=== PATIENT | male | born 1955 | race Caucasian/White ===

== ENCOUNTER 2016-12-11 09:18 | Emergency (ER) | payer MEDICARE, OTHER ==
[2016-12-11 09:29] VITALS: PULSE 16; RESP 67; TEMP 98.5
--- NOTE | 2016-12-11 09:36 | ED ---
Male Urogenital HPI - General Chief complaint: Urogenital Stated complaint: cathetar Time Seen by Provider: 12/11/16 09:31 Source: patient, family, RN notes reviewed Mode of arrival: wheelchair Limitations: no limitations - History of Present Illness Initial comments: Patient is a 61-year-old male presents to the emergency room for evaluation of Connell catheter issues. Patient has been here multiple times for removal and insertion of Connell catheter due to discomfort. Patient states he recently had an appointment with Dr. Siddiqui last month. Patient states Dr. Siddiqui removed the catheter for him even though it needs to be placed for 6 months. Patient states he has a Connell catheter for "weak bladder". Patient states he had the Connell catheter replaced about 2 weeks ago and he is now having discomfort and wants it removed again. Patient states that the catheter is pulling and irritating the tip of his penis. Patient states he stays at the [facility]. Patient states they do not take care of of his catheter. Patient states he wants it removed today. Patient states he was has discomfort every time Connell catheter is inserted. Patient denies any other symptoms or complaints at this time. Denies fevers, chills, shortness breath, chest pain, abdominal pain, nausea, vomiting. - Related Data Home Medications Medication Instructions Recorded Confirmed Aspirin 325 mg PO BID 09/18/16 12/11/16 Carbidopa-Levodopa 25-100 mg 1 tab PO QID 09/18/16 12/11/16 [Sinemet 25-100] Cholecalciferol [Vitamin D3] 1,000 unit PO DAILY 09/18/16 12/11/16 Docusate [Colace] 100 mg PO BID 09/18/16 12/11/16 Escitalopram [Lexapro] 15 mg PO DAILY 09/18/16 12/11/16 Loratadine [Claritin] 10 mg PO DAILY 09/18/16 12/11/16 Melatonin 10 mg PO HS 09/18/16 12/11/16 Menthol/Zinc Oxide [Calmoseptine 1 applic TOPICAL DAILY PRN 09/18/16 12/11/16 Ointment] Polyethylene Glycol 3350 [Miralax] 17 gm PO DAILY 09/18/16 12/11/16 Primidone [Mysoline] 250 mg PO BID 09/18/16 12/11/16 Propranolol [Inderal] 20 mg PO BID 09/18/16 12/11/16 Tamsulosin HCl [Flomax] 0.8 mg PO HS 09/18/16 12/11/16 clonazePAM [Clonazepam] 1 mg PO TID 09/18/16 12/11/16 LORazepam [Ativan] 2 mg PO HS 10/03/16 12/11/16 Previous Rx's Medication Instructions Recorded traMADol HCl [Ultram] 100 mg PO Q6HR PRN #60 tab 01/20/16 Sulfamethox-Tmp 800-160Mg [Bactrim 1 tab PO Q12HR 7 Days 10/23/16 DS 800-160 mg] Ciprofloxacin HCl [Cipro] 500 mg PO Q12HR 7 Days 12/11/16 Allergies Allergy/AdvReac Type Severity Reaction Status Date / Time No Known Allergies Allergy Verified 12/11/16 09:29 Review of Systems ROS Statement: Those systems with pertinent positive or pertinent negative responses have been documented in the HPI. ROS Other: All systems not noted in ROS Statement are negative. Past Medical History Past Medical History: Prostate Disorder Additional Past Medical History / Comment(s): Cerebral Palsy History of Any Multi-Drug Resistant Organisms: MRSA Date of last positivie culture/infection: 10/01/16 MDRO Source:: URINE Past Surgical History: Joint Replacement, Orthopedic Surgery, Prostate Surgery Additional Past Surgical History / Comment(s): 01/18/16 Total R hip arthroplasty. Other surgeries: LT HIP REPLACEMENT, TURP, hand tendon surg. Past Anesthesia/Blood Transfusion Reactions: No Reported Reaction Past Psychological History: No Psychological Hx Reported, Unable to Obtain Additional Psychological History / Comment(s): SUICIDE ATTEMPT OCTOBER 2013. Pt resides at [facility]. He is assisted into a wheelchair. He needs assistance with ADL's. Smoking Status: Never smoker Past Alcohol Use History: None Reported, Occasional Additional Past Alcohol Use History / Comment(s): Pt will drink a beer on occasion. Past Drug Use History: None Reported - Past Family History Mother Family Medical History: No Reported History Additional Family Medical History / Comment(s): Mother is healthy and is 91 yrs old. Father Family Medical History: Myocardial Infarction ([place]) Additional Family Medical History / Comment(s): Father at age 59. He had several NC's. General Exam - General Exam Comments Initial Comments: Laying in exam room, no acute distress. Limitations: no limitations General appearance: alert, in no apparent distress Head exam: Present: atraumatic, normocephalic, normal inspection Eye exam: Present: normal appearance ENT exam: Present: normal exam Neck exam: Present: normal inspection Respiratory exam: Present: normal lung sounds bilaterally. Absent: respiratory distress Cardiovascular Exam: Present: regular rate, normal rhythm, normal heart sounds GI/Abdominal exam: Present: soft, normal bowel sounds. Absent: distended, tenderness, guarding, rebound, rigid exam: Present: other (Open sore at the tip of the penis from connell catheter pulling. Hair wrapped around connell catheter at the opening of the uretha.) Back exam: Present: normal inspection Neurological exam: Present: alert, oriented X3 Psychiatric exam: Present: normal affect, normal mood Skin exam: Present: warm, dry, intact, normal color. Absent: rash Course Vital Signs 12/11/16 12/11/16 09:26 09:42 Temperature 98.5 F Pulse Rate 16 L Respiratory 67 H Rate Blood Pressure 122/88 O2 Sat by Pulse 97 Oximetry Medical Decision Making - Medical Decision Making Patient is a 61-year-old male presents emergency room for Connell catheter removal. Patient has been here multiple times for insertion and insertion of Connell catheter. Patient states he felt with Dr. Siddiqui last month and refuses to follow-up with him again. Patient states he stays at the [facility]. Patient's tip of penis is irritated with an open sore from Connell catheter pulling. There is also hair wrapped around the Connell catheter at the opening of the urethra. It appears that staff at the [facility] are not taking proper care patient's Connell catheter, which could be the cause of his discomfort. I offered to replace patient's Connell catheter. Patient refused replacement of Connell Catheter. Patient states he wants Connell catheter removed. I did discuss with patient that if we remove the Connell catheter he has risk of urinary retention and increase of infection. Patient states he understands everything that was discussed with him and states he still wants the Connell catheter removed. Urine suspicious for urinary tract infection. Patient was placed on antibiotics. I will provide patient with another urologist to follow-up with since he does not want to follow-up with Dr. Siddiqui. Return parameters discussed. Case discussed with Dr. Ackerman. - Lab Data Lab Results 12/11/16 Range/Units 10:01 Urine Color Yellow Urine Appearance Turbid (Clear) Urine pH 5.5 (5.0-8.0) Ur Specific [place] 1.018 (1.001-1.035) Urine Protein Trace H (Negative) Urine Glucose (UA) Negative (Negative) Urine Ketones Negative (Negative) Urine Blood Negative (Negative) Urine Nitrate Positive (Negative) Urine Bilirubin Negative (Negative) Urine Urobilinogen <2.0 (<2.0) mg/dL Ur Leukocyte Esterase Large H (Negative) Urine RBC 32 H (0-5) /hpf Urine WBC >182 H (0-5) /hpf Urine WBC Clumps Many H (None) /hpf Urine Bacteria Occasional H (None) /hpf Urine Mucus Many H (None) /hpf Disposition Clinical Impression: Urinary tract infection, Connell catheter problem Disposition: HOME SELF-CARE Condition: Good Instructions: Urinary Tract Infection in Men (ED) Additional Instructions: Take antibiotics as directed. Please follow-up with urologist on Monday. If any new symptom arises, symptoms worsen or fever develops, return to ER as soon as possible. Prescriptions: Ciprofloxacin HCl [Cipro] 500 mg PO Q12HR 7 Days Referrals: Kulwinder Ackerman MD [Primary Care Provider] - 1-2 days Antoine Blunt MD [STAFF PHYSICIAN] - 1-2 days Time of Disposition: 10:29
[2016-12-11 09:42] VITALS: BP 122/88
[2016-12-11 10:16] LABS: Appearance,Urine Turbid (Clear); Bacteria,Urine Occasional /hpf; Bilirubin,Urine Negative (Negative); Glucose,Urine (UA) Negative (Negative); Ketones,Urine Negative (Negative); Leukocyte Esterase,Urine Large (Negative); Mucus,Urine Many /hpf; Nitrite,Urine Positive (Negative); PH, Urine 5.5 (5.0-8.0); Particle Count 124687; Protein,Urine Trace (Negative); RBC,Urine 32 /hpf (0-5); Specific Gravity,Urine 1.018 (1.001-1.035); UA Billing (MACRO vs. MICRO) MICRO; Urobilinogen,Urine <2.0 mg/dL (<2.0); WBC,Urine >182 /hpf (0-5)
[2016-12-11] MEDS ORDERED: cefTRIAXone 1,000 MG VIAL (IM USE) IM STA (10:28)
== END 2016-12-11 10:35 | disposition home or self-care (01) ==
LOC: EC 09:18
DX: T83.84XA Pain due to genitourinary prosthetic devices, implants and grafts, initial encounter (principal); N39.0 Urinary tract infection, site not specified; S31.20XA Unspecified open wound of penis, initial encounter; Y73.8 Miscellaneous gastroenterology and urology devices associated with adverse incidents, not elsewhere classified; G80.9 Cerebral palsy, unspecified; N42.9 Disorder of prostate, unspecified; Z79.82 Long term (current) use of aspirin; Z79.899 Other long term (current) drug therapy; Z86.14 Personal history of Methicillin resistant Staphylococcus aureus infection
CPT/HCPCS: 81001; 87086; 87077; 87186; 99283; 96372; J0696

== ENCOUNTER 2016-12-31 10:11 | Emergency (ER) | payer MEDICARE, OTHER ==
[2016-12-31 10:28] VITALS: BP 167/73
--- NOTE | 2016-12-31 10:39 | ED ---
General Adult HPI - General Chief complaint: Urogenital Stated complaint: URINE RETENTION Time Seen by Provider: 12/31/16 10:21 Source: patient, family, RN notes reviewed Mode of arrival: wheelchair Limitations: no limitations - History of Present Illness Initial comments: 61-year-old male with history of cerebral palsy presenting for urinary retention. Patient states that he has recurrent issues with urinary retention. He does have history of connell catheter placement previously for this. He did have a Connell in over the past several weeks, but requested it be removed in the middle of November. After removing the Connell he did urinate well for a few weeks. However over the past 30 hours he has not urinated. He states he is feeling fullness in his suprapubic area. He denies any testicular pain. He denies any fevers or chills. He denies any other abdominal pain. He denies any nausea or vomiting. He states he follows with Dr. Siddiqui, urology. - Related Data Home Medications Medication Instructions Recorded Confirmed Aspirin 325 mg PO BID 09/18/16 12/11/16 Carbidopa-Levodopa 25-100 mg 1 tab PO QID 09/18/16 12/11/16 [Sinemet 25-100] Cholecalciferol [Vitamin D3] 1,000 unit PO DAILY 09/18/16 12/11/16 Docusate [Colace] 100 mg PO BID 09/18/16 12/11/16 Escitalopram [Lexapro] 15 mg PO DAILY 09/18/16 12/11/16 Loratadine [Claritin] 10 mg PO DAILY 09/18/16 12/11/16 Melatonin 10 mg PO HS 09/18/16 12/11/16 Menthol/Zinc Oxide [Calmoseptine 1 applic TOPICAL DAILY PRN 09/18/16 12/11/16 Ointment] Polyethylene Glycol 3350 [Miralax] 17 gm PO DAILY 09/18/16 12/11/16 Primidone [Mysoline] 250 mg PO BID 09/18/16 12/11/16 Propranolol [Inderal] 20 mg PO BID 09/18/16 12/11/16 Tamsulosin HCl [Flomax] 0.8 mg PO HS 09/18/16 12/11/16 clonazePAM [Clonazepam] 1 mg PO TID 09/18/16 12/11/16 LORazepam [Ativan] 2 mg PO HS 10/03/16 12/11/16 Previous Rx's Medication Instructions Recorded traMADol HCl [Ultram] 100 mg PO Q6HR PRN #60 tab 01/20/16 Sulfamethox-Tmp 800-160Mg [Bactrim 1 tab PO Q12HR 7 Days 10/23/16 DS 800-160 mg] Ciprofloxacin HCl [Cipro] 500 mg PO Q12HR 7 Days 12/11/16 Allergies Allergy/AdvReac Type Severity Reaction Status Date / Time No Known Allergies Allergy Verified 12/31/16 10:20 Review of Systems ROS Statement: Those systems with pertinent positive or pertinent negative responses have been documented in the HPI. ROS Other: All systems not noted in ROS Statement are negative. Past Medical History Past Medical History: Prostate Disorder Additional Past Medical History / Comment(s): Cerebral Palsy History of Any Multi-Drug Resistant Organisms: MRSA Date of last positivie culture/infection: 10/01/16 MDRO Source:: URINE Past Surgical History: Joint Replacement, Orthopedic Surgery, Prostate Surgery Additional Past Surgical History / Comment(s): 01/18/16 Total R hip arthroplasty. Other surgeries: LT HIP REPLACEMENT, TURP, hand tendon surg. Past Anesthesia/Blood Transfusion Reactions: No Reported Reaction Past Psychological History: No Psychological Hx Reported, Unable to Obtain Additional Psychological History / Comment(s): SUICIDE ATTEMPT OCTOBER 2013. Pt resides at [facility]. He is assisted into a wheelchair. He needs assistance with ADL's. Smoking Status: Never smoker Past Alcohol Use History: None Reported, Occasional Additional Past Alcohol Use History / Comment(s): Pt will drink a beer on occasion. Past Drug Use History: None Reported - Past Family History Mother Family Medical History: No Reported History Additional Family Medical History / Comment(s): Mother is healthy and is 91 yrs old. Father Family Medical History: Myocardial Infarction ([place]) Additional Family Medical History / Comment(s): Father at age 59. He had several [place]'s. General Exam - General Exam Comments Initial Comments: General: Awake and Alert. No acute distress. Does not appear acutely ill. Eyes: JENSEN, EOM intact. No nystagmus. No scleral icterus. HENT: Atraumatic, normocephalic. Mucous membranes moist. Trachea midline. Neck: The neck is supple, there is no tenderness or JVD. Cardiovascular: Regular rate and rhythm. No murmur, rub, or gallop is appreciated. Distal pulses intact. Respiratory: Lungs are clear to auscultation bilaterally. No wheezes, rales, rhonchi. No respiratory distress. Gastrointestinal: Soft, mild suprapubic tenderness. No rebound or guarding. Suprapubic distention. No masses or organomegaly noted. No CVA tenderness. Musculoskeletal: No tenderness. Normal ROM. No gross deformity. No strength deficits. Neurological: A&Ox3. Moves all extremities. He does have mild wrist contractures which are chronic. He has a baseline tremor which is chronic as well. Skin: Skin is warm and dry and no rashes or lesions are noted. Psychiatric: Cooperative, appropriate mood & affect, normal judgment. Limitations: no limitations Course Vital Signs 12/31/16 12/31/16 10:15 11:26 Temperature 97.1 F L 98 F Pulse Rate 73 55 L Respiratory 18 24 Rate Blood Pressure 167/73 167/73 O2 Sat by Pulse 93 L 97 Oximetry Medical Decision Making - Medical Decision Making 61-year-old male with history of CP presenting for urinary retention. Patient with chronic issues related to this. A Connell catheter was placed with over 1 L of urine out. UA was sent which shows no evidence of infection. Patient does follow up with Dr. Siddiqui and is recommended to follow-up with him within the next week. Connell was left in place due to urinary retention with leg bag. Patient is familiar with Connell care. Patient's father is also present in updated on Connell care and follow-up information. Patient otherwise stable for discharge home. Discussed concerning signs symptoms for immediate return to the ED. Patient and father are agreeable with plan discharge home. - Lab Data Lab Results 12/31/16 Range/Units 10:47 Urine Color Yellow Urine Appearance Clear (Clear) Urine pH 6.5 (5.0-8.0) Ur Specific [place] 1.008 (1.001-1.035) Urine Protein Negative (Negative) Urine Glucose (UA) Negative (Negative) Urine Ketones Negative (Negative) Urine Blood Negative (Negative) Urine Nitrate Negative (Negative) Urine Bilirubin Negative (Negative) Urine Urobilinogen <2.0 (<2.0) mg/dL Ur Leukocyte Esterase Negative (Negative) Disposition Clinical Impression: Urinary retention Disposition: HOME SELF-CARE Condition: Stable Instructions: Urinary Tract Infection in Men (ED), Urinary Retention in Men (ED ) Referrals: Kulwinder Ackerman MD [Primary Care Provider] - 1-2 days [place] Siddiqui MD [STAFF PHYSICIAN] - 1-2 days
[2016-12-31 10:56] LABS: Appearance,Urine Clear (Clear); Bilirubin,Urine Negative (Negative); Glucose,Urine (UA) Negative (Negative); Ketones,Urine Negative (Negative); Leukocyte Esterase,Urine Negative (Negative); Nitrite,Urine Negative (Negative); PH, Urine 6.5 (5.0-8.0); Protein,Urine Negative (Negative); Specific Gravity,Urine 1.008 (1.001-1.035); UA Billing (MACRO vs. MICRO) CHEM; Urobilinogen,Urine <2.0 mg/dL (<2.0)
[2016-12-31 11:28] VITALS: PULSE 55; RESP 24; TEMP 98
== END 2016-12-31 11:29 | disposition home or self-care (01) ==
LOC: EC 10:11
DX: R33.9 Retention of urine, unspecified (principal); G80.9 Cerebral palsy, unspecified; N42.9 Disorder of prostate, unspecified; Z79.82 Long term (current) use of aspirin; Z79.899 Other long term (current) drug therapy; Z86.14 Personal history of Methicillin resistant Staphylococcus aureus infection
CPT/HCPCS: 51702; 81003; 99283

== ENCOUNTER 2017-01-05 09:41 | Emergency (ER) | payer MEDICARE, OTHER ==
[2017-01-05 09:53] VITALS: RESP 18
--- NOTE | 2017-01-05 10:04 | ED ---
Male Urogenital HPI - General Chief complaint: Urogenital Stated complaint: Male Time Seen by Provider: 01/05/17 09:56 Source: patient, RN notes reviewed Mode of arrival: wheelchair Limitations: physical limitation - History of Present Illness Initial comments: This is a 61-year-old male presents emergency Department with chief complaint catheter problems. Patient has a history of cerebral palsy and has chronic [place]. Patient had a new one placed 5 days ago and had his urine checked at that time which showed no evidence of an infection. Patient over the last 24 hours as complain of burning sensation. Patient normally has a sensation when there is an infection. Patient has noticed that the urine is cloudy along with family. Patient states he states that the [place]. Patient denies fever, chills, abdominal pain. - Related Data Home Medications Medication Instructions Recorded Confirmed Aspirin 325 mg PO BID 09/18/16 01/05/17 Carbidopa-Levodopa 25-100 mg 1 tab PO QID 09/18/16 01/05/17 [Sinemet 25-100] Cholecalciferol [Vitamin D3] 1,000 unit PO DAILY 09/18/16 01/05/17 Docusate [Colace] 100 mg PO BID 09/18/16 01/05/17 Escitalopram [Lexapro] 15 mg PO DAILY 09/18/16 01/05/17 Loratadine [Claritin] 10 mg PO DAILY 09/18/16 01/05/17 Melatonin 10 mg PO HS 09/18/16 01/05/17 Menthol/Zinc Oxide [Calmoseptine 1 applic TOPICAL DAILY PRN 09/18/16 01/05/17 Ointment] Polyethylene Glycol 3350 [Miralax] 17 gm PO DAILY 09/18/16 01/05/17 Primidone [Mysoline] 250 mg PO BID 09/18/16 01/05/17 Propranolol [Inderal] 20 mg PO BID 09/18/16 01/05/17 Tamsulosin HCl [Flomax] 0.8 mg PO HS 09/18/16 01/05/17 clonazePAM [Clonazepam] 1 mg PO TID 09/18/16 01/05/17 LORazepam [Ativan] 2 mg PO HS 10/03/16 01/05/17 Previous Rx's Medication Instructions Recorded traMADol HCl [Ultram] 100 mg PO Q6HR PRN #60 tab 01/20/16 Sulfamethox-Tmp 800-160Mg [Bactrim 1 tab PO Q12HR 7 Days 10/23/16 DS 800-160 mg] Ciprofloxacin HCl [Cipro] 500 mg PO Q12HR 7 Days 12/11/16 Ciprofloxacin HCl [Cipro] 500 mg PO Q12HR #20 tablet 01/05/17 Phenazopyridine [Pyridium] 200 mg PO TID #6 tablet 01/05/17 Allergies Allergy/AdvReac Type Severity Reaction Status Date / Time No Known Allergies Allergy Verified 01/05/17 10:20 Review of Systems ROS Statement: Those systems with pertinent positive or pertinent negative responses have been documented in the HPI. ROS Other: All systems not noted in ROS Statement are negative. Past Medical History Past Medical History: Prostate Disorder Additional Past Medical History / Comment(s): Cerebral Palsy History of Any Multi-Drug Resistant Organisms: MRSA Date of last positivie culture/infection: 10/01/16 MDRO Source:: URINE Past Surgical History: Joint Replacement, Orthopedic Surgery, Prostate Surgery Additional Past Surgical History / Comment(s): 01/18/16 Total R hip arthroplasty. Other surgeries: LT HIP REPLACEMENT, TURP, hand tendon surg. Past Anesthesia/Blood Transfusion Reactions: No Reported Reaction Past Psychological History: No Psychological Hx Reported, Unable to Obtain Additional Psychological History / Comment(s): SUICIDE ATTEMPT OCTOBER 2013. Pt resides at [facility]. He is assisted into a wheelchair. He needs assistance with ADL's. Smoking Status: Never smoker Past Alcohol Use History: None Reported, Occasional Additional Past Alcohol Use History / Comment(s): Pt will drink a beer on occasion. Past Drug Use History: None Reported - Past Family History Mother Family Medical History: No Reported History Additional Family Medical History / Comment(s): Mother is healthy and is 91 yrs old. Father Family Medical History: Myocardial Infarction ([place]) Additional Family Medical History / Comment(s): Father at age 59. He had several [place]'s. General Exam Limitations: physical limitation General appearance: alert, in no apparent distress Respiratory exam: Present: normal lung sounds bilaterally. Absent: respiratory distress, wheezes, rales, rhonchi, stridor Cardiovascular Exam: Present: regular rate, normal rhythm, normal heart sounds. Absent: systolic murmur, diastolic murmur, rubs, gallop, clicks GI/Abdominal exam: Present: soft, normal bowel sounds. Absent: distended, tenderness, guarding, rebound, rigid exam: Present: other ([place] catheter was noted to have some purulent drainage within the tube) Course Vital Signs 01/05/17 09:47 Temperature 98.6 F Pulse Rate 55 L Respiratory 18 Rate Blood Pressure 164/69 O2 Sat by Pulse 97 Oximetry Medical Decision Making - Medical Decision Making 61-year-old male presented for [place] problems. Patient does have urinary tract infection. Patient will be discharged with medication return parameters were discussed. - Lab Data Lab Results 01/05/17 Range/Units 10:28 Urine Color Yellow Urine Appearance Turbid (Clear) Urine pH 8.5 H (5.0-8.0) Ur Specific [place] 1.015 (1.001-1.035) Urine Protein 1+ H (Negative) Urine Glucose (UA) Negative (Negative) Urine Ketones Negative (Negative) Urine Blood Negative (Negative) Urine Nitrate Positive (Negative) Urine Bilirubin Negative (Negative) Urine Urobilinogen <2.0 (<2.0) mg/dL Ur Leukocyte Esterase Large H (Negative) Urine WBC 44 H (0-5) /hpf Triple Phos Crystals Occasional H (None) /hpf Amorphous Sediment Rare H (None) /hpf Urine Bacteria Occasional H (None) /hpf Disposition Clinical Impression: Urinary tract infection, [place] catheter problem Disposition: HOME SELF-CARE Condition: Stable Instructions: Urinary Tract Infection in Men (ED) Additional Instructions: Please return to the Emergency Department if symptoms worsen or any other concerns. Prescriptions: Ciprofloxacin HCl [Cipro] 500 mg PO Q12HR #20 tablet Phenazopyridine [Pyridium] 200 mg PO TID #6 tablet Referrals: Kulwinder Ackerman MD [Primary Care Provider] - 1-2 days Time of Disposition: 10:58
[2017-01-05 10:46] LABS: Amorphous Sediment,Urine Rare /hpf; Appearance,Urine Turbid (Clear); Bacteria,Urine Occasional /hpf; Bilirubin,Urine Negative (Negative); Glucose,Urine (UA) Negative (Negative); Ketones,Urine Negative (Negative); Leukocyte Esterase,Urine Large (Negative); Nitrite,Urine Positive (Negative); PH, Urine 8.5 (5.0-8.0); Particle Count 128929; Protein,Urine 1+ (Negative); Specific Gravity,Urine 1.015 (1.001-1.035); Triple Phosphate Crystal,Urine Occasional /hpf; UA Billing (MACRO vs. MICRO) MICRO; Urobilinogen,Urine <2.0 mg/dL (<2.0); WBC,Urine 44 /hpf (0-5)
[2017-01-05 11:16] VITALS: BP 172/100; PULSE 62; TEMP 97.2
== END 2017-01-05 11:16 | disposition home or self-care (01) ==
LOC: EC 09:41
DX: T83.518A Infection and inflammatory reaction due to other urinary catheter, initial encounter (principal); N39.0 Urinary tract infection, site not specified; N42.9 Disorder of prostate, unspecified; Z86.14 Personal history of Methicillin resistant Staphylococcus aureus infection; Z79.82 Long term (current) use of aspirin; Z79.899 Other long term (current) drug therapy; Z98.890 Other specified postprocedural states; Y83.8 Other surgical procedures as the cause of abnormal reaction of the patient, or of later complication, without mention of misadventure at the time of the procedure
CPT/HCPCS: 81001; 87077; 87086; 87186; 99283

== ENCOUNTER 2017-01-21 09:17 | Emergency (ER) | payer MEDICARE, OTHER ==
[2017-01-21] MEDS ORDERED: LIDOCAINE URO-JET JELLY 2% 5 ML KIT URETHRAL ONE (09:44)
--- NOTE | 2017-01-21 10:42 | ED ---
Male Urogenital HPI - General Chief complaint: Urogenital Stated complaint: Catheter Time Seen by Provider: 01/21/17 09:23 Source: patient, family, RN notes reviewed Mode of arrival: wheelchair Limitations: language barrier, physical limitation - History of Present Illness Initial comments: 61-year-old male present emergency department for Osuna catheter problem. Patient has chronic indwelling Osuna secondary to cerebral palsy. Patient has not had his Osuna catheter change in one month. Patient states it is burning at this time. There is cloudiness the urine. Patient denies any abdominal pain , fever, chills. There is been no change in mental status. Family states that he states that [place] home. Patient offers no other complaints. Patient does have chronic infection secondary to his Osuna catheter. - Related Data Home Medications Medication Instructions Recorded Confirmed Aspirin 325 mg PO BID 09/18/16 01/05/17 Carbidopa-Levodopa 25-100 mg 1 tab PO QID 09/18/16 01/05/17 [Sinemet 25-100] Cholecalciferol [Vitamin D3] 1,000 unit PO DAILY 09/18/16 01/05/17 Docusate [Colace] 100 mg PO BID 09/18/16 01/05/17 Escitalopram [Lexapro] 15 mg PO DAILY 09/18/16 01/05/17 Loratadine [Claritin] 10 mg PO DAILY 09/18/16 01/05/17 Melatonin 10 mg PO HS 09/18/16 01/05/17 Menthol/Zinc Oxide [Calmoseptine 1 applic TOPICAL DAILY PRN 09/18/16 01/05/17 Ointment] Polyethylene Glycol 3350 [Miralax] 17 gm PO DAILY 09/18/16 01/05/17 Primidone [Mysoline] 250 mg PO BID 09/18/16 01/05/17 Propranolol [Inderal] 20 mg PO BID 09/18/16 01/05/17 Tamsulosin HCl [Flomax] 0.8 mg PO HS 09/18/16 01/05/17 clonazePAM [Clonazepam] 1 mg PO TID 09/18/16 01/05/17 LORazepam [Ativan] 2 mg PO HS 10/03/16 01/05/17 Previous Rx's Medication Instructions Recorded traMADol HCl [Ultram] 100 mg PO Q6HR PRN #60 tab 01/20/16 Sulfamethox-Tmp 800-160Mg [Bactrim 1 tab PO Q12HR 7 Days 10/23/16 DS 800-160 mg] Ciprofloxacin HCl [Cipro] 500 mg PO Q12HR 7 Days 12/11/16 Ciprofloxacin HCl [Cipro] 500 mg PO Q12HR #20 tablet 01/05/17 Phenazopyridine [Pyridium] 200 mg PO TID #6 tablet 01/05/17 Sulfamethox-Tmp 800-160Mg [Bactrim 1 each PO Q12HR #20 tab 01/21/17 Ds] Allergies Allergy/AdvReac Type Severity Reaction Status Date / Time No Known Allergies Allergy Verified 01/21/17 09:22 Review of Systems ROS Statement: Those systems with pertinent positive or pertinent negative responses have been documented in the HPI. ROS Other: All systems not noted in ROS Statement are negative. Past Medical History Past Medical History: Prostate Disorder Additional Past Medical History / Comment(s): Cerebral Palsy History of Any Multi-Drug Resistant Organisms: MRSA Date of last positivie culture/infection: 10/01/16 MDRO Source:: URINE Past Surgical History: Joint Replacement, Orthopedic Surgery, Prostate Surgery Additional Past Surgical History / Comment(s): 01/18/16 Total R hip arthroplasty. Other surgeries: LT HIP REPLACEMENT, TURP, hand tendon surg. Past Anesthesia/Blood Transfusion Reactions: No Reported Reaction Past Psychological History: No Psychological Hx Reported, Unable to Obtain Additional Psychological History / Comment(s): SUICIDE ATTEMPT OCTOBER 2013. Pt resides at [facility] He is assisted into a wheelchair. He needs assistance with ADL's. Smoking Status: Never smoker Past Alcohol Use History: None Reported, Occasional Additional Past Alcohol Use History / Comment(s): Pt will drink a beer on occasion. Past Drug Use History: None Reported - Past Family History Mother Family Medical History: No Reported History Additional Family Medical History / Comment(s): Mother is healthy and is 91 yrs old. Father Family Medical History: Myocardial Infarction ([place]) Additional Family Medical History / Comment(s): Father at age 59. He had several SC's. General Exam Limitations: language barrier, physical limitation General appearance: alert, in no apparent distress Respiratory exam: Present: normal lung sounds bilaterally. Absent: respiratory distress, wheezes, rales, rhonchi, stridor Cardiovascular Exam: Present: regular rate, normal rhythm, normal heart sounds. Absent: systolic murmur, diastolic murmur, rubs, gallop, clicks GI/Abdominal exam: Present: soft, normal bowel sounds. Absent: distended, tenderness, guarding, rebound, rigid Back exam: Absent: CVA tenderness (R), CVA tenderness (L) Course Vital Signs 01/21/17 01/21/17 01/21/17 09:20 10:00 11:01 Temperature 97.8 F 97.3 F L 98.5 F Pulse Rate 70 78 57 L Respiratory 18 12 24 Rate Blood Pressure 134/86 151/91 141/88 O2 Sat by Pulse 99 90 L 94 L Oximetry Medical Decision Making - Medical Decision Making 61-year-old male presented for Osuna catheter problems. Patient's Osuna catheter was exchanged. Patient was started on antibiotics at this time. Return parameters were discussed. - Lab Data Lab Results 01/21/17 Range/Units 10:46 Urine Color Light Yellow Urine Appearance Clear (Clear) Urine pH 7.5 (5.0-8.0) Ur Specific [place] 1.004 (1.001-1.035) Urine Protein Negative (Negative) Urine Glucose (UA) Negative (Negative) Urine Ketones Negative (Negative) Urine Blood Small H (Negative) Urine Nitrate Positive (Negative) Urine Bilirubin Negative (Negative) Urine Urobilinogen <2.0 (<2.0) mg/dL Ur Leukocyte Esterase Large H (Negative) Urine RBC 3 (0-5) /hpf Urine WBC 62 H (0-5) /hpf Urine WBC Clumps Occasional H (None) /hpf Urine Bacteria Rare H (None) /hpf Urine Mucus Rare H (None) /hpf Disposition Clinical Impression: Urinary tract infection, Osuna catheter problem Disposition: HOME SELF-CARE Condition: Stable Instructions: Urinary Tract Infection in Men (ED) Additional Instructions: Please return to the Emergency Department if symptoms worsen or any other concerns. Prescriptions: Sulfamethox-Tmp 800-160Mg [Bactrim Ds] 1 each PO Q12HR #20 tab Time of Disposition: 11:14
[2017-01-21 11:04] LABS: Appearance,Urine Clear (Clear); Bacteria,Urine Rare /hpf; Bilirubin,Urine Negative (Negative); Glucose,Urine (UA) Negative (Negative); Ketones,Urine Negative (Negative); Leukocyte Esterase,Urine Large (Negative); Mucus,Urine Rare /hpf; Nitrite,Urine Positive (Negative); PH, Urine 7.5 (5.0-8.0); Particle Count 4344; Protein,Urine Negative (Negative); RBC,Urine 3 /hpf (0-5); Specific Gravity,Urine 1.004 (1.001-1.035); UA Billing (MACRO vs. MICRO) MICRO; Urobilinogen,Urine <2.0 mg/dL (<2.0); WBC,Urine 62 /hpf (0-5)
[2017-01-21 11:36] VITALS: BP 154/78; PULSE 46; RESP 15; TEMP 97.1
== END 2017-01-21 11:45 | disposition home or self-care (01) ==
LOC: EC 09:17
DX: T83.511A Infection and inflammatory reaction due to indwelling urethral catheter, initial encounter (principal); N39.0 Urinary tract infection, site not specified; G80.9 Cerebral palsy, unspecified; Z79.82 Long term (current) use of aspirin; Z86.14 Personal history of Methicillin resistant Staphylococcus aureus infection; Z79.899 Other long term (current) drug therapy
CPT/HCPCS: 51702; 81001; 87086; 99283

== ENCOUNTER 2017-02-01 09:08 | Emergency (ER) | payer MEDICARE, OTHER ==
[2017-02-01 09:17] VITALS: PULSE 59; RESP 24
--- NOTE | 2017-02-01 10:10 | ED ---
Male Urogenital HPI - General Chief complaint: Urogenital Stated complaint: CATHETER BURNING Time Seen by Provider: 02/01/17 09:37 Source: patient, RN notes reviewed Mode of arrival: ambulatory Limitations: no limitations - History of Present Illness Initial comments: This a 61-year-old male presents emergency Department chief complaint of catheter burning. Patient has chronic Osuna secondary retention, supposedly. Patient states that it started burning again. Patient had multiple infections and multiple ER visits secondary to his Osuna catheter. Patient states that he does not follow-up with his physicians on a regular basis as directed. Patient denies any nausea vomiting. Denies any fevers or chills. Patient currently is staying at the [facility]. - Related Data Home Medications Medication Instructions Recorded Confirmed Aspirin 325 mg PO BID 09/18/16 01/05/17 Carbidopa-Levodopa 25-100 mg 1 tab PO QID 09/18/16 01/05/17 [Sinemet 25-100] Cholecalciferol [Vitamin D3] 1,000 unit PO DAILY 09/18/16 01/05/17 Docusate [Colace] 100 mg PO BID 09/18/16 01/05/17 Escitalopram [Lexapro] 15 mg PO DAILY 09/18/16 01/05/17 Loratadine [Claritin] 10 mg PO DAILY 09/18/16 01/05/17 Melatonin 10 mg PO HS 09/18/16 01/05/17 Menthol/Zinc Oxide [Calmoseptine 1 applic TOPICAL DAILY PRN 09/18/16 01/05/17 Ointment] Polyethylene Glycol 3350 [Miralax] 17 gm PO DAILY 09/18/16 01/05/17 Primidone [Mysoline] 250 mg PO BID 09/18/16 01/05/17 Propranolol [Inderal] 20 mg PO BID 09/18/16 01/05/17 Tamsulosin HCl [Flomax] 0.8 mg PO HS 09/18/16 01/05/17 clonazePAM [Clonazepam] 1 mg PO TID 09/18/16 01/05/17 LORazepam [Ativan] 2 mg PO HS 10/03/16 01/05/17 Previous Rx's Medication Instructions Recorded traMADol HCl [Ultram] 100 mg PO Q6HR PRN #60 tab 01/20/16 Sulfamethox-Tmp 800-160Mg [Bactrim 1 tab PO Q12HR 7 Days 10/23/16 DS 800-160 mg] Ciprofloxacin HCl [Cipro] 500 mg PO Q12HR 7 Days 12/11/16 Ciprofloxacin HCl [Cipro] 500 mg PO Q12HR #20 tablet 01/05/17 Phenazopyridine [Pyridium] 200 mg PO TID #6 tablet 01/05/17 Sulfamethox-Tmp 800-160Mg [Bactrim 1 each PO Q12HR #20 tab 01/21/17 Ds] Sulfamethox-Tmp 800-160Mg [Bactrim 1 each PO Q12HR #20 tab 02/01/17 Ds] Allergies Allergy/AdvReac Type Severity Reaction Status Date / Time No Known Allergies Allergy Verified 01/21/17 09:22 Review of Systems ROS Statement: Those systems with pertinent positive or pertinent negative responses have been documented in the HPI. ROS Other: All systems not noted in ROS Statement are negative. Past Medical History Past Medical History: Prostate Disorder Additional Past Medical History / Comment(s): Cerebral Palsy History of Any Multi-Drug Resistant Organisms: MRSA Date of last positivie culture/infection: 10/01/16 MDRO Source:: URINE Past Surgical History: Joint Replacement, Orthopedic Surgery, Prostate Surgery Additional Past Surgical History / Comment(s): 01/18/16 Total R hip arthroplasty. Other surgeries: LT HIP REPLACEMENT, TURP, hand tendon surg. Past Anesthesia/Blood Transfusion Reactions: No Reported Reaction Past Psychological History: No Psychological Hx Reported, Unable to Obtain Additional Psychological History / Comment(s): SUICIDE ATTEMPT OCTOBER 2013. Pt resides at [facility]. He is assisted into a wheelchair. He needs assistance with ADL's. Smoking Status: Never smoker Past Alcohol Use History: None Reported, Occasional Additional Past Alcohol Use History / Comment(s): Pt will drink a beer on occasion. Past Drug Use History: None Reported - Past Family History Mother Family Medical History: No Reported History Additional Family Medical History / Comment(s): Mother is healthy and is 91 yrs old. Father Family Medical History: Myocardial Infarction ([place]) Additional Family Medical History / Comment(s): Father at age 59. He had several PA's. General Exam Limitations: no limitations General appearance: alert, in no apparent distress Respiratory exam: Present: normal lung sounds bilaterally. Absent: respiratory distress, wheezes, rales, rhonchi, stridor Cardiovascular Exam: Present: regular rate, normal rhythm, normal heart sounds. Absent: systolic murmur, diastolic murmur, rubs, gallop, clicks GI/Abdominal exam: Present: soft, normal bowel sounds. Absent: distended, tenderness, guarding, rebound, rigid Course Vital Signs 02/01/17 09:15 Temperature 97.6 F Pulse Rate 59 L Respiratory 24 Rate O2 Sat by Pulse 94 L Oximetry Medical Decision Making - Medical Decision Making 61-year-old male presented for catheter discomfort. Patient is requesting the Osuna removed stating that he has urinated without one. I did explain to home and family room that he may have urinary retention and that they do need to return to emergency Department immediately if he is unable to urinate. Patient agrees this plan. Patient was placed on antibiotics for possible urinary tract infection. - Lab Data Lab Results 02/01/17 Range/Units 09:46 Urine Color Dark Brown Urine Appearance Turbid (Clear) Urine pH 5.5 (5.0-8.0) Ur Specific [place] 1.024 (1.001-1.035) Urine Protein 3+ H (Negative) Urine Glucose (UA) Negative (Negative) Urine Ketones 1+ H (Negative) Urine Blood Large H (Negative) Urine Nitrate Negative (Negative) Urine Bilirubin 1+ H (Negative) Urine Urobilinogen 2.0 (<2.0) mg/dL Ur Leukocyte Esterase Large H (Negative) Urine RBC >182 H (0-5) /hpf Urine WBC >182 H (0-5) /hpf Urine Bacteria Occasional H (None) /hpf Urine Mucus Many H (None) /hpf Disposition Clinical Impression: UTI (urinary tract infection), Dysuria Disposition: HOME SELF-CARE Condition: Stable Instructions: Urinary Tract Infection in Men (ED) Additional Instructions: Please return to the Emergency Department if symptoms worsen or any other concerns. Prescriptions: Sulfamethox-Tmp 800-160Mg [Bactrim Ds] 1 each PO Q12HR #20 tab Referrals: Kulwinder Ackerman MD [Primary Care Provider] - 1-2 days Indio Siddiqui MD [STAFF PHYSICIAN] - 1-2 days Time of Disposition: 10:15
[2017-02-01 10:11] LABS: Appearance,Urine Turbid (Clear); Bacteria,Urine Occasional /hpf; Bilirubin,Urine 1+ (Negative); Glucose,Urine (UA) Negative (Negative); Ketones,Urine 1+ (Negative); Leukocyte Esterase,Urine Large (Negative); Mucus,Urine Many /hpf; Nitrite,Urine Negative (Negative); PH, Urine 5.5 (5.0-8.0); Particle Count 48131; Protein,Urine 3+ (Negative); RBC,Urine >182 /hpf (0-5); Specific Gravity,Urine 1.024 (1.001-1.035); UA Billing (MACRO vs. MICRO) MICRO; WBC,Urine >182 /hpf (0-5)
[2017-02-01 10:46] VITALS: TEMP 100.6
== END 2017-02-01 10:47 | disposition home or self-care (01) ==
LOC: EC 09:08
DX: T83.84XA Pain due to genitourinary prosthetic devices, implants and grafts, initial encounter (principal); N39.0 Urinary tract infection, site not specified; G80.9 Cerebral palsy, unspecified; N42.9 Disorder of prostate, unspecified; Z79.899 Other long term (current) drug therapy; Z79.82 Long term (current) use of aspirin; Z86.14 Personal history of Methicillin resistant Staphylococcus aureus infection
CPT/HCPCS: 81001; 87077; 87086; 87186; 99283

== ENCOUNTER 2017-07-02 03:11 | Inpatient (IN) | payer MEDICARE, OTHER ==
--- NOTE | 2017-07-02 03:33 | ED ---
Fever HPI - General Chief Complaint: Fever Stated Complaint: Fever Time Seen by Provider: 07/02/17 03:11 Source: patient, EMS, RN notes reviewed Mode of arrival: EMS Limitations: no limitations - History of Present Illness Initial Comments: This is a 61-year-old male with a history of cerebral palsy who is brought in for evaluation of a fever. He reportedly had a fever of 99 tonight he was given Tylenol the temperature did go up to 100.7. He states he may have a slight cough he himself denies any chills or sweats. Reported be clammy. He does have tremors. Also per EMS per reports she has not gotten his primidone 250 mg per day for the past 3 days. He has any other complaints no dysuria or hematuria no phlegm production addition the patient does state that he is not been able urinate very well over last day or so. MD Complaint: fever - Related Data Home Medications Medication Instructions Recorded Confirmed Aspirin 325 mg PO BID 09/18/16 01/05/17 Carbidopa-Levodopa 25-100 mg 1 tab PO QID 09/18/16 01/05/17 [Sinemet 25-100] Cholecalciferol [Vitamin D3] 1,000 unit PO DAILY 09/18/16 01/05/17 Docusate [Colace] 100 mg PO BID 09/18/16 01/05/17 Escitalopram [Lexapro] 15 mg PO DAILY 09/18/16 01/05/17 Loratadine [Claritin] 10 mg PO DAILY 09/18/16 01/05/17 Melatonin 10 mg PO HS 09/18/16 01/05/17 Menthol/Zinc Oxide [Calmoseptine 1 applic TOPICAL DAILY PRN 09/18/16 01/05/17 Ointment] Polyethylene Glycol 3350 [Miralax] 17 gm PO DAILY 09/18/16 01/05/17 Primidone [Mysoline] 250 mg PO BID 09/18/16 01/05/17 Propranolol [Inderal] 20 mg PO BID 09/18/16 01/05/17 Tamsulosin HCl [Flomax] 0.8 mg PO HS 09/18/16 01/05/17 clonazePAM [Clonazepam] 1 mg PO TID 09/18/16 01/05/17 LORazepam [Ativan] 2 mg PO HS 10/03/16 01/05/17 Previous Rx's Medication Instructions Recorded traMADol HCl [Ultram] 100 mg PO Q6HR PRN #60 tab 01/20/16 Sulfamethox-Tmp 800-160Mg [Bactrim 1 tab PO Q12HR 7 Days 10/23/16 DS 800-160 mg] Ciprofloxacin HCl [Cipro] 500 mg PO Q12HR 7 Days 12/11/16 Ciprofloxacin HCl [Cipro] 500 mg PO Q12HR #20 tablet 01/05/17 Phenazopyridine [Pyridium] 200 mg PO TID #6 tablet 01/05/17 Sulfamethox-Tmp 800-160Mg [Bactrim 1 each PO Q12HR #20 tab 01/21/17 Ds] Sulfamethox-Tmp 800-160Mg [Bactrim 1 each PO Q12HR #20 tab 02/01/17 Ds] Allergies Allergy/AdvReac Type Severity Reaction Status Date / Time No Known Allergies Allergy Verified 01/21/17 09:22 Review of Systems ROS Statement: Those systems with pertinent positive or pertinent negative responses have been documented in the HPI. ROS Other: All systems not noted in ROS Statement are negative. Past Medical History Past Medical History: Prostate Disorder Additional Past Medical History / Comment(s): Cerebral Palsy History of Any Multi-Drug Resistant Organisms: MRSA Date of last positivie culture/infection: 10/01/16 MDRO Source:: URINE Past Surgical History: Joint Replacement, Orthopedic Surgery, Prostate Surgery Additional Past Surgical History / Comment(s): 01/18/16 Total R hip arthroplasty. Other surgeries: LT HIP REPLACEMENT, TURP, hand tendon surg. Past Anesthesia/Blood Transfusion Reactions: No Reported Reaction Past Psychological History: No Psychological Hx Reported, Unable to Obtain Smoking Status: Never smoker Past Alcohol Use History: None Reported, Occasional Past Drug Use History: None Reported - Past Family History Mother Family Medical History: No Reported History Additional Family Medical History / Comment(s): Mother is healthy and is 91 yrs old. Father Family Medical History: Myocardial Infarction ([place]) Additional Family Medical History / Comment(s): Father at age 59. He had several AR's. General Exam - General Exam Comments Initial Comments: This is a well-developed asthenic appearing male he is awake and alert he does demonstrate tremors Limitations: no limitations General appearance: alert, in no apparent distress Head exam: Present: atraumatic, normocephalic, normal inspection Eye exam: Present: normal appearance, PERRL, EOMI. Absent: scleral icterus, conjunctival injection, periorbital swelling ENT exam: Present: normal exam, mucous membranes moist Neck exam: Present: normal inspection. Absent: tenderness, meningismus, lymphadenopathy Respiratory exam: Present: normal lung sounds bilaterally. Absent: respiratory distress, wheezes, rales, rhonchi, stridor Cardiovascular Exam: Present: regular rate, normal rhythm, normal heart sounds. Absent: systolic murmur, diastolic murmur, rubs, gallop, clicks GI/Abdominal exam: Present: soft, normal bowel sounds. Absent: distended, tenderness, guarding, rebound, rigid Extremities exam: Present: normal inspection, full ROM, normal capillary refill. Absent: tenderness, pedal edema, joint swelling, calf tenderness Back exam: Present: normal inspection Neurological exam: Present: alert, oriented X3, CN II-XII intact, other ( Tremors noted to the extremities) Psychiatric exam: Present: normal affect, normal mood Skin exam: Present: warm, dry, intact, normal color. Absent: rash Course Vital Signs 07/02/17 07/02/17 03:12 06:22 Temperature 99.1 F 99.2 F Pulse Rate 80 101 H Respiratory 17 18 Rate Blood Pressure 120/62 O2 Sat by Pulse 95 Oximetry Medical Decision Making - Medical Decision Making I did discuss findings with the patient will be admitted for IV antibiotics will be given. - Lab Data Result diagrams: 07/02/17 04:15 07/02/17 04:15 Lab Results 07/02/17 07/02/17 07/02/17 Range/Units 04:15 04:15 04:15 WBC 14.8 H (3.8-10.6) k/uL RBC 4.23 L (4.30-5.90) m/uL Hgb 12.6 L (13.0-17.5) gm/dL Hct 38.8 L (39.0-53.0) % MCV 91.6 (80.0-100.0) fL MCH 29.8 (25.0-35.0) pg MCHC 32.5 (31.0-37.0) g/dL RDW 13.2 (11.5-15.5) % Plt Count 431 (150-450) k/uL Neutrophils % 87 % Lymphocytes % 6 % Monocytes % 6 % Eosinophils % 0 % Basophils % 0 % Neutrophils # 12.9 H (1.3-7.7) k/uL Lymphocytes # 0.8 L (1.0-4.8) k/uL Monocytes # 0.8 (0-1.0) k/uL Eosinophils # 0.0 (0-0.7) k/uL Basophils # 0.1 (0-0.2) k/uL Sodium 140 (137-145) mmol/L Potassium 4.6 (3.5-5.1) mmol/L Chloride 101 (98-107) mmol/L Carbon Dioxide 27 (22-30) mmol/L Anion Gap 12 mmol/L BUN 21 H (9-20) mg/dL Creatinine 0.80 (0.66-1.25) mg/dL Est GFR (MDRD) Af Amer >60 (>60 ml/min/1.73 sqM) Est GFR (MDRD) Non-Af >60 (>60 ml/min/1.73 sqM) Glucose 143 H (74-99) mg/dL Calcium 9.5 (8.4-10.2) mg/dL Magnesium 1.7 (1.6-2.3) mg/dL Total Bilirubin 0.9 (0.2-1.3) mg/dL AST 45 (17-59) U/L ALT 54 (21-72) U/L Alkaline Phosphatase 192 H (38-126) U/L Total Creatine Kinase 76 (55-170) U/L CK-MB (CK-2) 0.4 (0.0-2.4) ng/mL CK-MB (CK-2) Rel Index 0.5 Total Protein 7.1 (6.3-8.2) g/dL Albumin 3.5 (3.5-5.0) g/dL - Radiology Data Radiology results: report reviewed (I did review the imaging and reports are is evidence a right upper lobe infiltrate/consolidation), image reviewed Disposition Clinical Impression: Right upper lobe pneumonia, Febrile illness, acute Disposition: ADMITTED IP TO THIS [facility] Condition: Stable Referrals: Kulwinder Ackerman MD [Primary Care Provider] - 1-2 days
--- NOTE | 2017-07-02 04:26 | XR ---
History: Reason: cough Exam: XR CXR 2 VIEWS Comparison: 11/28/15 FINDINGS: There is now focal area of airspace consolidation at the right upper lobe and patchy areas of perihilar basilar ill-defined air space opacities. The cardiac silhouette appears unchanged. Nonacute appearing rib fractures noted. No evidence of pleural effusion. IMPRESSION: There is now focal area of airspace consolidation at the right upper lobe and patchy areas of perihilar basilar ill-defined air space opacities. Consideration would include multifocal pneumonia, clinically correlate. Recommend follow-up to resolution.
[2017-07-02 04:27] LABS: Basophils # (A) 0.1 k/uL (0-0.2); Basophils % (A) 0 %; CH 30.8; CHCM 33.8; Eosinophils % (A) 0 %; HCT 38.8 % (39.0-53.0); HDW 2.77; HGB 12.6 gm/dL (13.0-17.5); Luc # (Auto) 0.16; Luc % (Auto) 1; Lymphocytes # (A) 0.8 k/uL (1.0-4.8); Lymphocytes % (A) 6 %; MCH 29.8 pg (25.0-35.0); MCHC 32.5 g/dL (31.0-37.0); MCV 91.6 fL (80.0-100.0); Mean Platelet Volume 6.8; Monocytes # (A) 0.8 k/uL (0-1.0); Monocytes % (A) 6 %; Neutrophils # (A) 12.9 k/uL (1.3-7.7); Neutrophils % (A) 87 %; RBC 4.23 m/uL (4.30-5.90); RDW 13.2 % (11.5-15.5); WBC 14.8 k/uL (3.8-10.6); WBC (Perox) 14.11
[2017-07-02 04:40] LABS: ALT 54 U/L (21-72); AST 45 U/L (17-59); Alkaline Phosphatase 192 U/L (38-126); Anion Gap 12 mmol/L; Blood Urea Nitrogen 21 mg/dL (9-20); Calcium 9.5 mg/dL (8.4-10.2); Carbon Dioxide 27 mmol/L (22-30); Chloride 101 mmol/L (98-107); Glucose 143 mg/dL (74-99); Magnesium 1.7 mg/dL (1.6-2.3); Non-African American GFR(MDRD) >60 (>60 ml/min/1.73 sqM); Potassium 4.6 mmol/L (3.5-5.1); Sodium 140 mmol/L (137-145); Total Bilirubin 0.9 mg/dL (0.2-1.3); Total Protein 7.1 g/dL (6.3-8.2)
[2017-07-02 05:05] LABS: Creatine Kinase MB 0.4 ng/mL (0.0-2.4)
[2017-07-02] MEDS ORDERED: SODIUM CHLORIDE 0.9% 500 ML IV STA (05:49)
[2017-07-02] MEDS ORDERED: SODIUM CHLORIDE 0.9% 1,000 ML IV STA (05:49)
[2017-07-02] MEDS ORDERED: KETOROLAC 30 MG/ML 1 ML VIAL IVP STA (06:33)
[2017-07-02] MEDS ORDERED: clonazePAM 1 MG TAB PO STA (06:46)
[2017-07-02] MEDS ORDERED: PNEUMONIA PROTOCOL UTILIZED 1 EACH MISC PO PRN (07:29)
[2017-07-02] MEDS ORDERED: AZITHROMYCIN 500 MG in SODIUM CHLORIDE 0.9% 250 ML IVPB STA (07:29)
[2017-07-02] MEDS ORDERED: clonazePAM 1 MG TAB PO SCH (09:00)
[2017-07-02] MEDS: ASPIRIN 325 MG TAB PO SCH ×2 (10:08→20:45)
[2017-07-02] MEDS: CARBIDOPA-LEVODOPA 25-100 MG 1 EACH TAB PO SCH ×3 (10:08→13:42)
[2017-07-02] MEDS: PROPRANOLOL 20 MG TAB PO SCH ×2 (10:09→20:46)
[2017-07-02] MEDS: LORATADINE 10 MG TAB PO SCH (10:09)
[2017-07-02] MEDS: CHOLECALCIFEROL 1,000 UNIT TAB PO SCH (10:09)
[2017-07-02] MEDS: ENOXAPARIN 40 MG/0.4 ML SYRINGE SQ SCH (10:09)
[2017-07-02] MEDS: PRIMIDONE 250 MG TAB PO SCH ×2 (10:09→20:46)
[2017-07-02] MEDS: DOCUSATE 100 MG CAP PO SCH ×2 (10:09→20:46)
[2017-07-02] MEDS: ESCITALOPRAM 10 MG TAB PO SCH (10:09)
[2017-07-02] MEDS: POLYETHYLENE GLYCOL 3350 17 GM POWD.PACK PO SCH (10:10)
[2017-07-02 15:56] LABS: Appearance,Urine Clear (Clear); Bilirubin,Urine Negative (Negative); Glucose,Urine (UA) Negative (Negative); Ketones,Urine Negative (Negative); Leukocyte Esterase,Urine Negative (Negative); Mucus,Urine Rare /hpf; Nitrite,Urine Negative (Negative); Particle Count 2465; Protein,Urine 1+ (Negative); RBC,Urine 24 /hpf (0-5); UA Billing (MACRO vs. MICRO) MICRO; Urobilinogen,Urine <2.0 mg/dL (<2.0); WBC,Urine 4 /hpf (0-5)
[2017-07-02] MEDS: TAMSULOSIN 0.4 MG CAP.ER.24H PO SCH (20:45)
[2017-07-02] MEDS: LORazepam 1 MG TAB PO SCH (20:46)
[2017-07-02] MEDS: MELATONIN 5 MG TABLET PO SCH (20:46)
[2017-07-02] MEDS ORDERED: MELATONIN 10 MG PO SCH (21:00)
[2017-07-02] MEDS: clonazePAM 1 MG TAB PO PRN (22:25)
[2017-07-02] MEDS: ACETAMINOPHEN TAB 325 MG TAB PO PRN (22:34)
[2017-07-03] MEDS: AZITHROMYCIN 500 MG TAB PO SCH (07:51)
[2017-07-03] MEDS: ESCITALOPRAM 10 MG TAB PO SCH (07:51)
[2017-07-03] MEDS: PROPRANOLOL 20 MG TAB PO SCH ×2 (07:51→21:47)
[2017-07-03] MEDS: LORATADINE 10 MG TAB PO SCH (07:51)
[2017-07-03] MEDS: ASPIRIN 325 MG TAB PO SCH ×2 (07:51→21:46)
[2017-07-03] MEDS: DOCUSATE 100 MG CAP PO SCH ×2 (07:52→21:46)
[2017-07-03] MEDS: POLYETHYLENE GLYCOL 3350 17 GM POWD.PACK PO SCH (07:52)
[2017-07-03] MEDS: CHOLECALCIFEROL 1,000 UNIT TAB PO SCH (07:52)
[2017-07-03] MEDS: ENOXAPARIN 40 MG/0.4 ML SYRINGE SQ SCH (08:07)
[2017-07-03] MEDS: PRIMIDONE 250 MG TAB PO SCH ×2 (08:07→22:32)
[2017-07-03 08:59] LABS: Basophils # (A) 0.1 k/uL (0-0.2); Basophils % (A) 0 %; CH 29.8; CHCM 32.3; Eosinophils # (A) 0.3 k/uL (0-0.7); Eosinophils % (A) 2 %; HCT 35.7 % (39.0-53.0); HDW 2.77; HGB 11.6 gm/dL (13.0-17.5); Luc # (Auto) 0.19; Luc % (Auto) 1; Lymphocytes # (A) 1.1 k/uL (1.0-4.8); Lymphocytes % (A) 8 %; MCH 30.1 pg (25.0-35.0); MCHC 32.4 g/dL (31.0-37.0); MCV 92.8 fL (80.0-100.0); Mean Platelet Volume 6.5; Monocytes # (A) 0.6 k/uL (0-1.0); Monocytes % (A) 4 %; Neutrophils # (A) 12.8 k/uL (1.3-7.7); Neutrophils % (A) 85 %; RBC 3.84 m/uL (4.30-5.90); RDW 12.3 % (11.5-15.5); WBC 15.1 k/uL (3.8-10.6)
--- NOTE | 2017-07-03 10:10 | XR ---
EXAMINATION TYPE: XR chest 2V DATE OF EXAM: 07/03/2017 COMPARISON: Prior chest x-ray 07/02/2017 HISTORY: Pneumonia, cough TECHNIQUE: Frontal and lateral views of the chest are obtained. FINDINGS: Perihilar airspace disease persists greater on the right. No evident pneumothorax or pleur al effusion. Interstitium is increased. The heart is enlarged although patient is rotated. Multiple b ilateral rib fractures again noted. IMPRESSION: Findings could represent pneumonia, correlate to exclude congestive heart failure with p ulmonary edema.
--- NOTE | 2017-07-03 16:37 | HP ---
DATE OF ADMISSION: 07/02/2017 PRESENTING COMPLAINT: Fever, cough. HISTORY OF PRESENTING COMPLAINT: This is a very pleasant 61-year-old patient of Dr. Ackerman who is a resident of [facility]. The patient's chronic medical conditions include cerebral palsy with tremors, GERD, hypertension, osteoarthritis, BPH. Per the EMS run sheet, the patient developed a fever up to 100.7, got a cough, some shortness of breath. Admitted for same. Appetite had gone down, feeling tired and rundown. Chest x-ray did confirm right upper and middle lobe, multilobe pneumonia. Started on antibiotics. The patient is not the best of historians because of her cerebral palsy. REVIEW OF SYSTEMS: CONSTITUTIONAL: Febrile, tired. HEENT: None. RESPIRATORY: Cough and shortness of breath. CARDIOVASCULAR: None. GASTROINTESTINAL: None. GENITOURINARY: None. MUSCULOSKELETAL: Arthritic pain in joints. DERMATOLOGIC: None. HEMATOLOGIC: None. LYMPHATIC: None. PSYCHIATRY: Unable to assist. NEUROLOGIC: Cerebral palsy and baseline tremors and jerky movements. Past history of GERD, hypertension, osteoarthritis, BPH, cerebral palsy with tremors. PAST SURGICAL HISTORY: Joint replacement, prostate surgery, right total hip arthroplasty, left hip replacement, hand tendon surgery. PSYCH HISTORY: History of depression, suicide attempt in 2013. SOCIAL HISTORY: Resident of [facility], uses a wheelchair with assistance, needs help with ADLs. No smoking. Drinks beer occasionally. FAMILY HISTORY: Mother is healthy at age 91. HOME MEDICATIONS: 1. Flomax 0.8 mg q.h.s. 2. Ultram 100 mg p.o. q6 p.r.n. 3. Klonopin 1 mg p.o. t.i.d. 4. Inderal 20 mg p.o. b.i.d. 5. Mysoline 250 mg p.o. daily. 6. MiraLAX 350/17 gm p.o. daily. 7. Calmoseptine one application topical q12. 8. Melatonin 10 mg p.o. q.h.s. 9. Claritin 10 mg p.o. daily. 10. Lexapro 10 mg p.o. daily. 11. Colace 100 mg p.o. b.i.d. 12. Vitamin D 3000 units p.o. daily. 13. Aspirin 325 mg p.o. b.i.d. ALLERGIES: None. On examination, temperature noted at the EMS run sheet 100.7, pulse 101, respirations 18, blood pressure 120/62, pulse 95% on 3 liters. GENERAL APPEARANCE: Laying in bed with generalize myoclonus. EYES: Pupils equal. Conjunctivae normal. ENT: Oral cavity, dry mucous membranes moist. NECK: Unable to assess. Mass not palpable. RESPIRATORY EFFORT: Increased. LUNGS: Decreased breath sounds. CARDIOVASCULAR: First and second sounds normal. No edema. ABDOMEN: Soft. Liver and spleen not palpable. LYMPHATIC: No lymph node felt in neck or axillae. PSYCHIATRY: The patient is answering questions but somewhat anxious appearing. NEUROLOGIC: Patient seems to have some myoclonic jerks. INVESTIGATIONS: White count 14.8, hemoglobin 12.6. Potassium 4.6. Chest x- ray reviewed by me shows right middle and upper lobe infiltrates. ASSESSMENT: 1. Right-sided multilobular pneumonia, present on admission. Suspect gram negative organism causing sepsis on admission. 2. Cerebral palsy with what may be myoclonic jerks. 3. Gastroesophageal reflux disease. 4. Essential hypertension. 5. Primary osteoarthritis of multiple joints. 6. Benign prostatic hypertrophy. PLAN: Home medications resumed. Patient put on IV ceftriaxone, Zithromax, Lovenox for DVT prophylaxis, IV fluids. Patient did tolerate some lunch per the nurse. Repeat CBC in the morning. MTDD
--- NOTE | 2017-07-03 20:03 | P.PN ---
<Liss Earl - Last Filed: 07/04/17 23:43> Progress Note - Text DATE OF SERVICE: 07/03/2017 PRESENTING COMPLAINT: fever, cough INTERVAL HISTORY: This is 61-year-old male who presented with fever cough shortness of breath, chest x-ray revealed right upper, middle multilobe pneumonia. 07/03/2017: Patient lying in bed appears comfortable. Some myoclonic jerking noted. Ate about 35% of his breakfast, requires assistance with daily activities. Last BM prior to admission. REVIEW OF SYSTEMS: Done for constitutional ,cardiovascular, GI, pulmonary with relevant findings as above. CURRENT MEDICATIONS Aspirin, a Zithromax, ceftriaxone, Klonopin, Lovenox, Lexapro, Claritin, Ativan , melatonin, MiraLAX PHYSICAL EXAM VITAL SIGNS: Temperature 98.9, pulse 78, respirations 19, blood pressure 107/52, oxygen saturation 100% on room air. GENERAL APPEARANCE: Lying in bed, has some generalized tremoring. EYES: Pupils equal. Conjunctiva normal. NECK: Unable to assess. Mass not palpable. RESPIRATORY: Respiratory effort normal. Decreased breath sounds CARDIOVASCULAR: First and second sounds normal. No edema. ABDOMEN: Soft. Liver and spleen not palpable. No tenderness. No mass palpable. PSYCHIATRY: Alert and oriented x3. Somewhat anxious appearing. NEUROLOGICAL: Some myoclonic jerks noted INVESTIGATIONS: White blood cell count 15.1, hemoglobin 11.6, Blood cultures no growth after 24 hours Urine culture no growth after 18 hours. ASSESSMENT: -Right-sided multilobar pneumonia, present on admission. Suspect gram-negative organism causing sepsis on admission. -Cerebral palsy with what may be myoclonic jerks. -Gastroesophageal reflux disease. -Essential hypertension. -Primary osteoarthritis of multiple joints. -Benign prostatic hypertrophy. PLAN: Continue IV antibiotics and will follow chest x-ray to monitor progress as well as lab values. We'll have PT and OT evaluate and work with patient. Plan of care discussed with the patient and he is in agreement. We'll continue monitor closely BOWLING PIN REFINISHER statement: Patient was seen and examined by nurse practitioner Liss Earl and all elements of the case discussed with attending Dr. Barnes <Nelson Barnes - Last Filed: 07/05/17 19:30> Progress Note - Text Attending note. Date of service-07/03/2017 This patient was seen and examined by me . I reviewed the note of my nurse practitioner, Ms. Earl. Discussed with her, additional findings as below. Admitted with pneumonia. Had some fever. Appetite is still not good. Spontaneous movements present. Patient states at baseline On examination: Lungs-decreased breath sounds, myoclonic jerks, fever last night was 100.6 Investigations: White count 15.1, hemoglobin 11.6, chest x-ray infiltrate Assessment and plan: Continue current medication treatment plan. Getting antibiotics. Pneumonia in a patient cerebral palsy. Slow to respond
[2017-07-03] MEDS: LORazepam 1 MG TAB PO SCH (21:46)
[2017-07-03] MEDS: MELATONIN 5 MG TABLET PO SCH (21:47)
[2017-07-03] MEDS: ACETAMINOPHEN TAB 325 MG TAB PO PRN (22:31)
[2017-07-03] MEDS: TAMSULOSIN 0.4 MG CAP.ER.24H PO SCH (22:32)
[2017-07-04 08:41] LABS: Basophils % (A) 0 %; CH 29.9; CHCM 32.6; Eosinophils # (A) 0.5 k/uL (0-0.7); Eosinophils % (A) 4 %; HDW 2.84; HGB 11.4 gm/dL (13.0-17.5); Luc # (Auto) 0.16; Luc % (Auto) 1; Lymphocytes # (A) 1.2 k/uL (1.0-4.8); Lymphocytes % (A) 11 %; MCH 29.9 pg (25.0-35.0); MCHC 32.5 g/dL (31.0-37.0); Mean Platelet Volume 6.4; Monocytes # (A) 0.5 k/uL (0-1.0); Monocytes % (A) 5 %; Neutrophils # (A) 9.2 k/uL (1.3-7.7); Neutrophils % (A) 79 %; RDW 12.3 % (11.5-15.5); WBC 11.6 k/uL (3.8-10.6); WBC (Perox) 12.84
[2017-07-04 08:56] LABS: Anion Gap 8 mmol/L; Blood Urea Nitrogen 11 mg/dL (9-20); Calcium 8.4 mg/dL (8.4-10.2); Carbon Dioxide 28 mmol/L (22-30); Chloride 105 mmol/L (98-107); Glucose 91 mg/dL (74-99); Non-African American GFR(MDRD) >60 (>60 ml/min/1.73 sqM); Potassium 4.4 mmol/L (3.5-5.1); Sodium 141 mmol/L (137-145)
[2017-07-04] MEDS: ESCITALOPRAM 10 MG TAB PO SCH (09:35)
[2017-07-04] MEDS: ENOXAPARIN 40 MG/0.4 ML SYRINGE SQ SCH (09:35)
[2017-07-04] MEDS: DOCUSATE 100 MG CAP PO SCH ×2 (09:36→21:24)
[2017-07-04] MEDS: PROPRANOLOL 20 MG TAB PO SCH ×2 (09:36→21:25)
[2017-07-04] MEDS: ASPIRIN 325 MG TAB PO SCH ×2 (09:36→21:24)
[2017-07-04] MEDS: AZITHROMYCIN 500 MG TAB PO SCH (09:36)
[2017-07-04] MEDS: PRIMIDONE 250 MG TAB PO SCH ×2 (09:36→21:24)
[2017-07-04] MEDS: CHOLECALCIFEROL 1,000 UNIT TAB PO SCH (09:37)
[2017-07-04] MEDS: LORATADINE 10 MG TAB PO SCH (09:37)
[2017-07-04] MEDS: POLYETHYLENE GLYCOL 3350 17 GM POWD.PACK PO SCH (09:39)
[2017-07-04] MEDS: MELATONIN 5 MG TABLET PO SCH (21:24)
[2017-07-04] MEDS: TAMSULOSIN 0.4 MG CAP.ER.24H PO SCH (21:25)
[2017-07-04] MEDS: LORazepam 1 MG TAB PO SCH (21:26)
--- NOTE | 2017-07-04 23:57 | P.PN ---
<Liss Earl - Last Filed: 07/04/17 23:48> Progress Note - Text DATE OF SERVICE: 07/04/2017 PRESENTING COMPLAINT: fever, cough INTERVAL HISTORY: This is 61-year-old male who presented with fever cough shortness of breath, chest x-ray revealed right upper, middle no multilobe pneumonia. 07/03/2017: Patient lying in bed appears comfortable. Some myoclonic jerking noted. Ate about 35% of his breakfast, requires assistance with daily activities. Last BM prior to admission. 07/04/2017: Lying in bed appears somewhat comfortable, has myoclonic jerking. Ate about 50 % of his breakfast, requires assistance with daily activities. Last B.M. was today. REVIEW OF SYSTEMS: Done for constitutional ,cardiovascular, GI, pulmonary with relevant findings as above. CURRENT MEDICATIONS Aspirin, a Zithromax, ceftriaxone, Klonopin, Lovenox, Lexapro, Claritin, Ativan , melatonin, MiraLAX PHYSICAL EXAM VITAL SIGNS: Temperature 98.3, pulse 90, respiratory rate 18, blood pressure 110/67, oxygen saturation 92% on 3 L. GENERAL APPEARANCE: Lying in bed, has some generalized tremoring. EYES: Pupils equal. Conjunctiva normal. NECK: Unable to assess. Mass not palpable. RESPIRATORY: Respiratory effort normal. Decreased breath sounds CARDIOVASCULAR: First and second sounds normal. No edema. ABDOMEN: Soft. Liver and spleen not palpable. No tenderness. No mass palpable. PSYCHIATRY: Alert and oriented x3. Somewhat anxious appearing. NEUROLOGICAL: Some myoclonic jerks noted INVESTIGATIONS: White blood cell count 11.6, hemoglobin 11.4, creatinine 0.65. Blood cultures no growth after 48 hours Urine culture no growth after 18 hours. ASSESSMENT: -Right-sided multilobar pneumonia, present on admission. Suspect gram-negative organism causing sepsis on admission, improving -Cerebral palsy with what may be myoclonic jerks. -Gastroesophageal reflux disease. -Essential hypertension. -Primary osteoarthritis of multiple joints. -Benign prostatic hypertrophy. PLAN: Continue IV antibiotics and will follow chest x-ray to monitor progress as well as lab values. We'll have PT and OT evaluate and work with patient. Discharge planning for [facility] on the [place]. We'll continue monitor closely USER EXPERIENCE DESIGNER statement: Patient was seen and examined by nurse practitioner Liss Earl and all elements of the case discussed with attending Dr. Barnes. <Nelson Barnes - Last Filed: 07/05/17 19:32> Progress Note - Text Attending note. Date of service-07/04/2017 This patient was seen and examined by me . I reviewed the note of my nurse practitioner, Ms. Earl. Discussed with her, additional findings as below. Patient is cerebral palsy admitted with pneumonia. Ismael fever last night On examination: Lungs-decreased breath sounds, myoclonic jerks, awake answering questions Investigations: White count 11.6 Assessment and plan: Pneumonia, slow to respond, possible aspiration. Continue antibiotics. If still spikes a fever may need to change antibiotics.
[2017-07-05] MEDS: ACETAMINOPHEN TAB 325 MG TAB PO PRN ×3 (07:53→21:28)
[2017-07-05] MEDS: POLYETHYLENE GLYCOL 3350 17 GM POWD.PACK PO SCH (07:53)
[2017-07-05] MEDS: ENOXAPARIN 40 MG/0.4 ML SYRINGE SQ SCH (07:54)
[2017-07-05] MEDS: AZITHROMYCIN 500 MG TAB PO SCH (07:54)
[2017-07-05] MEDS: CHOLECALCIFEROL 1,000 UNIT TAB PO SCH (07:54)
[2017-07-05] MEDS: ESCITALOPRAM 10 MG TAB PO SCH (07:54)
[2017-07-05] MEDS: ASPIRIN 325 MG TAB PO SCH ×2 (07:54→20:37)
[2017-07-05] MEDS: DOCUSATE 100 MG CAP PO SCH ×2 (07:54→20:37)
[2017-07-05] MEDS: PROPRANOLOL 20 MG TAB PO SCH ×2 (07:55→21:08)
[2017-07-05] MEDS: PRIMIDONE 250 MG TAB PO SCH ×2 (07:55→20:38)
[2017-07-05] MEDS: LORATADINE 10 MG TAB PO SCH (07:55)
[2017-07-05] MEDS: MELATONIN 5 MG TABLET PO SCH (20:37)
[2017-07-05] MEDS: LORazepam 1 MG TAB PO SCH (20:37)
[2017-07-05] MEDS: TAMSULOSIN 0.4 MG CAP.ER.24H PO SCH (20:48)
[2017-07-05 22:15] LABS: Basophils # (A) 0.1 k/uL (0-0.2); Basophils % (A) 1 %; CH 30.6; CHCM 32.9; Eosinophils # (A) 0.4 k/uL (0-0.7); Eosinophils % (A) 4 %; HCT 36.4 % (39.0-53.0); HDW 2.81; HGB 11.6 gm/dL (13.0-17.5); Luc # (Auto) 0.16; Luc % (Auto) 2; Lymphocytes # (A) 1.2 k/uL (1.0-4.8); Lymphocytes % (A) 14 %; MCH 29.7 pg (25.0-35.0); MCHC 31.8 g/dL (31.0-37.0); MCV 93.3 fL (80.0-100.0); Monocytes # (A) 0.5 k/uL (0-1.0); Monocytes % (A) 6 %; Neutrophils # (A) 6.5 k/uL (1.3-7.7); Neutrophils % (A) 73 %; WBC 8.8 k/uL (3.8-10.6); WBC (Perox) 9.24
[2017-07-05 22:25] LABS: ALT 38 U/L (21-72); AST 20 U/L (17-59); Alkaline Phosphatase 148 U/L (38-126); Anion Gap 11 mmol/L; Blood Urea Nitrogen 11 mg/dL (9-20); Calcium 8.6 mg/dL (8.4-10.2); Carbon Dioxide 25 mmol/L (22-30); Chloride 103 mmol/L (98-107); Glucose 85 mg/dL (74-99); Non-African American GFR(MDRD) >60 (>60 ml/min/1.73 sqM); Potassium 4.1 mmol/L (3.5-5.1); Sodium 139 mmol/L (137-145); Total Bilirubin 0.4 mg/dL (0.2-1.3); Total Protein 6.1 g/dL (6.3-8.2)
--- NOTE | 2017-07-05 23:12 | P.PN ---
<Liss Earl - Last Filed: 07/05/17 23:03> Progress Note - Text DATE OF SERVICE: 07/05/2017 PRESENTING COMPLAINT: fever, cough INTERVAL HISTORY: This is 61-year-old male who presented with fever cough shortness of breath, chest x-ray revealed right upper, middle no multilobe pneumonia. 07/03/2017: Patient lying in bed appears comfortable. Some myoclonic jerking noted. Ate about 35% of his breakfast, requires assistance with daily activities. Last BM prior to admission. 07/04/2017: Lying in bed appears somewhat comfortable, has myoclonic jerking. Ate about 50 % of his breakfast, requires assistance with daily activities. Last B.M. was today. 07/05/2017: Has myoclonic jerking. Also noted to have a cough, and concerns about possibility of aspiration, his morning patient had a coughing episode and then had some emesis while he was having breakfast. patient continues to have febrile episodes throughout the night and into today. Cultures are negative. Patient continues on antibiotics. Appetite fair, concerns about aspiration. Patient placed on aspiration precautions, pulmonology consulted for further evaluation. Last BM was yesterday REVIEW OF SYSTEMS: Done for constitutional ,cardiovascular, GI, pulmonary with relevant findings as above. CURRENT MEDICATIONS Aspirin, a Zithromax, ceftriaxone, Klonopin, Lovenox, Lexapro, Claritin, Ativan , melatonin, MiraLAX PHYSICAL EXAM VITAL SIGNS: Temperature 100.4, pulse 73, respirations 19, blood pressure 131/62, oxygen saturation 93% on 3 L GENERAL APPEARANCE: Lying in bed, has some generalized tremoring. EYES: Pupils equal. Conjunctiva normal. NECK: Unable to assess. Mass not palpable. RESPIRATORY: Respiratory effort normal. Decreased breath sounds CARDIOVASCULAR: First and second sounds normal. No edema. ABDOMEN: Soft. Liver and spleen not palpable. No tenderness. No mass palpable. PSYCHIATRY: Alert and oriented x3. Somewhat anxious appearing. NEUROLOGICAL: Some myoclonic jerks noted INVESTIGATIONS: White blood cell count 8.8, hemoglobin 11.6, sodium 139, potassium 4.1, BUN 11, creatinine 0.60, ASSESSMENT: -Right-sided multilobar pneumonia, present on admission. Suspect gram-negative organism causing sepsis on admission, improving -Cerebral palsy with what may be myoclonic jerks. -Gastroesophageal reflux disease. -Essential hypertension. -Primary osteoarthritis of multiple joints. -Benign prostatic hypertrophy. PLAN: Continue IV antibiotics and will follow chest x-ray to monitor progress as well as lab values. We'll have PT and OT evaluate and work with patient. Discharge planning for [facility] on the [place] in the next 24-48 hours. We'll continue monitor closely FLEET MANAGER/DISPATCH statement: Patient was seen and examined by nurse practitioner Liss Earl and all elements of the case discussed with attending Dr. Banres. <Nelson Barnes - Last Filed: 07/09/17 13:58> Progress Note - Text Attending note. Date of service-07/05/2017 This patient was seen and examined by me . I reviewed the note of my nurse practitioner, Ms. Earl. Discussed with her, additional findings as below. Admitted with multilobar pneumonia. Having fevers again. Decreased oral intake. Baseline myoclonic jerks On examination: Lungs-decreased breath sounds, myoclonic jerks continue, able to communicate and talk at baseline Investigations: White count 8.8 Assessment and plan: Right-sided multilobar pneumonia, with sepsis on presentation having fevers again, slow to respond we need to change antibiotics. We will consult pulmonary. Chest x-ray to be done.
[2017-07-06] MEDS: clonazePAM 1 MG TAB PO PRN (04:55)
[2017-07-06] MEDS: POLYETHYLENE GLYCOL 3350 17 GM POWD.PACK PO SCH (08:22)
[2017-07-06] MEDS: ENOXAPARIN 40 MG/0.4 ML SYRINGE SQ SCH (08:23)
[2017-07-06] MEDS: AZITHROMYCIN 500 MG TAB PO SCH (08:23)
[2017-07-06] MEDS: LORATADINE 10 MG TAB PO SCH (08:23)
[2017-07-06] MEDS: CHOLECALCIFEROL 1,000 UNIT TAB PO SCH (08:23)
[2017-07-06] MEDS: PRIMIDONE 250 MG TAB PO SCH ×2 (08:23→20:22)
[2017-07-06] MEDS: ESCITALOPRAM 10 MG TAB PO SCH (08:23)
[2017-07-06] MEDS: ASPIRIN 325 MG TAB PO SCH ×2 (08:23→20:21)
[2017-07-06] MEDS: PROPRANOLOL 20 MG TAB PO SCH ×2 (08:23→20:22)
[2017-07-06] MEDS: DOCUSATE 100 MG CAP PO SCH ×2 (08:24→20:21)
[2017-07-06 09:06] LABS: Basophils # (A) 0.1 k/uL (0-0.2); Basophils % (A) 1 %; CH 29.6; CHCM 32.6; Eosinophils # (A) 0.5 k/uL (0-0.7); Eosinophils % (A) 4 %; HCT 36.7 % (39.0-53.0); HDW 2.95; Hypochromasia Slight; Luc # (Auto) 0.14; Luc % (Auto) 1; Lymphocytes # (A) 1.1 k/uL (1.0-4.8); Lymphocytes % (A) 11 %; MCH 29.6 pg (25.0-35.0); MCHC 32.6 g/dL (31.0-37.0); MCV 91.1 fL (80.0-100.0); Monocytes # (A) 0.5 k/uL (0-1.0); Monocytes % (A) 5 %; Neutrophils # (A) 8.5 k/uL (1.3-7.7); Neutrophils % (A) 79 %; RBC 4.03 m/uL (4.30-5.90); RDW 12.2 % (11.5-15.5); WBC 10.8 k/uL (3.8-10.6); WBC (Perox) 11.59
[2017-07-06 09:13] LABS: Anion Gap 12 mmol/L; Blood Urea Nitrogen 13 mg/dL (9-20); Calcium 8.4 mg/dL (8.4-10.2); Carbon Dioxide 23 mmol/L (22-30); Chloride 102 mmol/L (98-107); Glucose 77 mg/dL (74-99); Non-African American GFR(MDRD) >60 (>60 ml/min/1.73 sqM); Potassium 4.2 mmol/L (3.5-5.1); Sodium 137 mmol/L (137-145)
--- NOTE | 2017-07-06 10:48 | XR ---
EXAMINATION TYPE: XR chest 1V DATE OF EXAM: 07/06/2017 COMPARISON: 07/03/2017 HISTORY: Cough TECHNIQUE: Single frontal view of the chest is obtained. FINDINGS: Bilateral areas of consolidation largest seen in the right upper lobe. Hilar regions stabl e. Chronic rib deformities and diffuse osteopenia noted. Cardiomegaly stable. Tiny right-sided pleural effusion suspected. IMPRESSION: 1. Stable x-ray demonstrating bilateral infiltrate differential includes pneumonia or pulmonary edema .
[2017-07-06] MEDS: MEROPENEM 1 GM in SODIUM CHLORIDE 0.9% 100 ML IVPB SCH (14:48)
[2017-07-06] MEDS ORDERED: IV VANCOMYCIN PER PHARMACY 1 EACH MISC MISCELLANE PRN (17:53)
--- NOTE | 2017-07-06 17:53 | P.CNPUL ---
History of Present Illness Consult date: 07/06/17 Reason for consult: pneumonia History of present illness: 59-year-old male patient with known history of cerebral palsy, with significant impairment in cognitive functions, quite debilitated and bedridden, comes into the hospital on 07/02/2017 because of fever. The patient was having temperatures on and off and and he was having increased cough and chest congestion and sweats. He was quite clammy. He was having tremors. He is known to have movement disorder with chronic tremors for which she was started on primidone. No reported aspiration although this is a significant concern nontender the patient has significant neurologic impairment related to his cerebral palsy. He was arousable. No lethargy. No abdominal distention. No nausea. No vomiting. White cell count at admission was at 14.8. His urinalysis also showed 4 WBCs with no obvious bacteria. Rest of the blood work including the renal function and electrodes are all within normal limits. The patient's chest x-ray showed an extensive right lung pneumonia for which she was started on a combination of Rocephin and Zithromax. Over the past few days the patient had a follow-up chest x-ray on 07/03/2017 and then another x-ray on 07/06/2017 and all of this chest x-ray showing a stable bilateral infiltrates more so on the right side with extensive consolidation in the right upper lobe. Based on this, the antibiotic that switched to IV Merrem. Rocephin and Zithromax was discontinued. He is currently on oxygen at 3 L/m nasal cannula and the pulse ox is around 95%. A swallow evaluation has not been done. His been taken soft mechanical mashed diet. His been also laying down comfortably. No seizure activity has been noted. On and off coughing. Cultures of been all negative thus far. Review of Systems 12 point review of systems cannot be done for the reasons mentioned above. Please refer to my H&P for further details. The patient was still having fever till yesterday and the less fevers episode was yesterday at 2100 with temperature was 101.4. ROS unobtainable: due to mental status Past Medical History Past Medical History: Prostate Disorder Additional Past Medical History / Comment(s): Cerebral palsy, parkinsonian features, BPH, hypertension, osteoarthritis, acid reflux History of Any Multi-Drug Resistant Organisms: MRSA Date of last positivie culture/infection: 10/01/16 MDRO Source:: URINE Past Surgical History: Joint Replacement, Orthopedic Surgery, Prostate Surgery Additional Past Surgical History / Comment(s): 01/18/16 Total R hip arthroplasty. Other surgeries: LT HIP REPLACEMENT, TURP, hand tendon surg. Past Anesthesia/Blood Transfusion Reactions: No Reported Reaction Past Psychological History: Depression Additional Psychological History / Comment(s): SUICIDE ATTEMPT OCTOBER 2013. Pt resides at [facility]. He is assisted into a wheelchair. He needs assistance with ADL's. Smoking Status: Never smoker Past Alcohol Use History: None Reported Past Drug Use History: None Reported - Past Family History Mother Family Medical History: No Reported History Additional Family Medical History / Comment(s): Mother is healthy and is 91 yrs old. Father Family Medical History: Myocardial Infarction (MA) Additional Family Medical History / Comment(s): Father at age 59. He had several MA's. Medications and Allergies Home Medications Medication Instructions Recorded Confirmed Type Aspirin 325 mg PO BID 09/18/16 07/02/17 History Cholecalciferol [Vitamin D3] 1,000 unit PO DAILY@0900 09/18/16 07/02/17 History Docusate [Colace] 100 mg PO BID 09/18/16 07/02/17 History Escitalopram [Lexapro] 10 mg PO DAILY@0900 09/18/16 07/02/17 History Loratadine [Claritin] 10 mg PO DAILY@0900 09/18/16 07/02/17 History Menthol/Zinc Oxide [Calmoseptine 1 applic TOPICAL Q12H 09/18/16 07/02/17 History Ointment] Polyethylene Glycol 3350 [Miralax] 17 gm PO DAILY PRN 09/18/16 07/02/17 History Primidone [Mysoline] 250 mg PO DAILY@0900 09/18/16 07/02/17 History Propranolol [Inderal] 20 mg PO BID@0900,1700 09/18/16 07/02/17 History Tamsulosin HCl [Flomax] 0.8 mg PO HS@2100 09/18/16 07/02/17 History clonazePAM [Clonazepam] 1 mg PO TID@0900,1300,2100 09/18/16 07/02/17 History Escitalopram [Lexapro] 5 mg PO DAILY@0900 07/02/17 07/02/17 History Melatonin 10 mg PO HS@2100 07/02/17 07/02/17 History Allergies Allergy/AdvReac Type Severity Reaction Status Date / Time No Known Allergies Allergy Verified 07/02/17 07:34 Physical Exam Vitals: Vital Signs Temp Pulse Pulse Resp BP BP Pulse Ox 07/06/17 16:00 80 77 16 07/06/17 15:31 95 07/06/17 15:00 98.4 F 77 16 125/57 95 07/06/17 08:00 80 70 16 07/06/17 07:00 98.7 F 70 16 122/74 95 07/05/17 23:00 98.9 F 66 16 141/70 95 07/05/17 22:45 98.8 F 07/05/17 21:20 101.4 F H 85 26 H 128/84 95 Intake and Output 07/06/17 07/06/17 07/06/17 06:59 14:59 22:59 Intake Total 250 Balance 250 Intake: Oral 250 Other: Voiding Method Diaper Diaper Incontinent Incontinent # Voids 1 2 # Bowel Movements 1 Weight 56.245 kg 56.245 kg Patient Weight 07/07/17 06:59 Weight 56.245 kg Gen. appearance the patient is calm and comfortable likely distress. He has tremors and occasional jerky movements. These are movement disorder of any seizure activity. There tremors are rather generalized.Head exam was generally normal. There was no scleral icterus or corneal arcus. Mucous membranes were moist. Neck is supple and there is no JVDs no goiter or neck masses. Lungs sounds are diminished bilaterally along with crackles in the mid and lower lung ruiz bilaterally more so on the right.Cardiac exam revealed the PMI to be normally situated and sized. The rhythm was regular and no extrasystoles were noted during several minutes of auscultation. The first and second heart sounds were normal and physiologic splitting of the second heart sound was noted. There were no murmurs, rubs, clicks, or gallops.Abdominal exam revealed normal bowel sounds. The abdomen was soft, non-tender, and without masses, organomegaly , or appreciable enlargement of the abdominal aorta.Examination of the extremities revealed easily palpable radial, femoral and pedal pulses. There was no cyanosis, clubbing or edema. Results - Laboratory Findings CBC and BMP: 07/06/17 08:19 07/06/17 08:19 Abnormal lab findings: Abnormal Labs 07/02/17 07/02/17 07/02/17 04:15 04:15 15:40 WBC 14.8 H RBC 4.23 L Hgb 12.6 L Hct 38.8 L Neutrophils # 12.9 H Lymphocytes # 0.8 L BUN 21 H Creatinine Glucose 143 H Alkaline Phosphatase 192 H Total Protein Albumin Urine Protein 1+ H Urine Blood Trace H Urine RBC 24 H Urine Mucus Rare H 07/03/17 07/04/17 07/04/17 08:33 08:27 08:27 WBC 15.1 H 11.6 H RBC 3.84 L 3.80 L Hgb 11.6 L 11.4 L Hct 35.7 L 35.0 L Neutrophils # 12.8 H 9.2 H Lymphocytes # BUN Creatinine 0.65 L Glucose Alkaline Phosphatase Total Protein Albumin Urine Protein Urine Blood Urine RBC Urine Mucus 07/05/17 07/05/17 07/06/17 21:47 21:47 08:19 WBC 10.8 H RBC 3.90 L 4.03 L Hgb 11.6 L 12.0 L Hct 36.4 L 36.7 L Neutrophils # 8.5 H Lymphocytes # BUN Creatinine 0.60 L Glucose Alkaline Phosphatase 148 H Total Protein 6.1 L Albumin 2.9 L Urine Protein Urine Blood Urine RBC Urine Mucus 07/06/17 08:19 WBC RBC Hgb Hct Neutrophils # Lymphocytes # BUN Creatinine 0.63 L Glucose Alkaline Phosphatase Total Protein Albumin Urine Protein Urine Blood Urine RBC Urine Mucus - Diagnostic Findings Chest x-ray: image reviewed Assessment and Plan Plan: Assessment 1 bilateral pneumonia, quite extensive on the right with extensive consolidation of the right upper lobe. Rule out aspiration pneumonia. Rule out senior care acquired pneumonia with potential gram-negative and even the possibility of Sheyla severe days. The patient has not responded to a combination of Rocephin and Zithromax. Chest x-ray remains unchanged. He was switched to Merrem. 2 hypoxic respiratory failure, acute secondary to above 3 suspected aspiration 4 cerebral palsy with significant impairment of cognitive function and the patient has chronic parkinsonian movement disorder with occasional jerks and tremors 5 BPH 6 osteoarthritis involving multiple joints 7 hypertension 8 acid reflux Plan Agree on switching this patient IV Merrem which is an excellent choice. May discontinue the Zithromax. Add vancomycin to give this patient adequate gram- negative and staphylococcal coverage. Repeat chest x-ray with the next 24-48 hours. Aspiration precautions. Swallow evaluation. Outpatient medication is to be continued. We'll continue to follow.
[2017-07-06] MEDS: ACETAMINOPHEN TAB 325 MG TAB PO PRN (17:59)
[2017-07-06] MEDS: VANCOMYCIN 1,000 MG in SODIUM CHLORIDE 0.9% 250 ML IVPB SCH (19:00)
--- NOTE | 2017-07-06 19:27 | PN ---
DATE OF SERVICE: 07/06/2017 PRESENTING COMPLAINT: Pneumonia. INTERVAL HISTORY: This is a patient with pneumonia, slow to respond, having spikes of fever. Pulmonary was consulted. Patient did tolerate his breakfast well. He also has myoclonic jerks, better controlled today; per patient, this is his baseline. Review of systems done for constitutional, cardiovascular, GI, pulmonary; relevant findings as above. Current medications are reviewed and include Zithromax. On examination, T-max 101.4 last night, currently 98.7. Pulse 80, respiration 16 , blood pressure 120/74, pulse ox 95% on 3 L. GENERAL APPEARANCE: Lying in bed. Awake. EYES: Pupils equal. Conjunctivae normal. NECK: JVD not raised. Mass not palpable. RESPIRATORY: Effort normal. LUNGS: Decreased breath sounds. CARDIOVASCULAR: First and second sounds normal. No edema. ABDOMEN: Soft, non-tender. Liver and spleen not palpable. PSYCHIATRY: Alert and oriented x3. Answers questions. Anxious-appearing. NEUROLOGICAL: Myoclonic jerks. INVESTIGATIONS: White count 10.8, potassium 4.2. Chest x-ray reviewed by me. It shows diffuse infiltrate. ASSESSMENT: 1. Multi-lobar pneumonia with radiological worsening. 2. Cerebral palsy with possible associated myoclonic jerks. 3. Gastroesophageal reflux disease. 4. Essential hypertension. 5. Primary osteoarthritis in multiple joints. 6. Benign prostatic hypertrophy. PLAN: Will go ahead and add meropenem for now and follow. MTDD
[2017-07-06] MEDS: TAMSULOSIN 0.4 MG CAP.ER.24H PO SCH (20:21)
[2017-07-06] MEDS: MELATONIN 5 MG TABLET PO SCH (20:22)
[2017-07-06] MEDS: LORazepam 1 MG TAB PO SCH (20:26)
[2017-07-07] MEDS: MEROPENEM 1 GM in SODIUM CHLORIDE 0.9% 100 ML IVPB SCH ×3 (01:02→15:02)
[2017-07-07] MEDS: VANCOMYCIN 1,000 MG in SODIUM CHLORIDE 0.9% 250 ML IVPB SCH ×2 (06:31→17:05)
[2017-07-07 08:53] LABS: Basophils # (A) 0.1 k/uL (0-0.2); Basophils % (A) 1 %; CH 30.3; CHCM 32.8; Eosinophils # (A) 0.5 k/uL (0-0.7); Eosinophils % (A) 4 %; HCT 36.5 % (39.0-53.0); HDW 2.83; HGB 11.9 gm/dL (13.0-17.5); Luc # (Auto) 0.09; Luc % (Auto) 1; Lymphocytes # (A) 1.1 k/uL (1.0-4.8); Lymphocytes % (A) 10 %; MCH 30.1 pg (25.0-35.0); MCHC 32.5 g/dL (31.0-37.0); MCV 92.6 fL (80.0-100.0); Monocytes # (A) 0.5 k/uL (0-1.0); Monocytes % (A) 4 %; Neutrophils # (A) 8.5 k/uL (1.3-7.7); Neutrophils % (A) 80 %; RBC 3.94 m/uL (4.30-5.90); WBC 10.7 k/uL (3.8-10.6); WBC (Perox) 11.14
[2017-07-07] MEDS: PRIMIDONE 250 MG TAB PO SCH ×2 (09:16→22:14)
[2017-07-07] MEDS: PROPRANOLOL 20 MG TAB PO SCH ×2 (09:16→22:13)
[2017-07-07] MEDS: ENOXAPARIN 40 MG/0.4 ML SYRINGE SQ SCH (09:16)
[2017-07-07] MEDS: ESCITALOPRAM 10 MG TAB PO SCH (09:16)
[2017-07-07] MEDS: ASPIRIN 325 MG TAB PO SCH ×2 (09:17→22:13)
[2017-07-07] MEDS: CHOLECALCIFEROL 1,000 UNIT TAB PO SCH (09:17)
[2017-07-07] MEDS: DOCUSATE 100 MG CAP PO SCH ×2 (09:17→22:13)
[2017-07-07] MEDS: POLYETHYLENE GLYCOL 3350 17 GM POWD.PACK PO SCH (09:26)
[2017-07-07] MEDS: LORATADINE 10 MG TAB PO SCH (09:26)
--- NOTE | 2017-07-07 14:35 | P.PN ---
Subjective 59-year-old male patient with known history of cerebral palsy, with significant impairment in cognitive functions, quite debilitated and bedridden, comes into the hospital on 07/02/2017 because of fever. The patient was having temperatures on and off and and he was having increased cough and chest congestion and sweats. He was quite clammy. He was having tremors. He is known to have movement disorder with chronic tremors for which she was started on primidone. No reported aspiration although this is a significant concern nontender the patient has significant neurologic impairment related to his cerebral palsy. He was arousable. No lethargy. No abdominal distention. No nausea. No vomiting. White cell count at admission was at 14.8. His urinalysis also showed 4 WBCs with no obvious bacteria. Rest of the blood work including the renal function and electrodes are all within normal limits. The patient's chest x-ray showed an extensive right lung pneumonia for which she was started on a combination of Rocephin and Zithromax. Over the past few days the patient had a follow-up chest x-ray on 07/03/2017 and then another x-ray on 07/06/2017 and all of this chest x-ray showing a stable bilateral infiltrates more so on the right side with extensive consolidation in the right upper lobe. Based on this, the antibiotic that switched to IV Merrem. Rocephin and Zithromax was discontinued. He is currently on oxygen at 3 L/m nasal cannula and the pulse ox is around 95%. A swallow evaluation has not been done. His been taken soft mechanical mashed diet. His been also laying down comfortably. No seizure activity has been noted. On and off coughing. Cultures of been all negative thus far. The patient is seen again today 07/07/2017 in follow-up on the regular medical floor. He is more awake and alert today as compared to yesterday. He is answering yes no questions appropriately. He is tolerating a soft diet. He has not been choking or coughing as he is fed with assistance. He is maintaining good O2 saturations in the 90s on 3 L/m per nasal cannula. He is afebrile. Hemodynamically stable. He has been treated for his suspected aspiration pneumonia with both vancomycin and meropenem. Objective - Vital Signs Vital signs: Vital Signs Temp 98.7 F 07/07/17 07:00 Pulse 80 07/07/17 08:00 Resp 18 07/07/17 08:00 BP 125/68 07/07/17 07:00 Pulse Ox 92 L 07/07/17 07:00 Intake & Output 07/06/17 07/07/17 07/07/17 18:59 06:59 18:59 Intake Total 250 Output Total 400 Balance 250 -400 Weight 56.245 kg 56.245 kg Intake: Oral 250 Output: Urine 400 Other: Voiding Method Diaper Diaper Diaper Incontinent Incontinent Incontinent # Voids 2 0 0 # Bowel Movements 0 - Exam Gen. appearance the patient is calm and comfortable likely distress. He has tremors and occasional jerky movements. These are movement disorder of any seizure activity. There tremors are rather generalized.Head exam was generally normal. There was no scleral icterus or corneal arcus. Mucous membranes were moist. Neck is supple and there is no JVDs no goiter or neck masses. Lungs sounds are diminished bilaterally along with crackles in the mid and lower lung ruiz bilaterally more so on the right.Cardiac exam revealed the PMI to be normally situated and sized. The rhythm was regular and no extrasystoles were noted during several minutes of auscultation. The first and second heart sounds were normal and physiologic splitting of the second heart sound was noted. There were no murmurs, rubs, clicks, or gallops.Abdominal exam revealed normal bowel sounds. The abdomen was soft, non-tender, and without masses, organomegaly , or appreciable enlargement of the abdominal aorta.Examination of the extremities revealed easily palpable radial, femoral and pedal pulses. There was no cyanosis, clubbing or edema. - Labs CBC & Chem 7: 07/07/17 08:13 07/06/17 08:19 Labs: Abnormal Lab Results - Last 24 Hours (Table) 07/07/17 Range/Units 08:13 WBC 10.7 H (3.8-10.6) k/uL RBC 3.94 L (4.30-5.90) m/uL Hgb 11.9 L (13.0-17.5) gm/dL Hct 36.5 L (39.0-53.0) % Neutrophils # 8.5 H (1.3-7.7) k/uL Microbiology - Last 24 Hours (Table) 07/02/17 04:15 Blood Culture - Preliminary Blood No Growth after 120 hours Assessment and Plan Plan: Assessment 1 bilateral pneumonia, quite extensive on the right with extensive consolidation of the right upper lobe. Suspect aspiration pneumonia. Suspect [facility] acquired pneumonia with potential gram-negative. The patient has not responded to a combination of Rocephin and Zithromax. Chest x-ray remains unchanged. He was switched to Merrem. 2 hypoxic respiratory failure, acute secondary to above 3 suspected aspiration 4 cerebral palsy with significant impairment of cognitive function and the patient has chronic parkinsonian movement disorder with occasional jerks and tremors 5 BPH 6 osteoarthritis involving multiple joints 7 hypertension 8 acid reflux Plan: The patient was seen and evaluated by Dr. Hare. The patient does seem improved clinically on vancomycin and Merrem. We will repeat a chest x-ray in the a.m. We'll continue with his current medications. We'll continue to follow.
[2017-07-07] MEDS: ACETAMINOPHEN TAB 325 MG TAB PO PRN (22:11)
[2017-07-07] MEDS: MELATONIN 5 MG TABLET PO SCH (22:13)
[2017-07-07] MEDS: TAMSULOSIN 0.4 MG CAP.ER.24H PO SCH (22:13)
[2017-07-07] MEDS: LORazepam 1 MG TAB PO SCH (22:17)
[2017-07-08] MEDS: MEROPENEM 1 GM in SODIUM CHLORIDE 0.9% 100 ML IVPB SCH ×3 (00:40→15:08)
[2017-07-08] MEDS ORDERED: VANCOMYCIN TROUGH DUE 1 EACH MISC MISCELLANE ONE (05:00)
[2017-07-08] MEDS: VANCOMYCIN 1,000 MG in SODIUM CHLORIDE 0.9% 250 ML IVPB SCH (06:16)
[2017-07-08] MEDS: ENOXAPARIN 40 MG/0.4 ML SYRINGE SQ SCH (09:21)
[2017-07-08] MEDS: CHOLECALCIFEROL 1,000 UNIT TAB PO SCH (09:21)
[2017-07-08] MEDS: ASPIRIN 325 MG TAB PO SCH ×2 (09:21→21:33)
[2017-07-08] MEDS: DOCUSATE 100 MG CAP PO SCH ×2 (09:21→21:33)
[2017-07-08] MEDS: ESCITALOPRAM 10 MG TAB PO SCH (09:22)
[2017-07-08] MEDS: LORATADINE 10 MG TAB PO SCH (09:22)
[2017-07-08] MEDS: ACETAMINOPHEN TAB 325 MG TAB PO PRN ×2 (09:22→15:51)
[2017-07-08] MEDS: POLYETHYLENE GLYCOL 3350 17 GM POWD.PACK PO SCH (09:23)
[2017-07-08] MEDS: PRIMIDONE 250 MG TAB PO SCH ×2 (09:24→21:33)
[2017-07-08] MEDS: PROPRANOLOL 20 MG TAB PO SCH ×2 (09:24→21:33)
--- NOTE | 2017-07-08 10:44 | XR ---
EXAMINATION TYPE: XR chest 1V portable DATE OF EXAM: 07/08/2017 Comparison: 07/06/2017 Clinical History: 61-year-old male follow up pneumonia Findings: Heart remains borderline enlarged. Diffuse interstitial and patchy and confluent airspace opacities p articularly on the right. However, there is improving aeration with less confluent airspace disease o n the right. Multiple old healed bilateral rib fracture deformities. No significant pleural effusion. Impression: Multifocal pneumonia. Particularly on the right, airspace disease is less confluent suggesting some i mprovement.
--- NOTE | 2017-07-08 14:31 | P.PN ---
Subjective 59-year-old male patient with known history of cerebral palsy, with significant impairment in cognitive functions, quite debilitated and bedridden, comes into the hospital on 07/02/2017 because of fever. The patient was having temperatures on and off and and he was having increased cough and chest congestion and sweats. He was quite clammy. He was having tremors. He is known to have movement disorder with chronic tremors for which she was started on primidone. No reported aspiration although this is a significant concern nontender the patient has significant neurologic impairment related to his cerebral palsy. He was arousable. No lethargy. No abdominal distention. No nausea. No vomiting. White cell count at admission was at 14.8. His urinalysis also showed 4 WBCs with no obvious bacteria. Rest of the blood work including the renal function and electrodes are all within normal limits. The patient's chest x-ray showed an extensive right lung pneumonia for which she was started on a combination of Rocephin and Zithromax. Over the past few days the patient had a follow-up chest x-ray on 07/03/2017 and then another x-ray on 07/06/2017 and all of this chest x-ray showing a stable bilateral infiltrates more so on the right side with extensive consolidation in the right upper lobe. Based on this, the antibiotic that switched to IV Merrem. Rocephin and Zithromax was discontinued. He is currently on oxygen at 3 L/m nasal cannula and the pulse ox is around 95%. A swallow evaluation has not been done. His been taken soft mechanical mashed diet. His been also laying down comfortably. No seizure activity has been noted. On and off coughing. Cultures of been all negative thus far. The patient is seen again today 07/07/2017 in follow-up on the regular medical floor. He is more awake and alert today as compared to yesterday. He is answering yes no questions appropriately. He is tolerating a soft diet. He has not been choking or coughing as he is fed with assistance. He is maintaining good O2 saturations in the 90s on 3 L/m per nasal cannula. He is afebrile. Hemodynamically stable. He has been treated for his suspected aspiration pneumonia with both vancomycin and meropenem. The patient is seen again today 07/08/2017 in follow-up on the regular medical floor. He is currently resting fairly comfortably in bed. He is awake and alert in no acute distress. His chest x-ray continues to show multifocal pneumonia with some improvement more so on the right. He continues to maintain good O2 saturations in the 90s on 3 L/m per nasal cannula. His been afebrile. Hemodynamically stable. White count 10.7. He remains on vancomycin and meropenem. Objective - Vital Signs Vital signs: Vital Signs Temp 97.6 F 07/08/17 07:00 Pulse 61 07/08/17 07:00 Resp 18 07/08/17 07:00 BP 140/70 07/08/17 07:00 Pulse Ox 93 L 07/08/17 07:46 Intake & Output 07/07/17 07/08/17 07/08/17 18:59 06:59 18:59 Intake Total 300 Output Total 800 3 900 Balance -800 297 -900 Weight 56.245 kg 57 kg Intake: Oral 300 Output: Urine 800 3 900 Straight 900 Other: Voiding Method Diaper Diaper Incontinent Incontinent # Voids 3 1 # Bowel Movements 1 - Exam Gen. appearance the patient is calm and comfortable likely distress. He has tremors and occasional jerky movements. These are movement disorder of any seizure activity. There tremors are rather generalized.Head exam was generally normal. There was no scleral icterus or corneal arcus. Mucous membranes were moist. Neck is supple and there is no JVDs no goiter or neck masses. Lungs sounds are diminished bilaterally along with crackles in the mid and lower lung ruiz bilaterally more so on the right.Cardiac exam revealed the PMI to be normally situated and sized. The rhythm was regular and no extrasystoles were noted during several minutes of auscultation. The first and second heart sounds were normal and physiologic splitting of the second heart sound was noted. There were no murmurs, rubs, clicks, or gallops.Abdominal exam revealed normal bowel sounds. The abdomen was soft, non-tender, and without masses, organomegaly , or appreciable enlargement of the abdominal aorta.Examination of the extremities revealed easily palpable radial, femoral and pedal pulses. There was no cyanosis, clubbing or edema. - Labs CBC & Chem 7: 07/07/17 08:13 07/06/17 08:19 Labs: Microbiology - Last 24 Hours (Table) 07/02/17 04:15 Blood Culture - Final Blood No Growth after 144 hours Assessment and Plan Plan: Assessment 1 bilateral pneumonia, quite extensive on the right with extensive consolidation of the right upper lobe. Suspect aspiration pneumonia. Suspect retirement acquired pneumonia with potential gram-negative. The patient has not responded to a combination of Rocephin and Zithromax. He was switched to vancomycin and Merrem. Chest x-ray showing improvement more so on the right. 2 acute hypoxic respiratory failure, secondary to above 3 suspected aspiration 4 cerebral palsy with significant impairment of cognitive function and the patient has chronic parkinsonian movement disorder with occasional jerks and tremors 5 BPH 6 osteoarthritis involving multiple joints 7 hypertension 8 acid reflux Plan: The patient was seen and evaluated by Dr. Hare. The patient does seem improved clinically on vancomycin and Merrem. We'll continue with his current medications. We'll continue to follow.
[2017-07-08] MEDS: VANCOMYCIN 1,250 MG in SODIUM CHLORIDE 0.9% 250 ML IVPB SCH (17:13)
[2017-07-08] MEDS: TAMSULOSIN 0.4 MG CAP.ER.24H PO SCH (21:32)
[2017-07-08] MEDS: MELATONIN 5 MG TABLET PO SCH (21:33)
[2017-07-08] MEDS: traMADol 50 MG TAB PO PRN (21:58)
[2017-07-08] MEDS: LORazepam 1 MG TAB PO SCH (21:58)
[2017-07-09] MEDS: MEROPENEM 1 GM in SODIUM CHLORIDE 0.9% 100 ML IVPB SCH ×4 (00:40→23:43)
[2017-07-09] MEDS: VANCOMYCIN 1,250 MG in SODIUM CHLORIDE 0.9% 250 ML IVPB SCH ×2 (06:26→17:44)
--- NOTE | 2017-07-09 07:21 | PN ---
DATE OF SERVICE: 07/07/17 PRESENTING COMPLAINT: Pneumonia. INTERVAL HISTORY: This patient was seen by me on 07/07/17. The patient doing a bit better after switched to Meropenem, eating better. Lying in bed. Wants to know when he can go home. Review of systems was done for constitutional, cardiovascular, GI, pulmonary, neurological. Relevant findings as above. Current medications are reviewed that include: IV Meropenem. On examination, temperature 98.7, pulse 86. Respirations 18. Blood pressure 125/68. Pulse ox 92% on 3 L. General appearance laying in bed, awake, more comfortable. Eyes: Pupils equal. Conjunctivae normal. Neck: JVD not raised. Mass not palpable. Respiratory effort normal. Lungs diminished breath sounds. Cardiovascular: First and second sounds normal. No edema. Abdomen soft, nontender. Liver and spleen not palpable. Psychiatric: Alert and oriented times three. Mood and affect normal. Less anxious appearing. Neurological: Myoclonic jerks currently improved. Investigations: White count 10.7. ASSESSMENT: 1. Multilobar pneumonia with radiological worsening, has now actually improved with the patient being on Meropenem given that fevers have come down, the patient looks more restful. 2. Cerebral palsy with possibly associated myoclonic jerks. 3. Gastroesophageal reflux disease. 4. Essential hypertension. 5. Primary osteoarthritis in multiple joints. 6. Benign prostatic hypertrophy. PLAN: Discussed with Dr. Hare. The patient seems to be responding well to Meropenem. Continue the same. When the patient is afebrile for 24 hours, the patient probably can then be discharged. Repeat chest x-ray will be done tomorrow. [facility]
[2017-07-09] MEDS: POLYETHYLENE GLYCOL 3350 17 GM POWD.PACK PO SCH (10:15)
[2017-07-09] MEDS: ASPIRIN 325 MG TAB PO SCH ×2 (10:16→20:44)
[2017-07-09] MEDS: ESCITALOPRAM 10 MG TAB PO SCH (10:16)
[2017-07-09] MEDS: ENOXAPARIN 40 MG/0.4 ML SYRINGE SQ SCH (10:16)
[2017-07-09] MEDS: PROPRANOLOL 20 MG TAB PO SCH ×2 (10:16→20:44)
[2017-07-09] MEDS: PRIMIDONE 250 MG TAB PO SCH ×2 (10:16→20:44)
[2017-07-09] MEDS: LORATADINE 10 MG TAB PO SCH (10:17)
[2017-07-09] MEDS: DOCUSATE 100 MG CAP PO SCH ×2 (10:17→20:44)
[2017-07-09] MEDS: CHOLECALCIFEROL 1,000 UNIT TAB PO SCH (10:17)
--- NOTE | 2017-07-09 11:17 | PN ---
DATE OF SERVICE: 07/08/2017 PRESENTING COMPLAINT: Pneumonia. INTERVAL HISTORY: This patient was admitted with pneumonia, slow to respond and she was switched over to meropenem to which she is doing better. No further fever. Eating much better. The patient has myoclonic jerks which are chronic, better controlled. Laying in bed. REVIEW OF SYSTEMS: CONSTITUTIONAL: None. CARDIOVASCULAR: None. : None. PULMONARY: Findings as above. GI: None. CURRENT MEDICATIONS: Reviewed and include IV meropenem. On examination, afebrile, pulse 51, respirations 18, blood pressure 140/70, pulse ox 98% on 3 liters. GENERAL APPEARANCE: Laying in bed, awake, comfortable. EYES: Pupils equal. Conjunctivae normal. NECK: JVP not raised. Mass not palpable. RESPIRATORY EFFORT: Normal. LUNGS: Decreased breath sounds. CARDIOVASCULAR: First and second sounds normal. No edema. ABDOMEN: Soft, nontender. Liver and spleen not palpable. PSYCHIATRY: Awake, answers questions. NEUROLOGIC: Myoclonic jerks, improved. Patient is at her baseline dysarthria. INVESTIGATIONS: No blood work from today. Vancomycin 9.6. ASSESSMENT: 1. Multilobar pneumonia with clinical improvement, afebrile after patient started on meropenem, possible aspiration pneumonia. 2. Cerebral palsy with associated what may be possible myoclonic jerks. Patient has been at her baseline. 3. Gastroesophageal reflux disease. 4. Essential hypertension. 5. Primary osteoarthritis in multiple joints. 6. Benign prostatic hypertrophy. PLAN: Continue with current antibiotics. Follow with pulmonary. Reviewed patient's chest x-ray which actually looks much better. Patient also clinically improving. Hopefully the patient will be switched to oral antibiotics now. MTDD
--- NOTE | 2017-07-09 13:48 | P.PN ---
Subjective 59-year-old male patient with known history of cerebral palsy, with significant impairment in cognitive functions, quite debilitated and bedridden, comes into the hospital on 07/02/2017 because of fever. The patient was having temperatures on and off and and he was having increased cough and chest congestion and sweats. He was quite clammy. He was having tremors. He is known to have movement disorder with chronic tremors for which she was started on primidone. No reported aspiration although this is a significant concern nontender the patient has significant neurologic impairment related to his cerebral palsy. He was arousable. No lethargy. No abdominal distention. No nausea. No vomiting. White cell count at admission was at 14.8. His urinalysis also showed 4 WBCs with no obvious bacteria. Rest of the blood work including the renal function and electrodes are all within normal limits. The patient's chest x-ray showed an extensive right lung pneumonia for which she was started on a combination of Rocephin and Zithromax. Over the past few days the patient had a follow-up chest x-ray on 07/03/2017 and then another x-ray on 07/06/2017 and all of this chest x-ray showing a stable bilateral infiltrates more so on the right side with extensive consolidation in the right upper lobe. Based on this, the antibiotic that switched to IV Merrem. Rocephin and Zithromax was discontinued. He is currently on oxygen at 3 L/m nasal cannula and the pulse ox is around 95%. A swallow evaluation has not been done. His been taken soft mechanical mashed diet. His been also laying down comfortably. No seizure activity has been noted. On and off coughing. Cultures of been all negative thus far. The patient is seen again today 07/07/2017 in follow-up on the regular medical floor. He is more awake and alert today as compared to yesterday. He is answering yes no questions appropriately. He is tolerating a soft diet. He has not been choking or coughing as he is fed with assistance. He is maintaining good O2 saturations in the 90s on 3 L/m per nasal cannula. He is afebrile. Hemodynamically stable. He has been treated for his suspected aspiration pneumonia with both vancomycin and meropenem. The patient is seen again today 07/08/2017 in follow-up on the regular medical floor. He is currently resting fairly comfortably in bed. He is awake and alert in no acute distress. His chest x-ray continues to show multifocal pneumonia with some improvement more so on the right. He continues to maintain good O2 saturations in the 90s on 3 L/m per nasal cannula. His been afebrile. Hemodynamically stable. White count 10.7. He remains on vancomycin and meropenem. On 07/09/2017 the patient is being seen in follow-up. Patient is doing well. Active awake and interactive. As mentioned earlier he suffers from cerebral palsy. The chest x-ray from yesterday showed multifocal pneumonia particularly on the right however the airspace disease on the right was less confluent suggestive of some improvement. My suggestion is to repeat a follow-up chest x- ray in a.m. Otherwise, the patient is doing well. Hemodynamically stable. No fever. Eating with assistance. No leukocytosis. Renal function is stable. Electrolytes are all stable. Objective - Vital Signs Vital signs: Vital Signs Temp 96.6 F L 07/09/17 07:00 Pulse 66 07/09/17 07:00 Resp 18 07/09/17 07:00 BP 115/59 07/09/17 07:00 Pulse Ox 99 07/09/17 07:00 Intake & Output 07/08/17 07/09/17 07/09/17 18:59 06:59 18:59 Intake Total 590 450 118 Output Total 903 Balance -313 450 118 Weight 57 kg 55 kg Intake: Oral 590 450 118 Output: Urine 903 Straight 900 Other: Voiding Method Diaper Diaper Incontinent Incontinent # Voids 0 2 # Bowel Movements 0 0 - Exam Gen. appearance the patient is calm and comfortable likely distress. He has tremors and occasional jerky movements. These are movement disorder of any seizure activity. There tremors are rather generalized.Head exam was generally normal. There was no scleral icterus or corneal arcus. Mucous membranes were moist. Neck is supple and there is no JVDs no goiter or neck masses. Lungs sounds are diminished bilaterally along with crackles in the mid and lower lung ruiz bilaterally more so on the right.Cardiac exam revealed the PMI to be normally situated and sized. The rhythm was regular and no extrasystoles were noted during several minutes of auscultation. The first and second heart sounds were normal and physiologic splitting of the second heart sound was noted. There were no murmurs, rubs, clicks, or gallops.Abdominal exam revealed normal bowel sounds. The abdomen was soft, non-tender, and without masses, organomegaly , or appreciable enlargement of the abdominal aorta.Examination of the extremities revealed easily palpable radial, femoral and pedal pulses. There was no cyanosis, clubbing or edema. - Labs CBC & Chem 7: 07/07/17 08:13 07/06/17 08:19 Assessment and Plan Plan: Assessment 1 bilateral pneumonia, quite extensive on the right with extensive consolidation of the right upper lobe. Suspect aspiration pneumonia. Suspect [facility] acquired pneumonia with potential gram-negative. The patient has not responded to a combination of Rocephin and Zithromax. He was switched to vancomycin and Merrem. Chest x-ray showing improvement more so on the right. On 07/09/2017, the patient continues to improve. No signs of any respiratory distress. His antibiotics have been broadened. The chest x-ray from yesterday was showing some improvement. A follow-up chest x-ray be done for tomorrow. No reported aspiration. 2 acute hypoxic respiratory failure, secondary to above 3 suspected aspiration 4 cerebral palsy with significant impairment of cognitive function and the patient has chronic parkinsonian movement disorder with occasional jerks and tremors 5 BPH 6 osteoarthritis involving multiple joints 7 hypertension 8 acid reflux Plan Continue meropenem and vancomycin. Aspiration precautions. Repeat chest x-ray in the morning. Clinically improving. No signs of septicemia. We'll follow.
[2017-07-09] MEDS: MELATONIN 5 MG TABLET PO SCH (20:44)
[2017-07-09] MEDS: TAMSULOSIN 0.4 MG CAP.ER.24H PO SCH (20:44)
[2017-07-09] MEDS: LORazepam 1 MG TAB PO SCH (20:44)
[2017-07-10] MEDS: VANCOMYCIN 1,250 MG in SODIUM CHLORIDE 0.9% 250 ML IVPB SCH ×2 (05:08→17:00)
--- NOTE | 2017-07-10 07:52 | XR ---
EXAMINATION TYPE: XR chest 1V DATE OF EXAM: 07/10/2017 COMPARISON: Prior chest x-ray 07/08/2017 HISTORY: Pneumonia, cough TECHNIQUE: Single frontal view of the chest is obtained. FINDINGS: Bilateral airspace disease is again noted. Heart size may be accentuated by rotation. No e vident pneumothorax or pleural effusion. IMPRESSION: Findings could represent pneumonia, correlate to exclude congestive heart failure.
[2017-07-10] MEDS: PROPRANOLOL 20 MG TAB PO SCH ×2 (08:03→21:53)
[2017-07-10] MEDS: ASPIRIN 325 MG TAB PO SCH ×2 (08:03→21:54)
[2017-07-10] MEDS: ENOXAPARIN 40 MG/0.4 ML SYRINGE SQ SCH (08:03)
[2017-07-10] MEDS: PRIMIDONE 250 MG TAB PO SCH ×2 (08:03→21:53)
[2017-07-10] MEDS: POLYETHYLENE GLYCOL 3350 17 GM POWD.PACK PO SCH (08:03)
[2017-07-10] MEDS: DOCUSATE 100 MG CAP PO SCH ×2 (08:04→21:54)
[2017-07-10] MEDS: LORATADINE 10 MG TAB PO SCH (08:04)
[2017-07-10] MEDS: CHOLECALCIFEROL 1,000 UNIT TAB PO SCH (08:04)
[2017-07-10] MEDS: ESCITALOPRAM 10 MG TAB PO SCH (08:04)
[2017-07-10] MEDS: MEROPENEM 1 GM in SODIUM CHLORIDE 0.9% 100 ML IVPB SCH ×3 (09:40→23:35)
--- NOTE | 2017-07-10 12:48 | P.PN ---
Subjective 59-year-old male patient with known history of cerebral palsy, with significant impairment in cognitive functions, quite debilitated and bedridden, comes into the hospital on 07/02/2017 because of fever. The patient was having temperatures on and off and and he was having increased cough and chest congestion and sweats. He was quite clammy. He was having tremors. He is known to have movement disorder with chronic tremors for which she was started on primidone. No reported aspiration although this is a significant concern nontender the patient has significant neurologic impairment related to his cerebral palsy. He was arousable. No lethargy. No abdominal distention. No nausea. No vomiting. White cell count at admission was at 14.8. His urinalysis also showed 4 WBCs with no obvious bacteria. Rest of the blood work including the renal function and electrodes are all within normal limits. The patient's chest x-ray showed an extensive right lung pneumonia for which she was started on a combination of Rocephin and Zithromax. Over the past few days the patient had a follow-up chest x-ray on 07/03/2017 and then another x-ray on 07/06/2017 and all of this chest x-ray showing a stable bilateral infiltrates more so on the right side with extensive consolidation in the right upper lobe. Based on this, the antibiotic that switched to IV Merrem. Rocephin and Zithromax was discontinued. He is currently on oxygen at 3 L/m nasal cannula and the pulse ox is around 95%. A swallow evaluation has not been done. His been taken soft mechanical mashed diet. His been also laying down comfortably. No seizure activity has been noted. On and off coughing. Cultures of been all negative thus far. The patient is seen again today 07/07/2017 in follow-up on the regular medical floor. He is more awake and alert today as compared to yesterday. He is answering yes no questions appropriately. He is tolerating a soft diet. He has not been choking or coughing as he is fed with assistance. He is maintaining good O2 saturations in the 90s on 3 L/m per nasal cannula. He is afebrile. Hemodynamically stable. He has been treated for his suspected aspiration pneumonia with both vancomycin and meropenem. The patient is seen again today 07/08/2017 in follow-up on the regular medical floor. He is currently resting fairly comfortably in bed. He is awake and alert in no acute distress. His chest x-ray continues to show multifocal pneumonia with some improvement more so on the right. He continues to maintain good O2 saturations in the 90s on 3 L/m per nasal cannula. His been afebrile. Hemodynamically stable. White count 10.7. He remains on vancomycin and meropenem. On 07/09/2017 the patient is being seen in follow-up. Patient is doing well. Active awake and interactive. As mentioned earlier he suffers from cerebral palsy. The chest x-ray from yesterday showed multifocal pneumonia particularly on the right however the airspace disease on the right was less confluent suggestive of some improvement. My suggestion is to repeat a follow-up chest x- ray in a.m. Otherwise, the patient is doing well. Hemodynamically stable. No fever. Eating with assistance. No leukocytosis. Renal function is stable. Electrolytes are all stable. Patient is seen again today 07/10/2017 and follow-up on the regular medical floor. Continues to be stable from the pulmonary standpoint. He is maintaining O2 saturations in the upper 90s on room air. He's been afebrile. Hemodynamically stable. His chest x-ray however continues to show multifocal pneumonia more so on the right lung. Objective - Vital Signs Vital signs: Vital Signs Temp 98.2 F 07/10/17 07:00 Pulse 80 07/10/17 08:00 Resp 18 07/10/17 08:00 BP 123/66 07/10/17 07:00 Pulse Ox 98 07/10/17 07:00 Intake & Output 07/09/17 07/10/17 07/10/17 18:59 06:59 18:59 Intake Total 686 600 Output Total 3 1250 Balance 683 -650 Weight 55 kg 54.5 kg Intake: IV 500 Vancomycin 1,250 mg In 500 Sodium Chloride 0.9% 250 ml @ 125 mls/hr IVPB 0600 ,1800 [facility] Rx#:[id number] Intake, IV Titration 450 100 Amount Meropenem 1 gm In Sodium 200 100 Chloride 0.9% 100 ml @ 200 mls/hr IVPB Q8HR [facility] Rx#:[id number] Vancomycin 1,250 mg In 250 Sodium Chloride 0.9% 250 ml @ 125 mls/hr IVPB 0600 ,1800 [facility] Rx#:[id number] Oral 236 Output: Urine 3 1250 Straight 1250 Other: Voiding Method Diaper Diaper Diaper Incontinent Incontinent Incontinent # Voids 1 0 # Bowel Movements 0 0 - Exam Gen. appearance the patient is calm and comfortable likely distress. He has tremors and occasional jerky movements. These are movement disorder of any seizure activity. There tremors are rather generalized.Head exam was generally normal. There was no scleral icterus or corneal arcus. Mucous membranes were moist. Neck is supple and there is no JVDs no goiter or neck masses. Lungs sounds are diminished bilaterally along with crackles in the mid and lower lung ruiz bilaterally more so on the right.Cardiac exam revealed the PMI to be normally situated and sized. The rhythm was regular and no extrasystoles were noted during several minutes of auscultation. The first and second heart sounds were normal and physiologic splitting of the second heart sound was noted. There were no murmurs, rubs, clicks, or gallops.Abdominal exam revealed normal bowel sounds. The abdomen was soft, non-tender, and without masses, organomegaly , or appreciable enlargement of the abdominal aorta.Examination of the extremities revealed easily palpable radial, femoral and pedal pulses. There was no cyanosis, clubbing or edema. - Labs CBC & Chem 7: 07/07/17 08:13 07/06/17 08:19 Assessment and Plan Plan: Assessment 1 bilateral pneumonia, quite extensive on the right with extensive consolidation of the right upper lobe. Suspect aspiration pneumonia. Suspect [facility] acquired pneumonia with potential gram-negative. The patient has not responded to a combination of Rocephin and Zithromax. He was switched to vancomycin and Merrem. Chest x-ray continues to show multifocal infiltrates more so on the right. 2 acute hypoxic respiratory failure, secondary to above 3 suspected aspiration 4 cerebral palsy with significant impairment of cognitive function and the patient has chronic parkinsonian movement disorder with occasional jerks and tremors 5 BPH 6 osteoarthritis involving multiple joints 7 hypertension 8 acid reflux Plan: The patient was seen and evaluated by Dr. Donovan. The patient does seem improved clinically on vancomycin and Merrem, however his chest x-ray continues to show multifocal infiltrates more so on the right lung. We'll continue with his current medications. We'll continue to follow.
--- NOTE | 2017-07-10 17:05 | PN ---
DATE OF SERVICE: 07/09/2017 I am covering for Dr. Barnes. This is a 62-year-old gentleman who was admitted with multilobar pneumonia, also had cerebral palsy. The patient had myoclonic jerks also. The patient will be closely monitored. Dr. Hare is following the patient closely. The most recent chest x-ray personally reviewed by me showed significant pneumonia, mostly on the right, some improvement. Past medical history and review of systems could not be taken as the patient is nonverbal at this time. CURRENT MEDICATIONS: Reviewed and include: 1. Tylenol 650 q6h p.r.n. 2. Aspirin 325 mg b.i.d. 3. Vitamin D3 1000 a day. 4. Klonopin 1 mg t.i.d. 5. Colace 100 mg b.i.d. 6. Lovenox 40 mg subcu daily. 7. Lexapro 15 mg p.o. daily. 8. Claritin 10 mg. 9. Ativan 2 mg p.o. q.h.s. 10. Melatonin. 11. Meropenem 1 gm IV q8. 12. MiraLAX. 13. Mysoline. 14. Inderal. 15. Flomax 16. Ultram. 17. Vancomycin. PHYSICAL EXAMINATION: The patient is alert and oriented x2. Pulse is 81, blood pressure 130/61, respirations 24, temperature 97.7, pulse ox 96% on 3 liters. HEENT: Conjunctivae normal. Oral mucosa moist. NECK: No JVD. No lymph node enlargement. CARDIOVASCULAR; S1/S2. RESPIRATORY: Diminished breath sounds, especially at the bases. A few scattered rhonchi and crackles. Expiratory wheezing also present. ABDOMEN: Soft, nontender. No mass palpable. LEGS: No edema. NERVOUS SYSTEM: Diffusely weak. Tremors and involuntary movements also present. Patient unable to cooperate with the full exam. LYMPHATICS: No lymph node palpable in neck or axillae. LABS: WBC 7.7, hemoglobin 11.9. ASSESSMENT: 1. Multifocal bilateral pneumonia with sepsis, possibly aspiration pneumonia present on admission. 2. Cerebral palsy with myoclonic jerks. 3. Gastroesophageal reflux disease. 4. Hypertension. 5. Degenerative joint disease. 6. Benign prostatic hypertrophy. RECOMMENDATIONS AND DISCUSSION: Recommend to continue current medication, continue to monitor, continue symptomatic treatment. Otherwise, at this time will monitor the patient closely, continue the broad spectrum IV antibiotics, closely follow with pulmonary. Further recommendations to follow. MTDD
[2017-07-10] MEDS: LORazepam 1 MG TAB PO SCH (21:53)
[2017-07-10] MEDS: TAMSULOSIN 0.4 MG CAP.ER.24H PO SCH (21:53)
[2017-07-10] MEDS: MELATONIN 5 MG TABLET PO SCH (21:53)
[2017-07-10] MEDS: traMADol 50 MG TAB PO PRN (21:58)
[2017-07-11 05:21] LABS: Anion Gap 9 mmol/L; Blood Urea Nitrogen 9 mg/dL (9-20); Calcium 8.6 mg/dL (8.4-10.2); Carbon Dioxide 30 mmol/L (22-30); Chloride 98 mmol/L (98-107); Glucose 81 mg/dL (74-99); Non-African American GFR(MDRD) >60 (>60 ml/min/1.73 sqM); Potassium 4.3 mmol/L (3.5-5.1); Sodium 137 mmol/L (137-145)
[2017-07-11] MEDS: VANCOMYCIN 1,250 MG in SODIUM CHLORIDE 0.9% 250 ML IVPB SCH (06:23)
--- NOTE | 2017-07-11 07:24 | PN ---
DATE OF SERVICE: 07/10/17 I am covering for Dr. Barnes This 62 -year-old gentleman who was admitted with multilobar pneumonia also had cerebral palsy. The patient also had myoclonic checks also. The patient being closely monitored at this time. Dr. Hare is following the patient closely. The sensorium appears to be slightly improving at this time. Chest x-ray is noted. The patient is on broad spectrum IV antibiotics. Past medical history reviewed. REVIEW OF SYSTEMS: CARDIOVASCULAR: As mentioned earlier. Respiratory: As mentioned earlier. GI: No nausea or vomiting. : No dysuria. Nervous system : As mentioned earlier. Current medications are reviewed and include: 1. Tylenol 650 q6h prn. 2. Aspirin 320 mg. 3. Vitamin D3. 4. Klonopin. 5. Colace. 6. Lovenox. 7. Lexapro. 8. Claritin. 9. Ativan. 10. Melatonin. 11. Meropenem. 12. Miralax. 13. Mysoline. 14. Inderal. 15. Flomax. 16. Ultram. PHYSICAL EXAMINATION: On exam, alert and oriented times one. Pulse 72. Blood pressure 126/56. Respiratory rate 18. Temperature 98.2. Pulse ox 98% on room air. HEENT: Conjunctivae normal. Neck: No JVD. CARDIOVASCULAR: S1, S2. Respiratory: Breath sounds diminished at the bases. A few scattered rhonchi and crackles. Abdomen soft, nontender. LEGS: No edema. ADMISSIONS CONSULTANT: No focal deficits. LABS: WBC 10.7, hemoglobin 11.9. ASSESSMENT: 1. Multifocal bilateral pneumonia with sepsis, possible aspiration pneumonia present on admission. 2. Cerebral palsy with myoclonic jerks. 3. Gastroesophageal reflux disease. 4. Hypertension. 5. Degenerative joint disease. 6. Benign prostatic hypertrophy. RECOMMENDATIONS AND DISCUSSION: Recommend to continue the current medications, continue symptomatic treatment, continue current medications. Infectious disease evaluation regarding continuation of antibiotics and outpatient choices. Otherwise, monitor closely. The family decided to not extensively investigate the aspiration per staff. We will continue to monitor. Further recommendations to follow. Prognosis guarded. MTDD
[2017-07-11] MEDS: LORATADINE 10 MG TAB PO SCH (08:39)
[2017-07-11] MEDS: ENOXAPARIN 40 MG/0.4 ML SYRINGE SQ SCH (08:39)
[2017-07-11] MEDS: PROPRANOLOL 20 MG TAB PO SCH ×2 (08:39→22:24)
[2017-07-11] MEDS: ASPIRIN 325 MG TAB PO SCH ×2 (08:39→22:24)
[2017-07-11] MEDS: POLYETHYLENE GLYCOL 3350 17 GM POWD.PACK PO SCH (08:39)
[2017-07-11] MEDS: ESCITALOPRAM 10 MG TAB PO SCH (08:39)
[2017-07-11] MEDS: CHOLECALCIFEROL 1,000 UNIT TAB PO SCH (08:39)
[2017-07-11] MEDS: DOCUSATE 100 MG CAP PO SCH ×2 (08:39→22:24)
[2017-07-11] MEDS: MEROPENEM 1 GM in SODIUM CHLORIDE 0.9% 100 ML IVPB SCH (08:39)
[2017-07-11] MEDS: PRIMIDONE 250 MG TAB PO SCH ×2 (08:40→22:24)
--- NOTE | 2017-07-11 14:29 | P.PN ---
Subjective 59-year-old male patient with known history of cerebral palsy, with significant impairment in cognitive functions, quite debilitated and bedridden, comes into the hospital on 07/02/2017 because of fever. The patient was having temperatures on and off and and he was having increased cough and chest congestion and sweats. He was quite clammy. He was having tremors. He is known to have movement disorder with chronic tremors for which she was started on primidone. No reported aspiration although this is a significant concern nontender the patient has significant neurologic impairment related to his cerebral palsy. He was arousable. No lethargy. No abdominal distention. No nausea. No vomiting. White cell count at admission was at 14.8. His urinalysis also showed 4 WBCs with no obvious bacteria. Rest of the blood work including the renal function and electrodes are all within normal limits. The patient's chest x-ray showed an extensive right lung pneumonia for which she was started on a combination of Rocephin and Zithromax. Over the past few days the patient had a follow-up chest x-ray on 07/03/2017 and then another x-ray on 07/06/2017 and all of this chest x-ray showing a stable bilateral infiltrates more so on the right side with extensive consolidation in the right upper lobe. Based on this, the antibiotic that switched to IV Merrem. Rocephin and Zithromax was discontinued. He is currently on oxygen at 3 L/m nasal cannula and the pulse ox is around 95%. A swallow evaluation has not been done. His been taken soft mechanical mashed diet. His been also laying down comfortably. No seizure activity has been noted. On and off coughing. Cultures of been all negative thus far. The patient is seen again today 07/07/2017 in follow-up on the regular medical floor. He is more awake and alert today as compared to yesterday. He is answering yes no questions appropriately. He is tolerating a soft diet. He has not been choking or coughing as he is fed with assistance. He is maintaining good O2 saturations in the 90s on 3 L/m per nasal cannula. He is afebrile. Hemodynamically stable. He has been treated for his suspected aspiration pneumonia with both vancomycin and meropenem. The patient is seen again today 07/08/2017 in follow-up on the regular medical floor. He is currently resting fairly comfortably in bed. He is awake and alert in no acute distress. His chest x-ray continues to show multifocal pneumonia with some improvement more so on the right. He continues to maintain good O2 saturations in the 90s on 3 L/m per nasal cannula. His been afebrile. Hemodynamically stable. White count 10.7. He remains on vancomycin and meropenem. On 07/09/2017 the patient is being seen in follow-up. Patient is doing well. Active awake and interactive. As mentioned earlier he suffers from cerebral palsy. The chest x-ray from yesterday showed multifocal pneumonia particularly on the right however the airspace disease on the right was less confluent suggestive of some improvement. My suggestion is to repeat a follow-up chest x- ray in a.m. Otherwise, the patient is doing well. Hemodynamically stable. No fever. Eating with assistance. No leukocytosis. Renal function is stable. Electrolytes are all stable. Patient is seen again today 07/10/2017 in follow-up on the regular medical floor. Continues to be stable from the pulmonary standpoint. He is maintaining O2 saturations in the upper 90s on room air. He's been afebrile. Hemodynamically stable. His chest x-ray however continues to show multifocal pneumonia more so on the right lung. The patient is seen again today 07/11/2017 in follow-up on the regular medical floor. He is awake and alert in no acute distress. He is maintaining good O2 saturations in the 90s on 2 L/m per nasal cannula. He remains afebrile. Hemodynamically stable. He is continued on meropenem and vancomycin.. Objective - Vital Signs Vital signs: Vital Signs Temp 97.3 F L 07/11/17 07:00 Pulse 80 07/11/17 08:00 Resp 18 07/11/17 08:00 BP 119/60 07/11/17 07:00 Pulse Ox 96 07/11/17 07:00 Intake & Output 07/10/17 07/11/17 07/11/17 18:59 06:59 18:59 Intake Total 250 Output Total 3 Balance 247 Weight 54.5 kg 50 kg Intake: Oral 250 Output: Urine 3 Other: Voiding Method Diaper Diaper Diaper Incontinent Incontinent Incontinent # Voids 1 1 # Bowel Movements 1 - Exam Gen. appearance the patient is calm and comfortable likely distress. He has tremors and occasional jerky movements. These are movement disorder of any seizure activity. There tremors are rather generalized.Head exam was generally normal. There was no scleral icterus or corneal arcus. Mucous membranes were moist. Neck is supple and there is no JVDs no goiter or neck masses. Lungs sounds are diminished bilaterally along with crackles in the mid and lower lung ruiz bilaterally more so on the right.Cardiac exam revealed the PMI to be normally situated and sized. The rhythm was regular and no extrasystoles were noted during several minutes of auscultation. The first and second heart sounds were normal and physiologic splitting of the second heart sound was noted. There were no murmurs, rubs, clicks, or gallops.Abdominal exam revealed normal bowel sounds. The abdomen was soft, non-tender, and without masses, organomegaly , or appreciable enlargement of the abdominal aorta.Examination of the extremities revealed easily palpable radial, femoral and pedal pulses. There was no cyanosis, clubbing or edema. - Labs CBC & Chem 7: 07/07/17 08:13 07/11/17 04:55 Labs: Abnormal Lab Results - Last 24 Hours (Table) 07/11/17 Range/Units 04:55 Creatinine 0.60 L (0.66-1.25) mg/dL Assessment and Plan Plan: Assessment 1 bilateral pneumonia, quite extensive on the right with extensive consolidation of the right upper lobe. Suspect aspiration pneumonia. Suspect [facility] acquired pneumonia with potential gram-negative. The patient has not responded to a combination of Rocephin and Zithromax. He was switched to vancomycin and Merrem. Chest x-ray continues to show multifocal infiltrates more so on the right. 2 acute hypoxic respiratory failure, secondary to above 3 suspected aspiration 4 cerebral palsy with significant impairment of cognitive function and the patient has chronic parkinsonian movement disorder with occasional jerks and tremors 5 BPH 6 osteoarthritis involving multiple joints 7 hypertension 8 acid reflux Plan: The patient was seen and evaluated by Dr. Donovan. The patient does seem improved clinically on vancomycin and Merrem. We'll continue with his current medications. Aspiration precautions. We'll repeat a chest x-ray in the a.m. We' ll continue to follow. Upon discharge the plan is to return to [facility] on the [place].
[2017-07-11 15:47] VITALS: BMI 18.9
[2017-07-11] MEDS: PIPERACILLIN-TAZOBACTAM 3.375 GM in DEXTROSE/WATER 1 50ML.BAG IVPB SCH (15:53)
--- NOTE | 2017-07-11 20:03 | CONS ---
DATE OF SERVICE: 07/11/2017 REASON FOR CONSULTATION: Persistent pneumonia and antibiotic recommendations. HISTORY OF PRESENT ILLNESS: The patient is a 62-year-old male who presented to the ER at [facility] about 10 days on 07/02/2017 with the chief complaint of a fever. Apparently the patient had a fever of 99 to 100.7 degrees Fahrenheit. The patient was also noted to have some cough, but no sweats or any sputum production. The patient did have a chest x-ray which showed a new right upper lobe pneumonia. The patient was initially treated with Rocephin and Zithromax. He had persistent fever of 101 degrees Fahrenheit. Antibiotic was broadened to meropenem and vancomycin 07/06. Patient did have a follow-up x-ray done yesterday which showed persistent pneumonia. So ID was consulted for further recommendations regarding antibiotic therapy. The patient' s fever has resolved, as no fever has been seen or recorded since 07/05. The patient seems to be breathing comfortably on nasal cannula oxygen. Patient denies any worsening cough. No clear history of any choking on the food. The patient does have underlying cerebral palsy and is unable to give a good history ; most of the information has been obtained from review of the chart and talking with nursing staff. Review of systems could not be reliably obtained, but the positive ones are mentioned in the HPI. Past medical history is significant for: 1. Cerebral palsy. 2. Parkinsonism. 3. Benign prostatic hypertrophy. 4. Hypertension. 5. Osteoarthritis. 6. Gastroesophageal reflux disease. 7. Previous history of MRSA urinary tract infection. PAST SURGICAL HISTORY: 1. Total right hip arthroplasty. 2. Left hip replacement. 3. TURP. 4. Hand tendon surgery. SOCIAL HISTORY: No history of smoking, drinking or any drug use. FAMILY HISTORY: Father with history of [place]. ALLERGIES: NO KNOWN DRUG ALLERGIES. Medications currently include: 1. Tylenol. 2. Aspirin. 3. Vitamin D3. 4. Klonopin. 5. Colace. 6. Lovenox. 7. Lexapro. 8. Claritin. 9. Ativan. 10. Melatonin. 11. Meropenem. 12. Vancomycin. 13. Inderal. 14. Flomax. 15. Ultram. On examination, blood pressure is 114/49 with a pulse of 76, temperature 98.9. He is 95% on 3 L nasal cannula. General description is a middle-aged male lying in bed in no distress. No tachypnea or accessory muscle of respiration use. HEENT examination shows slight pallor. No scleral icterus. Oral mucous membrane is dry. NECK: Trachea is central. No thyromegaly. LUNGS: Unlabored breathing with decreased breath sounds at the base. No wheeze. HEART: S1, S2. Regular rate and rhythm. ABDOMEN: Soft. No tenderness. No guarding or rigidity. EXTREMITIES: No edema of the feet. SKIN EXAMINATION: No rash or mass palpable. Neurologically patient is awake, alert, oriented x1. Mood and affect normal. LABS: Hemoglobin is 11.9, white count 10.7. No CBC has been done since 07/07, with a BUN of 9, creatinine 0.60. Vancomycin trough was 20.4. Blood culture has been negative. No sputum has been collected. DIAGNOSTIC IMPRESSION AND PLAN: Patient with right upper lobe pneumonia, admitted to hospital with sepsis with a fever and elevated white count with concern about likely aspiration pneumonia. The patient seems to have shown clinical improvement, as his fever has resolved and white count normalized as of 07/07. Patient's blood culture has been negative. Unfortunately no sputum was collected to get a microbiological diagnosis. PLAN: 1. Will try to obtain sputum for Gram stain and culture and sensitivity. 2. Will discontinue the vancomycin and meropenem. 3. Patient will be given Zosyn while here in the hospital; however, he will be able to finish therapy with oral antibiotic, depending upon his repeat x-ray to be done tomorrow. Thank you for this consultation. Will follow this patient along with you. IFRAH
[2017-07-11] MEDS ORDERED: VANCOMYCIN 1,250 MG in SODIUM CHLORIDE 0.9% 250 ML IVPB SCH (22:00)
[2017-07-11] MEDS: TAMSULOSIN 0.4 MG CAP.ER.24H PO SCH (22:24)
[2017-07-11] MEDS: LORazepam 1 MG TAB PO SCH (22:24)
[2017-07-12] MEDS: PIPERACILLIN-TAZOBACTAM 3.375 GM in DEXTROSE/WATER 1 50ML.BAG IVPB SCH ×3 (00:30→17:26)
[2017-07-12] MEDS: MELATONIN 5 MG TABLET PO SCH ×2 (00:30→22:11)
[2017-07-12 09:19] LABS: Basophils # (A) 0.1 k/uL (0-0.2); Basophils % (A) 1 %; CH 29.4; Eosinophils # (A) 0.3 k/uL (0-0.7); Eosinophils % (A) 4 %; HCT 39.8 % (39.0-53.0); HDW 2.96; HGB 13.2 gm/dL (13.0-17.5); Luc # (Auto) 0.18; Luc % (Auto) 2; Lymphocytes # (A) 1.2 k/uL (1.0-4.8); Lymphocytes % (A) 15 %; MCH 29.6 pg (25.0-35.0); MCHC 33.1 g/dL (31.0-37.0); MCV 89.4 fL (80.0-100.0); Monocytes # (A) 0.4 k/uL (0-1.0); Monocytes % (A) 5 %; Neutrophils # (A) 5.9 k/uL (1.3-7.7); Neutrophils % (A) 73 %; RBC 4.45 m/uL (4.30-5.90); RDW 12.6 % (11.5-15.5); WBC 8.1 k/uL (3.8-10.6); WBC (Perox) 8.14
[2017-07-12] MEDS: CHOLECALCIFEROL 1,000 UNIT TAB PO SCH (09:24)
[2017-07-12] MEDS: ASPIRIN 325 MG TAB PO SCH ×2 (09:24→22:11)
[2017-07-12] MEDS: ESCITALOPRAM 10 MG TAB PO SCH (09:25)
[2017-07-12] MEDS: ENOXAPARIN 40 MG/0.4 ML SYRINGE SQ SCH (09:25)
[2017-07-12] MEDS: DOCUSATE 100 MG CAP PO SCH ×2 (09:25→22:12)
[2017-07-12] MEDS: LORATADINE 10 MG TAB PO SCH (09:26)
[2017-07-12] MEDS: POLYETHYLENE GLYCOL 3350 17 GM POWD.PACK PO SCH (09:26)
[2017-07-12] MEDS: PROPRANOLOL 20 MG TAB PO SCH ×2 (09:26→22:12)
[2017-07-12] MEDS: PRIMIDONE 250 MG TAB PO SCH ×2 (09:26→22:12)
--- NOTE | 2017-07-12 11:18 | P.PN ---
Subjective 59-year-old male patient with known history of cerebral palsy, with significant impairment in cognitive functions, quite debilitated and bedridden, comes into the hospital on 07/02/2017 because of fever. The patient was having temperatures on and off and and he was having increased cough and chest congestion and sweats. He was quite clammy. He was having tremors. He is known to have movement disorder with chronic tremors for which she was started on primidone. No reported aspiration although this is a significant concern nontender the patient has significant neurologic impairment related to his cerebral palsy. He was arousable. No lethargy. No abdominal distention. No nausea. No vomiting. White cell count at admission was at 14.8. His urinalysis also showed 4 WBCs with no obvious bacteria. Rest of the blood work including the renal function and electrodes are all within normal limits. The patient's chest x-ray showed an extensive right lung pneumonia for which she was started on a combination of Rocephin and Zithromax. Over the past few days the patient had a follow-up chest x-ray on 07/03/2017 and then another x-ray on 07/06/2017 and all of this chest x-ray showing a stable bilateral infiltrates more so on the right side with extensive consolidation in the right upper lobe. Based on this, the antibiotic that switched to IV Merrem. Rocephin and Zithromax was discontinued. He is currently on oxygen at 3 L/m nasal cannula and the pulse ox is around 95%. A swallow evaluation has not been done. His been taken soft mechanical mashed diet. His been also laying down comfortably. No seizure activity has been noted. On and off coughing. Cultures of been all negative thus far. The patient is seen again today 07/07/2017 in follow-up on the regular medical floor. He is more awake and alert today as compared to yesterday. He is answering yes no questions appropriately. He is tolerating a soft diet. He has not been choking or coughing as he is fed with assistance. He is maintaining good O2 saturations in the 90s on 3 L/m per nasal cannula. He is afebrile. Hemodynamically stable. He has been treated for his suspected aspiration pneumonia with both vancomycin and meropenem. The patient is seen again today 07/08/2017 in follow-up on the regular medical floor. He is currently resting fairly comfortably in bed. He is awake and alert in no acute distress. His chest x-ray continues to show multifocal pneumonia with some improvement more so on the right. He continues to maintain good O2 saturations in the 90s on 3 L/m per nasal cannula. His been afebrile. Hemodynamically stable. White count 10.7. He remains on vancomycin and meropenem. On 07/09/2017 the patient is being seen in follow-up. Patient is doing well. Active awake and interactive. As mentioned earlier he suffers from cerebral palsy. The chest x-ray from yesterday showed multifocal pneumonia particularly on the right however the airspace disease on the right was less confluent suggestive of some improvement. My suggestion is to repeat a follow-up chest x- ray in a.m. Otherwise, the patient is doing well. Hemodynamically stable. No fever. Eating with assistance. No leukocytosis. Renal function is stable. Electrolytes are all stable. Patient is seen again today 07/10/2017 in follow-up on the regular medical floor. Continues to be stable from the pulmonary standpoint. He is maintaining O2 saturations in the upper 90s on room air. He's been afebrile. Hemodynamically stable. His chest x-ray however continues to show multifocal pneumonia more so on the right lung. The patient is seen again today 07/11/2017 in follow-up on the regular medical floor. He is awake and alert in no acute distress. He is maintaining good O2 saturations in the 90s on 2 L/m per nasal cannula. He remains afebrile. Hemodynamically stable. He is continued on meropenem and vancomycin. The patient was seen again today 07/12/2017 in follow-up in the regular medical floor. He remains awake and alert in no acute distress. He denies any worsening shortness of breath cough or congestion. He is asking to go home. Infectious disease is on the case as well and has discontinued the vancomycin and meropenem. He is currently on Zosyn. He continues to maintain good O2 saturations in the upper 90s on 3 L/m per nasal cannula. He is afebrile. Hemodynamically stable. White count 8.1. Objective - Vital Signs Vital signs: Vital Signs Temp 98.3 F 07/12/17 07:00 Pulse 57 L 07/12/17 07:00 Resp 16 07/12/17 07:00 BP 128/70 07/12/17 07:00 Pulse Ox 97 07/12/17 07:00 Intake & Output 07/11/17 07/12/17 07/12/17 18:59 06:59 18:59 Intake Total 604 Balance 604 Weight 50 kg 52 kg Intake: Oral 604 Other: Voiding Method Diaper Diaper Incontinent Incontinent # Voids 1 1 - Exam Gen. appearance the patient is calm and comfortable likely distress. He has tremors and occasional jerky movements. These are movement disorder of any seizure activity. There tremors are rather generalized.Head exam was generally normal. There was no scleral icterus or corneal arcus. Mucous membranes were moist. Neck is supple and there is no JVDs no goiter or neck masses. Lungs sounds are diminished bilaterally along with crackles in the mid and lower lung ruiz bilaterally more so on the right.Cardiac exam revealed the PMI to be normally situated and sized. The rhythm was regular and no extrasystoles were noted during several minutes of auscultation. The first and second heart sounds were normal and physiologic splitting of the second heart sound was noted. There were no murmurs, rubs, clicks, or gallops.Abdominal exam revealed normal bowel sounds. The abdomen was soft, non-tender, and without masses, organomegaly , or appreciable enlargement of the abdominal aorta.Examination of the extremities revealed easily palpable radial, femoral and pedal pulses. There was no cyanosis, clubbing or edema. - Labs CBC & Chem 7: 07/12/17 08:56 07/11/17 04:55 Labs: Abnormal Lab Results - Last 24 Hours (Table) 07/12/17 Range/Units 08:56 Plt Count 485 H (150-450) k/uL Assessment and Plan Plan: Assessment 1 bilateral pneumonia, quite extensive on the right with extensive consolidation of the right upper lobe. Suspect aspiration pneumonia. Suspect skilled nursing acquired pneumonia with potential gram-negative. The patient has not responded to a combination of Rocephin and Zithromax. He was switched to vancomycin and Merrem. Chest x-ray continues to show multifocal infiltrates more so on the right. 07/12/2017 Infectious disease is on the case and has now discontinued vancomycin and Merrem and he has been initiated on Zosyn. 2 acute hypoxic respiratory failure, secondary to above 3 suspected aspiration 4 cerebral palsy with significant impairment of cognitive function and the patient has chronic parkinsonian movement disorder with occasional jerks and tremors 5 BPH 6 osteoarthritis involving multiple joints 7 hypertension 8 acid reflux Plan: The patient was seen and evaluated by Dr. Donovan. We'll continue with his current medications. Aspiration precautions. We'll repeat a chest x-ray in the a.m. We'll continue to follow. Upon discharge the plan is to return to [facility] on the [place].
--- NOTE | 2017-07-12 13:10 | PN ---
DATE OF SERVICE: 07/11/2017 This 62-year-old gentleman who was admitted with multifocal bilateral pneumonia also had sepsis. The patient is improving at this time, but however the significant lesions in the chest x-ray has been noted. Currently, patient is on Zosyn. Oral antibiotics been considered. On exam, pulse is 70, blood pressure is 114/49, respirations 22, temperature 98.9, pulse ox 94% on 3 L. HEENT: Conjunctivae normal. NECK: No jugular venous distention. CARDIOVASCULAR: S1 and S2 muffled. RESPIRATORY: Breath sounds diminished at the bases. Bilateral scattered rhonchi and crackles. Expiratory wheezing. ABDOMEN: Soft, nontender . LEGS: No edema. NERVOUS SYSTEM: Diffusely weak. Labs are WBC 10.7. ASSESSMENT: 1. Multifocal bilateral pneumonia with sepsis, possible aspiration pneumonia present on admission. 2. Cerebral palsy with myoclonic jerks. 3. Gastroesophageal reflux disease. 4. Hypertension. 5. Degenerative joint disease. 6. Benign prostatic hypertrophy. RECOMMENDATIONS AND DISCUSSION: Recommend to continue current medications. Continue symptomatic treatment. Otherwise monitor closely. Continue with the antibiotics. Infectious Disease evaluation appreciated. Further recommendations to follow. MTDD
--- NOTE | 2017-07-12 17:38 | PN ---
DATE OF SERVICE: 07/12/2017 REASON FOR FOLLOWUP: Possible aspiration pneumonia. INTERVAL HISTORY: The patient is afebrile. He has been breathing comfortably. He has very minimal cough; not bringing up any sputum. No chest pain. No abdominal pain or any diarrhea. On examination, blood pressure is 128/70 with a pulse of 57, temperature 98.3. He is 97% on 3 L nasal cannula. General description is a middle-aged male lying in bed in no distress. RESPIRATORY SYSTEM: Unlabored breathing. Clear to auscultation anteriorly. HEART: S1, S2. Regular rate and rhythm. ABDOMEN: Soft. No tenderness. LABS: Hemoglobin 13.2, white count 8.1. Blood culture has been negative. Sputum was not collected. DIAGNOSTIC IMPRESSION AND PLAN: Patient with right upper lobe aspiration pneumonia. Patient seems to show overall improvement, currently on Zosyn. That will be continued with a plan to finish therapy with oral Avelox 400 daily for another 7 to 10 days. MTDD
--- NOTE | 2017-07-12 19:21 | PN ---
DATE OF SERVICE: 07/12/17 This 62-year-old Gentleman who was admitted with multifactorial pneumonia nausea is being closely monitored. The patient on IV antibiotics. No chest pain. No palpitations. No fever. Aspiration precautions has been continued. On exam, pulse 57. Blood pressure 128/70. Respiratory rate 16. Temperature 98.3 degrees. Pulse ox 97% on 3 L. HEENT: Conjunctivae normal. Neck: No JVD. CARDIOVASCULAR: S1, S2 muffled. Respiratory: Breath sounds diminished at the bases. A few scattered rhonchi. Abdomen soft, nontender. LEGS: No edema. No swelling. SUPERVISOR FILES: The patients tone in increased. Bilateral tremors also present. LABS: WBC 8.1, hemoglobin 13.2. not detected. ASSESSMENT: 1. Acute multifocal bilateral pneumonia with sepsis possibly aspiration, present on admission. 2. Cerebral palsy with myoclonic jerks. 3. Gastroesophageal reflux disease. 4. Hypertension. 5. Degenerative joint disease. 6. Benign prostatic hypertrophy. RECOMMENDATIONS AND DISCUSSION: Recommend to continue the current medications, continue with monitoring and symptomatic treatment. Otherwise, at this time, I would recommend continue with Antibiotics. Further recommendations to follow. Possible ECF rehab. [facility]
[2017-07-12] MEDS: TAMSULOSIN 0.4 MG CAP.ER.24H PO SCH (22:11)
[2017-07-12] MEDS: LORazepam 1 MG TAB PO SCH (22:11)
[2017-07-13] MEDS: PIPERACILLIN-TAZOBACTAM 3.375 GM in DEXTROSE/WATER 1 50ML.BAG IVPB SCH ×3 (00:53→15:32)
[2017-07-13 07:29] VITALS: BP 101/57; PULSE 59; RESP 20; TEMP 96.9
[2017-07-13] MEDS: ESCITALOPRAM 10 MG TAB PO SCH (09:23)
[2017-07-13] MEDS: ASPIRIN 325 MG TAB PO SCH (09:23)
[2017-07-13] MEDS: ENOXAPARIN 40 MG/0.4 ML SYRINGE SQ SCH (09:23)
[2017-07-13] MEDS: DOCUSATE 100 MG CAP PO SCH (09:23)
[2017-07-13] MEDS: CHOLECALCIFEROL 1,000 UNIT TAB PO SCH (09:23)
[2017-07-13] MEDS: LORATADINE 10 MG TAB PO SCH (09:24)
[2017-07-13] MEDS: PROPRANOLOL 20 MG TAB PO SCH (09:24)
[2017-07-13] MEDS: PRIMIDONE 250 MG TAB PO SCH (09:24)
[2017-07-13] MEDS: POLYETHYLENE GLYCOL 3350 17 GM POWD.PACK PO SCH (09:24)
--- NOTE | 2017-07-13 10:57 | XR ---
EXAMINATION TYPE: XR chest 1V portable DATE OF EXAM: 07/13/2017 COMPARISON: Prior chest x-ray 07/10/2017 HISTORY: Follow-up pneumonia TECHNIQUE: Single frontal view of the chest is obtained. FINDINGS: Abnormal airspace disease in the right upper lobe is again noted. Some improvement in the interstitium in the remainder of the lungs. No pneumothorax or pleural effusion. Heart size is stable . IMPRESSION: Persistent abnormal density in the right upper lobe. Improvement in volume status suspec ramin. Additional follow-up recommended.
--- NOTE | 2017-07-13 11:37 | P.PN ---
Subjective 59-year-old male patient with known history of cerebral palsy, with significant impairment in cognitive functions, quite debilitated and bedridden, comes into the hospital on 07/02/2017 because of fever. The patient was having temperatures on and off and and he was having increased cough and chest congestion and sweats. He was quite clammy. He was having tremors. He is known to have movement disorder with chronic tremors for which she was started on primidone. No reported aspiration although this is a significant concern nontender the patient has significant neurologic impairment related to his cerebral palsy. He was arousable. No lethargy. No abdominal distention. No nausea. No vomiting. White cell count at admission was at 14.8. His urinalysis also showed 4 WBCs with no obvious bacteria. Rest of the blood work including the renal function and electrodes are all within normal limits. The patient's chest x-ray showed an extensive right lung pneumonia for which she was started on a combination of Rocephin and Zithromax. Over the past few days the patient had a follow-up chest x-ray on 07/03/2017 and then another x-ray on 07/06/2017 and all of this chest x-ray showing a stable bilateral infiltrates more so on the right side with extensive consolidation in the right upper lobe. Based on this, the antibiotic that switched to IV Merrem. Rocephin and Zithromax was discontinued. He is currently on oxygen at 3 L/m nasal cannula and the pulse ox is around 95%. A swallow evaluation has not been done. His been taken soft mechanical mashed diet. His been also laying down comfortably. No seizure activity has been noted. On and off coughing. Cultures of been all negative thus far. The patient is seen again today 07/07/2017 in follow-up on the regular medical floor. He is more awake and alert today as compared to yesterday. He is answering yes no questions appropriately. He is tolerating a soft diet. He has not been choking or coughing as he is fed with assistance. He is maintaining good O2 saturations in the 90s on 3 L/m per nasal cannula. He is afebrile. Hemodynamically stable. He has been treated for his suspected aspiration pneumonia with both vancomycin and meropenem. The patient is seen again today 07/08/2017 in follow-up on the regular medical floor. He is currently resting fairly comfortably in bed. He is awake and alert in no acute distress. His chest x-ray continues to show multifocal pneumonia with some improvement more so on the right. He continues to maintain good O2 saturations in the 90s on 3 L/m per nasal cannula. His been afebrile. Hemodynamically stable. White count 10.7. He remains on vancomycin and meropenem. On 07/09/2017 the patient is being seen in follow-up. Patient is doing well. Active awake and interactive. As mentioned earlier he suffers from cerebral palsy. The chest x-ray from yesterday showed multifocal pneumonia particularly on the right however the airspace disease on the right was less confluent suggestive of some improvement. My suggestion is to repeat a follow-up chest x- ray in a.m. Otherwise, the patient is doing well. Hemodynamically stable. No fever. Eating with assistance. No leukocytosis. Renal function is stable. Electrolytes are all stable. Patient is seen again today 07/10/2017 in follow-up on the regular medical floor. Continues to be stable from the pulmonary standpoint. He is maintaining O2 saturations in the upper 90s on room air. He's been afebrile. Hemodynamically stable. His chest x-ray however continues to show multifocal pneumonia more so on the right lung. The patient is seen again today 07/11/2017 in follow-up on the regular medical floor. He is awake and alert in no acute distress. He is maintaining good O2 saturations in the 90s on 2 L/m per nasal cannula. He remains afebrile. Hemodynamically stable. He is continued on meropenem and vancomycin. The patient was seen again today 07/12/2017 in follow-up in the regular medical floor. He remains awake and alert in no acute distress. He denies any worsening shortness of breath cough or congestion. He is asking to go home. Infectious disease is on the case as well and has discontinued the vancomycin and meropenem. He is currently on Zosyn. He continues to maintain good O2 saturations in the upper 90s on 3 L/m per nasal cannula. He is afebrile. Hemodynamically stable. White count 8.1. The patient is seen again today 07/13/2017 in follow-up in the regular medical floor. He is currently resting comfortably in bed. He denies any worsening shortness of breath, cough or congestion. His chest x-ray continues to shows a density in the right upper lobe. Overall volume status is improved however. He remains afebrile. Maintaining O2 saturations in the high 90s on 3 L/m per nasal cannula. Hemodynamically stable. Objective - Vital Signs Vital signs: Vital Signs Temp 96.9 F L 07/13/17 07:00 Pulse 59 L 07/13/17 07:00 Resp 20 07/13/17 07:00 BP 101/57 07/13/17 07:00 Pulse Ox 98 07/13/17 07:00 Intake & Output 07/12/17 07/13/17 07/13/17 18:59 06:59 18:59 Weight 50.5 kg Other: Voiding Method Diaper Diaper Diaper Incontinent Incontinent Incontinent # Voids 3 1 # Bowel Movements 1 1 - Exam Gen. appearance the patient is calm and comfortable likely distress. He has tremors and occasional jerky movements. These are movement disorder of any seizure activity. There tremors are rather generalized.Head exam was generally normal. There was no scleral icterus or corneal arcus. Mucous membranes were moist. Neck is supple and there is no JVDs no goiter or neck masses. Lungs sounds are diminished bilaterally along with crackles in the mid and lower lung ruiz bilaterally more so on the right.Cardiac exam revealed the PMI to be normally situated and sized. The rhythm was regular and no extrasystoles were noted during several minutes of auscultation. The first and second heart sounds were normal and physiologic splitting of the second heart sound was noted. There were no murmurs, rubs, clicks, or gallops.Abdominal exam revealed normal bowel sounds. The abdomen was soft, non-tender, and without masses, organomegaly , or appreciable enlargement of the abdominal aorta.Examination of the extremities revealed easily palpable radial, femoral and pedal pulses. There was no cyanosis, clubbing or edema. - Labs CBC & Chem 7: 07/12/17 08:56 07/11/17 04:55 Assessment and Plan Plan: Assessment 1 bilateral pneumonia, quite extensive on the right with extensive consolidation of the right upper lobe. Suspect aspiration pneumonia. Suspect assisted acquired pneumonia with potential gram-negative. The patient has not responded to a combination of Rocephin and Zithromax. He was switched to vancomycin and Merrem. Chest x-ray continues to show multifocal infiltrates more so on the right. 07/12/2017 Infectious disease is on the case and has now discontinued vancomycin and Merrem and he has been initiated on Zosyn. 07/13/2017 today's chest x-ray does show improvement in volume status however there remains a density in the right upper lobe. This will be followed up in the outpatient setting. 2 acute hypoxic respiratory failure, secondary to above 3 suspected aspiration 4 cerebral palsy with significant impairment of cognitive function and the patient has chronic parkinsonian movement disorder with occasional jerks and tremors 5 BPH 6 osteoarthritis involving multiple joints 7 hypertension 8 acid reflux Plan: The patient was seen and evaluated by Dr. Donovan. His chest x-ray was reviewed. He is cleared for discharge from the pulmonary standpoint. He'll follow-up in our office with Dr. Hare in 1-2 weeks' time. We'll repeat a chest x-ray then. He'll complete his course of antibiotics per ID.
--- NOTE | 2017-07-13 12:48 | P.DS ---
Providers Date of admission: 07/02/17 07:33 Attending physician: Nelson Barnes Consults: 07/05/17 11:14 Consult Physician Routine Consulting Provider: Norah Hare Consult Reason/Comments: PNEUMONIA Do you want consulting provider notified?: Yes 07/10/17 18:32 Consult Physician Routine Consulting Provider: Yaritza Wu Consult Reason/Comments: pneumonia Do you want consulting provider notified?: Yes Primary care physician: [facility] Hospital Course: This 62-year-old gentleman was admitted for with multifocal pneumonia which is bilateral sepsis and aspiration. Patient also had significant neurological symptoms including cerebral palsy and myotonic jerks. Patient was treated with IV antibiotics. Infectious disease saw the patient. Patient improved significantly. Aspiration precautions and had of the bed elevated to 45 elevated. On exam vitals stable. S1-S2 normal. Chest few rhonchi. Nervous system unchanged. Total time taken 35 minutes. Patient be discharged to [facility]. Final diagnosis 1. Acute multifocal bilateral pneumonia with sepsis possible aspiration present on admission. 2. Cerebral palsy with myoclonic jerks 3. GERD 4. Hypertension 5. DJD 6. BPH Patient Condition at Discharge: Stable Plan - Discharge Summary New Discharge Prescriptions: New LORazepam [Ativan] 2 mg PO HS #30 tab Acetaminophen Tab [Tylenol] 650 mg PO Q6HR PRN tab PRN Reason: Fever And/ Or Pain clonazePAM [KlonoPIN] 1 mg PO TID PRN #10 tab PRN Reason: Anxiety Primidone [Mysoline] 250 mg PO BID tab traMADol HCl [Ultram] 100 mg PO Q6HR PRN #20 tab PRN Reason: MODERATE PAIN Moxifloxacin HCl [Avelox] 400 mg PO DAILY #10 tablet Continue Loratadine [Claritin] 10 mg PO DAILY@0900 Escitalopram [Lexapro] 10 mg PO DAILY@0900 Docusate [Colace] 100 mg PO BID Cholecalciferol [Vitamin D3] 1,000 unit PO DAILY@0900 Polyethylene Glycol 3350 [Miralax] 17 gm PO DAILY PRN PRN Reason: Constipation Menthol/Zinc Oxide [Calmoseptine Ointment] 1 applic TOPICAL Q12H Tamsulosin HCl [Flomax] 0.8 mg PO HS@2100 Aspirin 325 mg PO BID Propranolol [Inderal] 20 mg PO BID@0900,1700 Escitalopram [Lexapro] 5 mg PO DAILY@0900 Melatonin 10 mg PO HS@2100 Discontinued traMADol HCl [Ultram] 100 mg PO Q6HR PRN #60 tab PRN Reason: Pain Primidone [Mysoline] 250 mg PO DAILY@0900 clonazePAM [Clonazepam] 1 mg PO TID@0900,1300,2100 Discharge Medication List Aspirin 325 mg PO BID 09/18/16 [History] Cholecalciferol [Vitamin D3] 1,000 unit PO DAILY@0900 09/18/16 [History] Docusate [Colace] 100 mg PO BID 09/18/16 [History] Escitalopram [Lexapro] 10 mg PO DAILY@0900 09/18/16 [History] Loratadine [Claritin] 10 mg PO DAILY@0900 09/18/16 [History] Menthol/Zinc Oxide [Calmoseptine Ointment] 1 applic TOPICAL Q12H 09/18/16 [ History] Polyethylene Glycol 3350 [Miralax] 17 gm PO DAILY PRN 09/18/16 [History] Propranolol [Inderal] 20 mg PO BID@0900,1700 09/18/16 [History] Tamsulosin HCl [Flomax] 0.8 mg PO HS@2100 09/18/16 [History] Escitalopram [Lexapro] 5 mg PO DAILY@0900 07/02/17 [History] Melatonin 10 mg PO HS@2100 07/02/17 [History] LORazepam [Ativan] 2 mg PO HS #30 tab 07/04/17 [Rx] Acetaminophen Tab [Tylenol] 650 mg PO Q6HR PRN tab 07/13/17 [Rx] Moxifloxacin HCl [Avelox] 400 mg PO DAILY #10 tablet 07/13/17 [Rx] Primidone [Mysoline] 250 mg PO BID tab 07/13/17 [Rx] clonazePAM [KlonoPIN] 1 mg PO TID PRN #10 tab 07/13/17 [Rx] traMADol HCl [Ultram] 100 mg PO Q6HR PRN #20 tab 07/13/17 [Rx] Follow up Appointment(s)/Referral(s): Alexis Morrissey MD [STAFF PHYSICIAN] - 3 Days (while at [facility]) Kulwinder Ackerman MD [Primary Care Provider] - 1 Week (after dc from ECF) Activity/Diet/Wound Care/Special Instructions: [facility] Diet: cardiac ACtivity: limited TIll F/U
--- NOTE | 2017-07-13 17:53 | PN ---
DATE OF SERVICE; 07/13/2017 REASON FOR FOLLOW UP: Possible aspiration pneumonia. INTERVAL HISTORY: The patient is afebrile, has been breathing comfortably. No choking per the RN. No nausea, vomiting or any diarrhea. On examination, blood pressure 101/57 with a pulse of 59, temperature 96.9, he is 98% on 3 liters nasal cannula. GENERAL DESCRIPTION: Middle-aged male lying in bed in no distress. RESPIRATORY: Unlabored breathing with decreased breath sounds at the bases. No wheeze. HEART: S1/ S2 regular. ABDOMEN: Soft, no tenderness. LABS: Hemoglobin is 15.1, WBC 8.1 with a BUN of 9 and creatinine 0.20. DIAGNOSTIC IMPRESSION: Patient with right upper lobe pneumonia, likely aspiration in etiology. Patient did have overall clinical improvement. Plan at this time is to finish therapy with the oral Avelox 400 daily for 10 days. The patient should have repeat chest x-ray done at the end of therapy to make sure resolution of the abnormal mid and right upper lobe. If not, the patient needs a CAT scan and further workup. [facility]
== END 2017-07-13 16:32 | DRG 871 ==
LOC: EC 03:11 → 4MS4W 07:33
PROVIDERS: ADMIT Hospitalist; ATTEND Hospitalist
DX: A41.9 Sepsis, unspecified organism (principal); J69.0 Pneumonitis due to inhalation of food and vomit; J96.01 Acute respiratory failure with hypoxia; J15.6 Pneumonia due to other Gram-negative bacteria; G25.3 Myoclonus; I10 Essential (primary) hypertension; G80.9 Cerebral palsy, unspecified; K21.9 Gastro-esophageal reflux disease without esophagitis; M15.9 Polyosteoarthritis, unspecified; N40.0 Benign prostatic hyperplasia without lower urinary tract symptoms; F32.9 Major depressive disorder, single episode, unspecified; R32 Unspecified urinary incontinence; Z79.82 Long term (current) use of aspirin; Z79.899 Other long term (current) drug therapy; Z86.14 Personal history of Methicillin resistant Staphylococcus aureus infection; Z96.643 Presence of artificial hip joint, bilateral; Z82.49 Family history of ischemic heart disease and other diseases of the circulatory system; Y95 Nosocomial condition
CPT/HCPCS: 36415; 71010; 71020; 80048; 80053; 80202; 81001; 82550; 82553; 83605; 83735; 85025; 87040; 87086; 87449; 94760; 96361; 96365; 96375; 99284

== ENCOUNTER 2017-08-15 18:59 | Inpatient (IN) | payer MEDICARE, OTHER ==
[2017-08-15] MEDS ORDERED: SODIUM CHLORIDE 0.9% 1,000 ML IV STA ×2 (19:24)
[2017-08-15] MEDS ORDERED: IPRATROPIUM-ALBUTEROL 3 ML NEB INHALATION STA (19:24)
[2017-08-15] MEDS ORDERED: KETOROLAC 30 MG/ML 1 ML VIAL IVP STA (19:26)
[2017-08-15] MEDS ORDERED: LEVOFLOXACIN 750MG-D5W PMX 750 MG in DEXTROSE/WATER 1 150ML.BAG IVPB STA (19:28)
[2017-08-15 19:45] LABS: Basophils # (A) 0.1 k/uL (0-0.2); Basophils % (A) 0 %; CH 30.8; Eosinophils # (A) 0.2 k/uL (0-0.7); Eosinophils % (A) 1 %; HCT 40.2 % (39.0-53.0); HDW 2.41; HGB 13.4 gm/dL (13.0-17.5); Luc # (Auto) 0.16; Luc % (Auto) 1; Lymphocytes # (A) 1.1 k/uL (1.0-4.8); Lymphocytes % (A) 5 %; MCH 29.4 pg (25.0-35.0); MCHC 33.3 g/dL (31.0-37.0); MCV 88.3 fL (80.0-100.0); Mean Platelet Volume 7.1; Monocytes # (A) 1.3 k/uL (0-1.0); Monocytes % (A) 6 %; Neutrophils # (A) 18.2 k/uL (1.3-7.7); Neutrophils % (A) 86 %; RBC 4.55 m/uL (4.30-5.90); RDW 15.9 % (11.5-15.5)
[2017-08-15 19:46] LABS: ALT 56 U/L (21-72); AST 62 U/L (17-59); Alkaline Phosphatase 119 U/L (38-126); Anion Gap 8 mmol/L; Blood Urea Nitrogen 14 mg/dL (9-20); Calcium 8.8 mg/dL (8.4-10.2); Carbon Dioxide 25 mmol/L (22-30); Chloride 101 mmol/L (98-107); Glucose 126 mg/dL (74-99); Non-African American GFR(MDRD) >60 (>60 ml/min/1.73 sqM); Potassium 4.9 mmol/L (3.5-5.1); Sodium 134 mmol/L (137-145); Total Bilirubin 0.8 mg/dL (0.2-1.3); Total Protein 7.4 g/dL (6.3-8.2)
[2017-08-15 19:59] LABS: Creatine Kinase 61 U/L (55-170)
[2017-08-15 20:00] LABS: Amorphous Sediment,Urine Occasional /hpf; Appearance,Urine Cloudy (Clear); Bilirubin,Urine Negative (Negative); Glucose,Urine (UA) Negative (Negative); Ketones,Urine Negative (Negative); Leukocyte Esterase,Urine Large (Negative); Mucus,Urine Rare /hpf; Nitrite,Urine Negative (Negative); Particle Count 4765; Protein,Urine 2+ (Negative); RBC,Urine 87 /hpf (0-5); Specific Gravity,Urine 1.016 (1.001-1.035); Squamous Epithelial Cell,Urine 1 /hpf (0-4); UA Billing (MACRO vs. MICRO) MICRO; Urobilinogen,Urine <2.0 mg/dL (<2.0); WBC,Urine >182 /hpf (0-5)
[2017-08-15 20:12] LABS: Creatine Kinase MB 0.2 ng/mL (0.0-2.4); Troponin I <0.012 ng/mL (0.000-0.034)
--- NOTE | 2017-08-15 20:36 | XR ---
EXAMINATION TYPE: XR chest 2V DATE OF EXAM: 08/15/2017 COMPARISON: NONE HISTORY: Shortness of breath TECHNIQUE: Frontal and lateral views of the chest are obtained. FINDINGS: Scattered senescent parenchymal changes noted. Hyperinflation compatible with COPD. Resolution of previously noted right upper lobe infiltrate with small residual area remaining. Heart size is enlarged. Mediastinal structures are stable and grossly unremarkable. No evidence for hilar prominence. Degenerative changes dorsal spine. Chronic deformities left sided ribs. IMPRESSION: 1. Resolution of previously noted right upper lobe infiltrate with small residual area remaining.
[2017-08-15 20:42] LABS: INR 1.1 (<1.2); Prothrombin Time 11.2 sec (9.0-12.0)
[2017-08-15] MEDS ORDERED: NALOXONE 0.4 MG/ML 1 ML VIAL IV PRN (21:04)
[2017-08-15] MEDS ORDERED: IBUPROFEN 400 MG TAB PO PRN (21:04)
[2017-08-15] MEDS ORDERED: ACETAMINOPHEN TAB 325 MG TAB PO PRN (21:04)
[2017-08-15] MEDS ORDERED: ONDANSETRON 4 MG/2 ML VIAL IVP PRN (21:04)
--- NOTE | 2017-08-15 21:04 | ED ---
Fever HPI - General Chief Complaint: Fever Stated Complaint: Fever Time Seen by Provider: 08/15/17 19:21 Source: patient, EMS Mode of arrival: EMS Limitations: no limitations - History of Present Illness Initial Comments: This 62-year-old white male presents with a complaint of a fever. His temperature apparently is 103. He does have a history of frequent urinary tract infections. He also was in the hospital recently for pneumonia. He does have a history of cerebral palsy as well. He currently is denying any complaints but overall is seeming to be a fairly poor historian. History is limited. No other complaints or modifying factors identified. - Related Data Home Medications Medication Instructions Recorded Confirmed Aspirin 325 mg PO BID 09/18/16 08/15/17 Cholecalciferol [Vitamin D3] 1,000 unit PO DAILY@0900 09/18/16 08/15/17 Docusate [Colace] 100 mg PO BID 09/18/16 08/15/17 Escitalopram [Lexapro] 10 mg PO DAILY@0900 09/18/16 08/15/17 Loratadine [Claritin] 10 mg PO DAILY@0900 09/18/16 08/15/17 Menthol/Zinc Oxide [Calmoseptine 1 applic TOPICAL Q12H 09/18/16 08/15/17 Ointment] Polyethylene Glycol 3350 [Miralax] 17 gm PO DAILY PRN 09/18/16 08/15/17 Propranolol [Inderal] 20 mg PO BID@0900,1700 09/18/16 08/15/17 Tamsulosin HCl [Flomax] 0.8 mg PO HS@2100 09/18/16 08/15/17 Escitalopram [Lexapro] 5 mg PO DAILY@0900 07/02/17 08/15/17 Melatonin 10 mg PO HS@2100 07/02/17 08/15/17 Ensure Clear 1 can PO DAILY 08/15/17 08/15/17 Lactulose 10 gm PO BID PRN 08/15/17 08/15/17 Previous Rx's Medication Instructions Recorded Acetaminophen Tab [Tylenol] 650 mg PO Q6HR PRN tab 07/13/17 Primidone [Mysoline] 250 mg PO BID tab 07/13/17 clonazePAM [KlonoPIN] 1 mg PO TID PRN #10 tab 07/13/17 traMADol HCl [Ultram] 100 mg PO Q6HR PRN #20 tab 07/13/17 Allergies Allergy/AdvReac Type Severity Reaction Status Date / Time No Known Allergies Allergy Verified 08/15/17 20:06 Review of Systems ROS Statement: Those systems with pertinent positive or pertinent negative responses have been documented in the HPI. ROS Other: All systems not noted in ROS Statement are negative. Past Medical History Past Medical History: Prostate Disorder Additional Past Medical History / Comment(s): Cerebral palsy, parkinsonian features, BPH, hypertension, osteoarthritis, acid reflux History of Any Multi-Drug Resistant Organisms: MRSA Date of last positivie culture/infection: 10/01/16 MDRO Source:: URINE Past Surgical History: Joint Replacement, Orthopedic Surgery, Prostate Surgery Additional Past Surgical History / Comment(s): 01/18/16 Total R hip arthroplasty. Other surgeries: LT HIP REPLACEMENT, TURP, hand tendon surg. Past Anesthesia/Blood Transfusion Reactions: No Reported Reaction Past Psychological History: Depression Smoking Status: Never smoker Past Alcohol Use History: None Reported Past Drug Use History: None Reported - Past Family History Mother Family Medical History: No Reported History Additional Family Medical History / Comment(s): Mother is healthy and is 91 yrs old. Father Family Medical History: Myocardial Infarction (ME) Additional Family Medical History / Comment(s): Father at age 59. He had several ME's. General Exam - General Exam Comments Initial Comments: GENERAL: The patient is well nourished and well hydrated. VITAL SIGNS: Heart rate, blood pressure, respiratory rate reviewed as recorded in nurse's notes. EYES: Pupils are round and reactive. Extraocular movements are intact. No conjunctival / lid redness or swelling. ENT: No external evidence of injury, swelling, or ecchymosis. Airway is patent. Throat is clear. NECK: Nontender. No swelling or evidence of injury. No subcutaneous emphysema. Trachea is midline. No thyroid mass. HEART: Regular rate and rhythm. Good peripheral pulses. LUNGS/CHEST: Breath sounds clear and equal bilaterally. No rales, rhonchi, or wheezes. No ecchymosis, subcutaneous emphysema, or tenderness. ABDOMEN: Abdomen soft without tenderness. No palpable masses or organomegaly. No peritoneal signs. No abdominal wall swelling or ecchymosis. EXTREMITIES: No extremity tenderness. Normal muscle tone and function. No thoracolumbar tenderness. NEUROLOGIC: Sensation is grossly intact. Cranial nerve exam reveals face is symmetrical, tongue is midline, speech is abnormal due to chronic condition. He shouldn't has a chronic myoclonic jerking of his extremities. SKIN: No abrasions or ecchymosis is noted. No induration or masses noted. PSYCHIATRIC: Alert and pleasant, conversive. Limitations: no limitations Course Vital Signs 08/15/17 08/15/17 08/15/17 19:07 19:55 20:05 Temperature 103.3 F H Pulse Rate 97 76 80 Respiratory 26 H Rate Blood Pressure 156/69 O2 Sat by Pulse 96 Oximetry Medical Decision Making - Medical Decision Making The patient was seen and examined. All diagnostics were reviewed. An IV is started and he is hydrated and also received Levaquin intravenously. A Osuna catheter is placed and a urinalysis does show significant evidence of urinary tract infection. His laboratory shows a significant leukocytosis as well. The chest x-ray shows significant resolution of previously identified infiltrate. He also received some Tylenol and some Toradol for his fever. He is feeling improved on recheck. It is felt as though he would benefit from admission to the hospital for continued treatment for his urinary tract infection and sepsis. He is agreeable to this plan. Case is discussed with Dr. Barnes and he is agreeable as well. - Lab Data Result diagrams: 08/15/17 19:23 08/15/17 19:23 Lab Results 08/15/17 08/15/17 08/15/17 Range/Units 19:23 19:23 19:23 WBC 21.0 H (3.8-10.6) k/uL RBC 4.55 (4.30-5.90) m/uL Hgb 13.4 (13.0-17.5) gm/dL Hct 40.2 (39.0-53.0) % MCV 88.3 (80.0-100.0) fL MCH 29.4 (25.0-35.0) pg MCHC 33.3 (31.0-37.0) g/dL RDW 15.9 H (11.5-15.5) % Plt Count 209 (150-450) k/uL Neutrophils % 86 % Lymphocytes % 5 % Monocytes % 6 % Eosinophils % 1 % Basophils % 0 % Neutrophils # 18.2 H (1.3-7.7) k/uL Lymphocytes # 1.1 (1.0-4.8) k/uL Monocytes # 1.3 H (0-1.0) k/uL Eosinophils # 0.2 (0-0.7) k/uL Basophils # 0.1 (0-0.2) k/uL PT (9.0-12.0) sec INR (<1.2) APTT (22.0-30.0) sec Sodium 134 L (137-145) mmol/L Potassium 4.9 (3.5-5.1) mmol/L Chloride 101 (98-107) mmol/L Carbon Dioxide 25 (22-30) mmol/L Anion Gap 8 mmol/L BUN 14 (9-20) mg/dL Creatinine 0.75 (0.66-1.25) mg/dL Est GFR (MDRD) Af Amer >60 (>60 ml/min/1.73 sqM) Est GFR (MDRD) Non-Af >60 (>60 ml/min/1.73 sqM) Glucose 126 H (74-99) mg/dL Plasma Lactic Acid Sam (0.7-2.0) mmol/L Calcium 8.8 (8.4-10.2) mg/dL Total Bilirubin 0.8 (0.2-1.3) mg/dL AST 62 H (17-59) U/L ALT 56 (21-72) U/L Alkaline Phosphatase 119 (38-126) U/L Total Creatine Kinase 61 (55-170) U/L CK-MB (CK-2) 0.2 (0.0-2.4) ng/mL CK-MB (CK-2) Rel Index 0.3 Troponin I <0.012 (0.000-0.034) ng/mL Total Protein 7.4 (6.3-8.2) g/dL Albumin 3.7 (3.5-5.0) g/dL Urine Color Urine Appearance (Clear) Urine pH (5.0-8.0) Ur Specific [place] (1.001-1.035) Urine Protein (Negative) Urine Glucose (UA) (Negative) Urine Ketones (Negative) Urine Blood (Negative) Urine Nitrite (Negative) Urine Bilirubin (Negative) Urine Urobilinogen (<2.0) mg/dL Ur Leukocyte Esterase (Negative) Urine RBC (0-5) /hpf Urine WBC (0-5) /hpf Urine WBC Clumps (None) /hpf Ur Squamous Epith Cells (0-4) /hpf Amorphous Sediment (None) /hpf Hyaline Casts (0-2) /lpf Urine Mucus (None) /hpf 08/15/17 08/15/17 08/15/17 Range/Units 19:23 19:23 19:40 WBC (3.8-10.6) k/uL RBC (4.30-5.90) m/uL Hgb (13.0-17.5) gm/dL Hct (39.0-53.0) % MCV (80.0-100.0) fL MCH (25.0-35.0) pg MCHC (31.0-37.0) g/dL RDW (11.5-15.5) % Plt Count (150-450) k/uL Neutrophils % % Lymphocytes % % Monocytes % % Eosinophils % % Basophils % % Neutrophils # (1.3-7.7) k/uL Lymphocytes # (1.0-4.8) k/uL Monocytes # (0-1.0) k/uL Eosinophils # (0-0.7) k/uL Basophils # (0-0.2) k/uL PT 11.2 (9.0-12.0) sec INR 1.1 (<1.2) APTT 24.0 (22.0-30.0) sec Sodium (137-145) mmol/L Potassium (3.5-5.1) mmol/L Chloride (98-107) mmol/L Carbon Dioxide (22-30) mmol/L Anion Gap mmol/L BUN (9-20) mg/dL Creatinine (0.66-1.25) mg/dL Est GFR (MDRD) Af Amer (>60 ml/min/1.73 sqM) Est GFR (MDRD) Non-Af (>60 ml/min/1.73 sqM) Glucose (74-99) mg/dL Plasma Lactic Acid Sam 1.5 (0.7-2.0) mmol/L Calcium (8.4-10.2) mg/dL Total Bilirubin (0.2-1.3) mg/dL AST (17-59) U/L ALT (21-72) U/L Alkaline Phosphatase (38-126) U/L Total Creatine Kinase (55-170) U/L CK-MB (CK-2) (0.0-2.4) ng/mL CK-MB (CK-2) Rel Index Troponin I (0.000-0.034) ng/mL Total Protein (6.3-8.2) g/dL Albumin (3.5-5.0) g/dL Urine Color Yellow Urine Appearance Cloudy (Clear) Urine pH 8.0 (5.0-8.0) Ur Specific [place] 1.016 (1.001-1.035) Urine Protein 2+ H (Negative) Urine Glucose (UA) Negative (Negative) Urine Ketones Negative (Negative) Urine Blood Moderate H (Negative) Urine Nitrite Negative (Negative) Urine Bilirubin Negative (Negative) Urine Urobilinogen <2.0 (<2.0) mg/dL Ur Leukocyte Esterase Large H (Negative) Urine RBC 87 H (0-5) /hpf Urine WBC >182 H (0-5) /hpf Urine WBC Clumps Many H (None) /hpf Ur Squamous Epith Cells 1 (0-4) /hpf Amorphous Sediment Occasional H (None) /hpf Hyaline Casts 5 H (0-2) /lpf Urine Mucus Rare H (None) /hpf Disposition Clinical Impression: Sepsis secondary to UTI, Leukocytosis, Hypertension, Cerebral palsy, Myoclonic jerking, Febrile illness, acute Disposition: ADMITTED IP TO THIS [facility] Condition: Fair Time of Disposition: 21:03 Decision Date: 08/15/17 Decision Time: 21:04
[2017-08-15] MEDS ORDERED: clonazePAM 1 MG TAB PO PRN (21:09)
[2017-08-15] MEDS ORDERED: POLYETHYLENE GLYCOL 3350 17 GM POWD.PACK PO PRN (21:09)
[2017-08-15] MEDS ORDERED: LACTULOSE 200 GM/300 ML (FROM 1/2 GAL JUG) PO PRN (21:09)
[2017-08-15] MEDS ORDERED: traMADol 50 MG TAB PO PRN (21:09)
[2017-08-15 23:21] VITALS: BMI 20.2
[2017-08-15] MEDS: NYSTATIN 100,000 UNIT/GM POWD 15 GM TOPICAL SCH (23:45)
[2017-08-16] MEDS: MENTHOL-ZINC OXIDE OINT 113 GM TUBE TOPICAL SCH ×3 (05:39→20:29)
[2017-08-16 06:52] LABS: Basophils # (A) 0.1 k/uL (0-0.2); Basophils % (A) 0 %; CHCM 31.8; Eosinophils # (A) 0.1 k/uL (0-0.7); Eosinophils % (A) 1 %; HCT 38.5 % (39.0-53.0); HDW 2.42; HGB 12.6 gm/dL (13.0-17.5); Luc # (Auto) 0.24; Luc % (Auto) 1; Lymphocytes # (A) 1.4 k/uL (1.0-4.8); Lymphocytes % (A) 8 %; MCH 29.9 pg (25.0-35.0); MCHC 32.7 g/dL (31.0-37.0); MCV 91.5 fL (80.0-100.0); Mean Platelet Volume 6.4; Monocytes % (A) 6 %; Neutrophils # (A) 14.4 k/uL (1.3-7.7); Neutrophils % (A) 84 %; RBC 4.21 m/uL (4.30-5.90); WBC 17.2 k/uL (3.8-10.6); WBC (Perox) 17.67
[2017-08-16 07:09] LABS: Anion Gap 7 mmol/L; Blood Urea Nitrogen 12 mg/dL (9-20); Calcium 8.4 mg/dL (8.4-10.2); Carbon Dioxide 24 mmol/L (22-30); Chloride 109 mmol/L (98-107); Glucose 82 mg/dL (74-99); Non-African American GFR(MDRD) >60 (>60 ml/min/1.73 sqM); Potassium 4.2 mmol/L (3.5-5.1); Sodium 140 mmol/L (137-145)
[2017-08-16] MEDS: ASPIRIN 325 MG TAB PO SCH ×2 (08:32→20:28)
[2017-08-16] MEDS: DOCUSATE 100 MG CAP PO SCH ×2 (08:32→20:28)
[2017-08-16] MEDS: ESCITALOPRAM 10 MG TAB PO SCH (08:33)
[2017-08-16] MEDS: CHOLECALCIFEROL 1,000 UNIT TAB PO SCH (08:33)
[2017-08-16] MEDS: ESCITALOPRAM 5 MG TAB PO SCH (08:33)
[2017-08-16] MEDS: LORATADINE 10 MG TAB PO SCH (08:34)
[2017-08-16] MEDS: PRIMIDONE 250 MG TAB PO SCH ×2 (08:34→20:29)
[2017-08-16] MEDS: ENOXAPARIN 40 MG/0.4 ML SYRINGE SQ SCH (08:34)
[2017-08-16] MEDS ORDERED: PANTOPRAZOLE 40 MG/10 ML VIAL IV SCH (09:00)
[2017-08-16] MEDS ORDERED: NON-FORMULARY DRUG (Ensure Clear 1 CAN) PO SCH (09:00)
[2017-08-16] MEDS: NYSTATIN 100,000 UNIT/GM POWD 15 GM TOPICAL SCH ×2 (09:37→20:29)
[2017-08-16] MEDS: PROPRANOLOL 20 MG TAB PO SCH ×2 (10:08→17:07)
--- NOTE | 2017-08-16 12:13 | CONS ---
CONSULTATION DATE OF SERVICE: 08/16/2017. REASON FOR CONSULTATION: A fever. HISTORY OF PRESENT ILLNESS: The patient is a 62 -year-old male, with past medical history significant for cerebral palsy, the patient did have a urinary retention requiring Osuna catheter with recent admission to this hospital for pneumonia. The patient was brought into the ER at [facility] last evening with chief complaints of fever. The patient was noticed to have fever of 103 degrees Fahrenheit. The patient did have a chest x-ray that was reported to be resolution of the previous noted right upper lobe infiltrate and small residual area remaining. Patient did have a white count of 21,000. The urine was significant positive more than 182 WBC. The patient was started on Levaquin at the hospital and ID was consulted for further recommendation regarding antibiotic therapy. The patient is not a very good historian as far as his symptomatology is concerned and did not complain of any specific symptoms. The patient does not have any open sores on his sacral or the heel area. No nausea. No vomiting. REVIEW OF SYSTEMS: Could not be reliably obtained. The positive points have been mentioned in the HPI. PAST MEDICAL HISTORY: Significant for cerebral palsy, Parkinson's disease, BPH, urinary retention requiring Osuna catheter, hypertension, osteoarthritis, gastroesophageal reflux disease, previous history of MRSA urinary tract infection and pneumonia. PAST SURGICAL HISTORY: Total right hip arthroplasty, left hip replacement, TURP and surgery. SOCIAL HISTORY: No history of smoking, drinking, or drug use. FAMILY HISTORY: Father history of NH, at age of 59. ALLERGIES: No known drug allergies. MEDICATION: Medications include the patient is currently on: 1. Tylenol. 2. Aspirin. 3. Vitamin D3. 4. Klonopin. 5. Colace. 6. Lovenox. 7. Lexapro. 8. Motrin. 9. Lactulose. 10.Narcan. 11.Mycostatin powder. 12.Zofran. 13.Protonix. 14.Inderal. 15.Flomax. 16.Ultram. EXAMINATION: Blood pressure is 129/55 with a pulse of 71, temperature 98.5, T-max 103, he is 96% on 3 L nasal cannula. General description is a middle aged male, lying in bed, in no distress. No tachypnea or accessory muscles of respiration use. HEENT examination no pallor or scleral icterus. Oral mucosa membranes dry. Neck trachea is central. No thyromegaly. LUNGS: Unlabored breathing. Decreased breath sounds at the bases. No wheeze. HEART: S1, S2. Regular rate and rhythm. Soft, no tenderness no guarding or rigidity. EXTREMITIES: No edema of feet. Skin examination especially the back area there is no evidence of any open wounds, heel with no pressure ulcer. Neurological: Patient is awake, alert, orientation could not be determined. LABS: Hemoglobin is 12.6, white count 17.2. Admission white count was 21,000 with a BUN of 12, creatinine 0.70. Urine with large leukocyte esterase with more than 1 to 2 WBC. Cultures currently pending. DIAGNOSTIC IMPRESSION AND PLAN: Patient admitted to the hospital with sepsis in a patient who did have a fever of 101 degrees Fahrenheit, with elevated white count 21,000, more than 90 meeting criteria for systemic inflammatory response syndrome, source is likely the urinary tract infection, underlying pneumonia not likely but not entirely excluded. PLAN: 1. We will continue the patient on Levaquin however at Rocephin 1 g daily. 2. Gentle IV fluids. 3. Depending upon the clinical response as well as cultures, will adjust antibiotic further if needed. Thank you for this consultation. Will follow this patient along with you. MMODL / IJN: [id number] /
[2017-08-16] MEDS: SODIUM CHLORIDE 0.9% 1,000 ML IV SCH (13:33)
--- NOTE | 2017-08-16 13:46 | HP ---
HISTORY AND PHYSICAL DATE OF ADMISSION: 08/15/2017 PRESENTING COMPLAINT: Fever. HISTORY OF PRESENTING COMPLAINT: This is a very pleasant, 62-year-old patient known to me from prior admissions. The patient's chronic stable medical conditions include cerebral palsy with associated myoclonic jerks, GERD, hypertension, osteoarthritis, and BPH. The patient not too long ago was in the hospital with multilobar pneumonia. At baseline, the patient has got a lot of myoclonic jerks. The patient presents with high grade fever, sepsis-like picture with infected appearing urine. Started on IV Levaquin and ceftriaxone. The patient normally is able to make urine on his own. Denies any cough or shortness of breath. The patient had a Osuna catheter placed in the ER, in the urine sample. REVIEW OF SYSTEMS: CONSTITUTIONAL: Febrile, tired HEENT: None. RESPIRATORY: None. CARDIOVASCULAR: None. GASTROINTESTINAL: None. GENITOURINARY: Osuna catheter. MUSCULOSKELETAL: Pain in the joints. DERMATOLOGICAL: None. HEMATOLOGIC: None. LYMPHATIC: None. PSYCHIATRY: Some anxiety. NEUROLOGICAL: Cerebral palsy with baseline tremors and jerky movements. PAST MEDICAL HISTORY: GERD, hypertension, osteoarthritis, BPH, cerebral palsy with myoclonic jerks. PAST SURGICAL HISTORY: Joint replacement, prostate surgery, right hip arthroplasty. Left hip replacement, hand tendon surgery. PSYCH HISTORY: Depression and suicide attempt in 2012. SOCIAL HISTORY: The patient is a resident of [facility]. Uses a wheelchair. Needs help with ADLs. No smoking. Drinks beer occasionally. FAMILY HISTORY: Noncontributory to presentation. ALLERGIES: None. HOME MEDICATIONS: 1. Lactulose 10 grams p.o. b.i.d. p.r.n. 2. Ultram 100 mg p.o. q.6 p.r.n. 3. Calmoseptine topical q.12. 4. Tylenol 650 mg q.6 p.r.n. 5. Klonopin 1 mg p.o. t.i.d. p.r.n. 6. Inderal 20 mg p.o. b.i.d. 7. Mysoline 250 mg p.o. b.i.d. 8. Colace 100 mg b.i.d. 9. Vitamin D3, 1000 units p.o. daily. 10.Aspirin 325 p.o. b.i.d. 11.Flomax 0.8 mg p.o. q.h.s. 12.MiraLAX 17 grams p.o. daily p.r.n. 13.Melatonin 10 mg p.o. q.h.s. 14.Lexapro 5 mg p.o. daily. 15.Claritin 10 mg p.o. daily. 16.Lexapro 10 mg p.o. daily. 17.Ensure Clear 1 can p.o. daily. A. PHYSICAL EXAMINATION: On examination, vital signs on presentation, temperature 103.3, pulse 97, respiratory 26, blood pressure 156/69, pulse ox 96% on 5 L. GENERAL APPEARANCE: Sitting up on a chair. Somewhat anxious with jerky movements. EYES: Pupils equal. Conjunctivae normal. HEENT: Oral cavity normal. NECK: JVD not raised. Mass not palpable. RESPIRATORY: Effort normal. LUNGS: Clear. CARDIOVASCULAR: First and second sounds normal. No edema. ABDOMEN: Soft, nontender. Liver and spleen not palpable. LYMPHATIC: No lymph node palpable in the neck and axillae. PSYCHIATRY: Patient is able to answer questions. NEUROLOGICAL: Generalized myoclonic jerks. INVESTIGATIONS: White count 21, hemoglobin 13.4. Potassium 3.9. BUN and creatinine normal. UA positive for leukocyte esterase, WBC. ASSESSMENT: 1. Acute severe urinary tract infection causing sepsis, present on admission. 2. Cerebral palsy with associated myoclonic jerks at baseline. 3. Gastroesophageal reflux disease. 4. Essential hypertension. 5. Primary osteoarthritis multiple joints. 6. BPH. PLAN: Patient will be put on IV Levaquin, ceftriaxone was added per ID. Home medications are resumed. Care was discussed with the patient. Will DC patient's Osuna catheter. Also give patient IV fluids. The patient needs feeding assistance. MMODL / IJN: [id number] /
[2017-08-16] MEDS ORDERED: LEVOFLOXACIN 750MG-D5W PMX 750 MG in DEXTROSE/WATER 1 150ML.BAG IVPB SCH (20:00)
[2017-08-16] MEDS: MELATONIN 5 MG TABLET PO SCH (20:28)
[2017-08-16] MEDS: TAMSULOSIN 0.4 MG CAP.ER.24H PO SCH (20:29)
[2017-08-17] MEDS: SODIUM CHLORIDE 0.9% 1,000 ML IV SCH ×2 (00:06→09:26)
[2017-08-17 08:06] LABS: Basophils % (A) 0 %; CH 29.5; CHCM 32.7; Eosinophils # (A) 0.5 k/uL (0-0.7); Eosinophils % (A) 4 %; HCT 36.8 % (39.0-53.0); HGB 12.2 gm/dL (13.0-17.5); Luc # (Auto) 0.27; Luc % (Auto) 2; Lymphocytes # (A) 1.5 k/uL (1.0-4.8); Lymphocytes % (A) 12 %; MCH 30.1 pg (25.0-35.0); MCHC 33.2 g/dL (31.0-37.0); MCV 90.5 fL (80.0-100.0); Mean Platelet Volume 6.9; Monocytes # (A) 0.7 k/uL (0-1.0); Monocytes % (A) 5 %; Neutrophils # (A) 9.7 k/uL (1.3-7.7); Neutrophils % (A) 77 %; RBC 4.07 m/uL (4.30-5.90); RDW 15.1 % (11.5-15.5); WBC 12.6 k/uL (3.8-10.6)
[2017-08-17 08:16] LABS: Anion Gap 9 mmol/L; Blood Urea Nitrogen 10 mg/dL (9-20); Calcium 8.6 mg/dL (8.4-10.2); Carbon Dioxide 25 mmol/L (22-30); Chloride 109 mmol/L (98-107); Glucose 80 mg/dL (74-99); Non-African American GFR(MDRD) >60 (>60 ml/min/1.73 sqM); Potassium 4.3 mmol/L (3.5-5.1); Sodium 143 mmol/L (137-145)
[2017-08-17] MEDS: PROPRANOLOL 20 MG TAB PO SCH ×2 (08:29→16:48)
[2017-08-17] MEDS: PRIMIDONE 250 MG TAB PO SCH ×2 (08:38→21:51)
[2017-08-17] MEDS: ASPIRIN 325 MG TAB PO SCH ×2 (08:38→21:50)
[2017-08-17] MEDS: PANTOPRAZOLE 40 MG TABLET PO SCH (08:38)
[2017-08-17] MEDS: CHOLECALCIFEROL 1,000 UNIT TAB PO SCH (08:38)
[2017-08-17] MEDS: DOCUSATE 100 MG CAP PO SCH ×2 (08:38→21:51)
[2017-08-17] MEDS: ENOXAPARIN 40 MG/0.4 ML SYRINGE SQ SCH (08:38)
[2017-08-17] MEDS: ESCITALOPRAM 5 MG TAB PO SCH (08:38)
[2017-08-17] MEDS: NYSTATIN 100,000 UNIT/GM POWD 15 GM TOPICAL SCH ×2 (08:38→21:51)
[2017-08-17] MEDS: ESCITALOPRAM 10 MG TAB PO SCH (08:38)
[2017-08-17] MEDS: LORATADINE 10 MG TAB PO SCH (08:38)
[2017-08-17] MEDS: MENTHOL-ZINC OXIDE OINT 113 GM TUBE TOPICAL SCH ×2 (08:39→21:51)
--- NOTE | 2017-08-17 15:14 | P.PN ---
Progress Note - Text DATE OF SERVICE: 08/17/2017 PRESENTING COMPLAINT: Fever HISTORY OF PRESENT ILLNESS: 62-year-old male with myoclonic jerking at baseline, presented with high-grade fever, sepsis-like picture infected appearing urine. IV antibiotics of Levaquin and ceftriaxone initiated. Patient admitted for UTI. Patient is a resident of [facility]. INTERVAL HISTORY: 08/17/2017: Afebrile, Lying in bed has some myoclonic jerking, pale-appearing able to answer simple straightforward questions, tolerating his diet requires assistance to get into the chair uses a wheelchair at baseline, last BM 2016. REVIEW OF SYSTEMS: Done for constitutional ,cardiovascular, GI, pulmonary with relevant findings as above. CURRENT MEDICATIONS Ceftriaxone 1000 mg in 50 mL, Klonopin 1 mg by mouth 3 times a day anxiety, Lexapro 5 mg by mouth daily, Lexapro 10 mg by mouth daily at 9:00 AM. Lactulose 10 g by mouth daily for constipation. Levofloxacin 750 mg by mouth every 24 hours, propranolol 20 mg by mouth twice a day. Tamsulosin 0.8 mg by mouth daily at bedtime. PHYSICAL EXAM VITAL SIGNS: Temperature 97.8, pulse 71, respiratory rate 18, blood pressure 112/68, oxygen saturation 97% on 3 L. GENERAL APPEARANCE: Lying in bed, some mild myoclonic jerking noted appears comfortable. EYES: Pupils equal. Conjunctiva normal. NECK: JVD not raised. Mass not palpable. RESPIRATORY: Respiratory effort normal. Lungs clear to auscultation. CARDIOVASCULAR: First and second sounds normal. No edema. ABDOMEN: Soft. Liver and spleen not palpable. No tenderness. No mass palpable. PSYCHIATRY: Alert and oriented x3. Mood and affect normal. NEUROLOGICAL: Generalized myoclonic jerks INVESTIGATIONS: White blood cell count 12.6 Urine culture: Pulmonary results: Gram-negative bacilli ASSESSMENT: -Acute severe urinary tract infection causing sepsis, present on admission, improving -Cerebral palsy with associated myoclonic jerks at baseline. -Gastroesophageal reflux disease. -Essential hypertension. -Primary breast arthritis multiple joints. -Benign prostatic hypertrophy. PLAN: Continue IV antibiotics, await additional input from infectious disease. Plan of care discussed with patient the bedside. Discharge planning next 24-48 hours back to [facility]. We'll follow closely. ALUMINUM POOL INSTALLER statement: Patient was seen and examined by nurse practitioner Liss Earl and all elements of the case discussed with attending Dr. Barnes
--- NOTE | 2017-08-17 17:48 | PN ---
PROGRESS NOTE DATE OF SERVICE: 08/17/2017. REASON FOR FOLLOW UP: Urinary tract infection. INTERVAL HISTORY: The patient is afebrile. Has been breathing comfortably. Denies any chest pain, shortness of breath. No cough. No abdominal pain. No diarrhea. The Osuna catheter has been discontinued and the patient does have some incontinence but no retention per the RN. EXAMINATION: Blood pressure is 124/68 with a pulse of 71, temperature 97.8. He is 97% on 3- L nasal cannula. General description is a middle aged male, lying in bed, in no distress. RESPIRATORY SYSTEM: Unlabored breathing. Clear to auscultation anteriorly. HEART: S1, S2. Regular rate and rhythm. ABDOMEN: Soft, no tenderness. LABS: Hemoglobin 12.2, white count 12.6 with a BUN of 10, creatinine 0.72. Urine showing gram- negative. Blood culture negative. DIAGNOSTIC IMPRESSION AND PLAN: Patient with hospital sepsis, source likely urinary with urine showing gram-negative currently covered with Rocephin. That will be continued while waiting for the culture to finalize to determine the discharge antibiotic. MMODL / IJN: [id number] /
--- NOTE | 2017-08-17 18:18 | PN ---
PROGRESS NOTE DATE OF SERVICE: 08/17/2017 ATTENDING NOTE: This patient seen examined by me. I discussed with my nurse practitioner, Ms. Earl. This patient was admitted with UTI and sepsis, feeling better today. Myoclonic jerking is going on. EXAMINATION: Afebrile. LUNGS: Clear. CARDIOVASCULAR: First and second sounds normal. INVESTIGATIONS: Urine culture is growing gram-negative bacilli. White count 12.6. ASSESSMENT: Acute severe UTI causing sepsis, present on admission. Clinically improving. PLAN: Continue with IV ceftriaxone. Awaiting cultures. Continue with IV fluids. MMODL / IJN: [id number] /
[2017-08-17] MEDS ORDERED: LEVOFLOXACIN 750 MG TAB PO SCH (20:00)
[2017-08-17] MEDS: TAMSULOSIN 0.4 MG CAP.ER.24H PO SCH (21:51)
[2017-08-17] MEDS: MELATONIN 5 MG TABLET PO SCH (21:51)
[2017-08-18] MEDS: SODIUM CHLORIDE 0.9% 1,000 ML IV SCH ×2 (02:02→06:43)
[2017-08-18 08:35] LABS: Anion Gap 15 mmol/L; Blood Urea Nitrogen 15 mg/dL (9-20); Calcium 8.8 mg/dL (8.4-10.2); Carbon Dioxide 19 mmol/L (22-30); Chloride 108 mmol/L (98-107); Glucose 91 mg/dL (74-99); Non-African American GFR(MDRD) >60 (>60 ml/min/1.73 sqM); Potassium 4.1 mmol/L (3.5-5.1); Sodium 142 mmol/L (137-145)
[2017-08-18] MEDS: NYSTATIN 100,000 UNIT/GM POWD 15 GM TOPICAL SCH (09:00)
[2017-08-18] MEDS: MENTHOL-ZINC OXIDE OINT 113 GM TUBE TOPICAL SCH (09:00)
[2017-08-18] MEDS: PANTOPRAZOLE 40 MG TABLET PO SCH (09:22)
[2017-08-18] MEDS: PROPRANOLOL 20 MG TAB PO SCH (09:22)
[2017-08-18] MEDS: CHOLECALCIFEROL 1,000 UNIT TAB PO SCH (09:22)
[2017-08-18] MEDS: ESCITALOPRAM 5 MG TAB PO SCH (09:22)
[2017-08-18] MEDS: ENOXAPARIN 40 MG/0.4 ML SYRINGE SQ SCH (09:22)
[2017-08-18] MEDS: PRIMIDONE 250 MG TAB PO SCH (09:22)
[2017-08-18] MEDS: ASPIRIN 325 MG TAB PO SCH (09:23)
[2017-08-18] MEDS: ESCITALOPRAM 10 MG TAB PO SCH (09:23)
[2017-08-18] MEDS: LORATADINE 10 MG TAB PO SCH (09:23)
[2017-08-18 10:34] VITALS: RESP 15
[2017-08-18] MEDS: DOCUSATE 100 MG CAP PO SCH (11:21)
[2017-08-18] MEDS ORDERED: CIPROFLOXACIN HCL 500 MG TAB PO SCH (13:15)
--- NOTE | 2017-08-18 15:04 | DS ---
DISCHARGE SUMMARY DATE OF ADMISSION: 08/15/2017. DATE OF DISCHARGE: 08/18/2017 FINAL DIAGNOSES: 1. Acute severe urinary tract infection from Pseudomonas causing sepsis present on admission. 2. Cerebral palsy with associated myoclonic jerks at baseline. 3. Gastroesophageal reflux disease. 4. Essential hypertension. 5. Primary osteoarthritis of multiple joints. 6. Benign prostatic hypertrophy. HOSPITAL COURSE: The patient presented with sepsis from UTI. Cultures did grow Pseudomonas. The patient back to baseline. Afebrile. White count has come down nicely before discharge. The patient at baseline has myoclonic jerks. CONSULTATIONS: Dr. Wu from Infectious Disease. EXAMINATION: Lungs are clear. Cardiovascular: First and second sounds are normal. Myoclonic jerks. DC MEDICATIONS: 1. Aspirin 325 p.o. b.i.d. 2. Vitamin D3 1000 units p.o. daily. 3. Lexapro 10 mg p.o. daily. 4. 10 mg p.o. daily. 5. Calmoseptine ointment topical q.12. 6. MiraLAX 17 g p.o. daily p.r.n. 7. Inderal 20 mg p.o. b.i.d. 8. Flomax 0.8 mg p.o. q.h.s. 9. Lexapro 5 mg p.o. daily. 10.Melatonin 10 mg p.o. q.h.s. 11.Tylenol 650 mg p.o. q.6 p.r.n. 12.Mysoline 250 mg p.o. b.i.d. 13.Ensure Clear 1 can p.o. b.i.d. 14.Lactulose 10 grams p.o. b.i.d. p.r.n. 15.Cipro 500 mg p.o. b.i.d., 14 tablets. 16.Mycostatin topical b.i.d. 17.Klonopin 1 mg p.o. t.i.d. p.r.n. 18.Ultram 100 mg p.o. q.6 p.r.n. DISPOSITION: ECF Follow with Dr. Morrissey. MMODL / IJN: [id number] /
[2017-08-18 15:26] VITALS: BP 125/85; PULSE 85; TEMP 97.2
--- NOTE | 2017-08-18 15:31 | PN ---
PROGRESS NOTE DATE OF SERVICE: 08/18/2017. REASON FOR FOLLOWUP: Pseudomonas urinary tract infection. INTERVAL HISTORY: The patient is afebrile. Has been breathing comfortably. Denies any chest pain, shortness of breath and no abdominal pain. No diarrhea. EXAMINATION: Blood pressure 127/88 with a pulse of 90. Temperature 98.6. General description is a middle aged male up in the bed in no distress. RESPIRATORY SYSTEM: Unlabored breathing. Clear to auscultation anteriorly. HEART: S1, S2. Regular rate and rhythm. ABDOMEN: Soft, no tenderness. LABS: finalized with Pseudomonas which is sensitive with Ciprofloxacin. DIAGNOSTIC IMPRESSION AND PLAN: Patient with Pseudomonas urinary tract infection. The patient will finish therapy with p.o. Cipro. He did improve on Levaquin. Rocephin will be discontinued. Continue supportive care. MMARABELLAL / MICHAELLEN: [id number] /
== END 2017-08-18 18:20 | DRG 872 ==
LOC: EC 18:59 → 3SUR 21:05
PROVIDERS: ADMIT Hospitalist; ATTEND Hospitalist
DX: A41.9 Sepsis, unspecified organism (principal); G20 Parkinson's disease; N39.0 Urinary tract infection, site not specified; G25.3 Myoclonus; B96.5 Pseudomonas (aeruginosa) (mallei) (pseudomallei) as the cause of diseases classified elsewhere; I10 Essential (primary) hypertension; G80.9 Cerebral palsy, unspecified; Z66 Do not resuscitate; N40.1 Benign prostatic hyperplasia with lower urinary tract symptoms; R33.8 Other retention of urine; R32 Unspecified urinary incontinence; M19.91 Primary osteoarthritis, unspecified site; K21.9 Gastro-esophageal reflux disease without esophagitis; F32.9 Major depressive disorder, single episode, unspecified; Z79.82 Long term (current) use of aspirin; Z99.3 Dependence on wheelchair; Z79.899 Other long term (current) drug therapy; Z86.14 Personal history of Methicillin resistant Staphylococcus aureus infection; Z96.643 Presence of artificial hip joint, bilateral
CPT/HCPCS: 36415; 51702; 71020; 80048; 80053; 81001; 82550; 82553; 83605; 84484; 85025; 85610; 85730; 87040; 87077; 87086; 87186; 94640; 96361; 96365; 96375; 99284

== ENCOUNTER → 2018-02-02 | Outpatient (CLI) | payer MEDICARE, OTHER ==
--- NOTE | 2018-02-02 11:53 | FL ---
COMPARISON: NONE DATE OF EXAM: 02/02/2018 HISTORY: Dysphasia A number of thin and thick substances were ingested under the care of the department of speech pathol ogy. There is no evidence of aspiration or penetration. There is no evidence of obstruction. 59 se conds of fluoroscopy time. IMPRESSION: 1. No evidence of aspiration or penetration.
== END | disposition home or self-care (01) ==
LOC: RADFLMAIN 09:56
PROVIDERS: ATTEND Family Medicine
DX: R13.12 Dysphagia, oropharyngeal phase (principal)
CPT/HCPCS: 74230

== ENCOUNTER 2018-02-09 23:45 | Inpatient (IN) | payer MEDICARE, OTHER ==
[2018-02-10 00:29] LABS: Basophils # (A) 0.1 k/uL (0-0.2); Basophils % (A) 1 %; Eosinophils % (A) 1 %; HCT 40.6 % (39.0-53.0); HGB 14.3 gm/dL (13.0-17.5); Lymphocytes # (A) 0.7 k/uL (1.0-4.8); Lymphocytes % (A) 12 %; MCH 30.7 pg (25.0-35.0); MCHC 35.3 g/dL (31.0-37.0); MCV 87.1 fL (80.0-100.0); Mean Platelet Volume 6.5; Monocytes # (A) 0.6 k/uL (0-1.0); Monocytes % (A) 11 %; Neutrophils # (A) 4.1 k/uL (1.3-7.7); Neutrophils % (A) 73 %; Platelet Count 181 k/uL (150-450); RBC 4.66 m/uL (4.30-5.90); RDW 13.5 % (11.5-15.5); WBC 5.6 k/uL (3.8-10.6)
[2018-02-10] MEDS ORDERED: IBUPROFEN IV 600 MG in SODIUM CHLORIDE 0.9% 250 ML IV STA (00:36)
[2018-02-10 00:40] LABS: ALT 32 U/L (21-72); AST 30 U/L (17-59); Albumin 3.6 g/dL (3.5-5.0); Alkaline Phosphatase 140 U/L (38-126); Amylase 73 U/L (30-110); Anion Gap 9 mmol/L; Blood Urea Nitrogen 18 mg/dL (9-20); Calcium 8.8 mg/dL (8.4-10.2); Carbon Dioxide 26 mmol/L (22-30); Chloride 102 mmol/L (98-107); Glucose 110 mg/dL (74-99); Lipase 95 U/L (23-300); Potassium 3.9 mmol/L (3.5-5.1); Sodium 137 mmol/L (137-145); Total Bilirubin 0.3 mg/dL (0.2-1.3); Total Protein 6.9 g/dL (6.3-8.2)
[2018-02-10] MEDS: SODIUM CHLORIDE 0.9% 500 ML IV SCH ×4 (00:44→02:34)
[2018-02-10 00:54] LABS: INR 1.2 (<1.2); Partial Thromboplastin Time 24.5 sec (22.0-30.0); Prothrombin Time 11.1 sec (9.0-12.0)
[2018-02-10 01:10] LABS: Creatine Kinase 75 U/L (55-170)
--- NOTE | 2018-02-10 01:12 | XR ---
EXAMINATION TYPE: XR chest 2V DATE OF EXAM: 02/10/2018 COMPARISON: 08/15/2017 HISTORY: Nausea and vomiting TECHNIQUE: Frontal and lateral views of the chest are obtained. FINDINGS: There is coarsening of interstitial pulmonary markings. There are old left-sided healed ri b fractures. There are old right-sided healed rib fractures. There is no gross heart failure. Heart a ppears enlarged. Thoracic aorta is atheromatous. There are chest leads. There is osteopenia. IMPRESSION: Cardiomegaly. Pulmonary fibrotic changes. There is clearing of right upper lobe pneumoni a compared to old exam. No gross heart failure.
[2018-02-10 01:20] LABS: Amorphous Sediment,Urine Rare /hpf; Appearance,Urine Cloudy (Clear); Bilirubin,Urine Negative (Negative); Blood,Urine Small (Negative); Color,Urine Yellow; Glucose,Urine (UA) Negative (Negative); Ketones,Urine 1+ (Negative); Leukocyte Esterase,Urine Negative (Negative); Mucus,Urine Rare /hpf; Nitrite,Urine Negative (Negative); Protein,Urine Trace (Negative); RBC,Urine 28 /hpf (0-5); Specific Gravity,Urine 1.014 (1.001-1.035); Urobilinogen,Urine <2.0 mg/dL (<2.0); WBC,Urine 22 /hpf (0-5)
[2018-02-10 01:23] LABS: Creatine Kinase MB 0.3 ng/mL (0.0-2.4); Troponin I <0.012 ng/mL (0.000-0.034)
--- NOTE | 2018-02-10 01:45 | ED ---
Nausea/Vomiting/Diarrhea HPI - General Chief complaint: Nausea/Vomiting/Diarrhea Stated complaint: Nausea/Vomiting Time Seen by Provider: 02/10/18 00:09 Source: patient, EMS, RN notes reviewed, old records reviewed Mode of arrival: EMS Limitations: no limitations - History of Present Illness Initial comments: This patient is 62-year-old male with a history of cerebral palsy presents emergency Department chief complaint of fevers, nausea vomiting for one day. Patient reports that after he was being fed too fast he started to aspirate and choke. This fever started. He states that happen today. Patient states that he does not feel nauseated at this time upon arrival. He was given Tylenol at his assisted living facility prior to arrival. He lives at [facility] on [facility]. Patient denies any specific chest pain or shortness of breath. He reports that he has been coughing. - Related Data Home Medications Medication Instructions Recorded Confirmed Aspirin 325 mg PO BID 09/18/16 08/15/17 Cholecalciferol [Vitamin D3] 1,000 unit PO DAILY@0900 09/18/16 08/15/17 Escitalopram [Lexapro] 10 mg PO DAILY@0900 09/18/16 08/15/17 Loratadine [Claritin] 10 mg PO DAILY@0900 09/18/16 08/15/17 Menthol/Zinc Oxide [Calmoseptine 1 applic TOPICAL Q12H 09/18/16 08/15/17 Ointment] Polyethylene Glycol 3350 [Miralax] 17 gm PO DAILY PRN 09/18/16 08/15/17 Propranolol [Inderal] 20 mg PO BID@0900,1700 09/18/16 08/15/17 Tamsulosin HCl [Flomax] 0.8 mg PO HS@2100 09/18/16 08/15/17 Escitalopram [Lexapro] 5 mg PO DAILY@0900 07/02/17 08/15/17 Melatonin 10 mg PO HS@2100 07/02/17 08/15/17 Ensure Clear 1 can PO DAILY 08/15/17 08/15/17 Lactulose 10 gm PO BID PRN 08/15/17 08/15/17 Previous Rx's Medication Instructions Recorded Acetaminophen Tab [Tylenol] 650 mg PO Q6HR PRN tab 07/13/17 Primidone [Mysoline] 250 mg PO BID tab 07/13/17 Ciprofloxacin HCl [Cipro] 500 mg PO BID #14 tab 08/18/17 Nystatin 100,000 Unit/gm Powd 1 applic TOPICAL BID dose 08/18/17 [Mycostatin Powder] clonazePAM [KlonoPIN] 1 mg PO TID PRN #10 tab 08/18/17 traMADol HCl [Ultram] 100 mg PO Q6HR PRN #20 tab 08/18/17 Allergies Allergy/AdvReac Type Severity Reaction Status Date / Time No Known Allergies Allergy Verified 02/09/18 23:55 Review of Systems ROS Statement: Those systems with pertinent positive or pertinent negative responses have been documented in the HPI. ROS Other: All systems not noted in ROS Statement are negative. Past Medical History Past Medical History: Prostate Disorder Additional Past Medical History / Comment(s): Cerebral palsy, parkinsonian features, BPH, hypertension, osteoarthritis, acid reflux History of Any Multi-Drug Resistant Organisms: MRSA Date of last positivie culture/infection: 10/01/16 MDRO Source:: URINE Past Surgical History: Joint Replacement, Orthopedic Surgery, Prostate Surgery Additional Past Surgical History / Comment(s): 01/18/16 Total R hip arthroplasty. Other surgeries: LT HIP REPLACEMENT, TURP, hand tendon surg. Past Anesthesia/Blood Transfusion Reactions: No Reported Reaction Past Psychological History: Depression Smoking Status: Never smoker Past Alcohol Use History: None Reported Past Drug Use History: None Reported - Past Family History Mother Family Medical History: No Reported History Additional Family Medical History / Comment(s): Mother is healthy and is 91 yrs old. Father Family Medical History: Myocardial Infarction ([place]) Additional Family Medical History / Comment(s): Father at age 59. He had several NV's. General Exam - General Exam Comments Initial Comments: 62-year-old male. He appears to be very thin and frail. Patient has chronic tremors. Limitations: no limitations General appearance: alert Head exam: Present: atraumatic, normocephalic, normal inspection Eye exam: Present: normal appearance, PERRL, EOMI. Absent: scleral icterus, conjunctival injection, periorbital swelling ENT exam: Present: normal exam, mucous membranes moist Neck exam: Present: normal inspection. Absent: tenderness, meningismus, lymphadenopathy Respiratory exam: Present: decreased breath sounds, other (Cough noted). Absent : normal lung sounds bilaterally, respiratory distress, wheezes, rales, rhonchi , stridor Cardiovascular Exam: Present: regular rate, normal rhythm, normal heart sounds. Absent: systolic murmur, diastolic murmur, rubs, gallop, clicks GI/Abdominal exam: Present: soft, normal bowel sounds. Absent: distended, tenderness, guarding, rebound, rigid Extremities exam: Present: normal inspection, full ROM, normal capillary refill , other (Contracted left hand.). Absent: tenderness, pedal edema, joint swelling, calf tenderness Back exam: Present: normal inspection Neurological exam: Present: alert Psychiatric exam: Present: normal affect Course Vital Signs 02/09/18 02/10/18 02/10/18 23:53 00:37 01:49 Temperature 100.5 F H 99.1 F Pulse Rate 88 73 66 Respiratory 20 20 16 Rate Blood Pressure 134/99 129/69 121/62 O2 Sat by Pulse 95 95 95 Oximetry Medical Decision Making - Medical Decision Making This is a 62-year-old male with history of cerebral palsy presents with nausea and vomiting and fever. He reports no abdominal pain. He stated this occurred after he likely aspirated out while he was being fed too fast. Patient states that he has been coughing. Cough is been some mildly productive. On exam patient appears very ill and frail. He does have a history of cervical palsies that there are contractures noted in his extremities. Patient will was diaphoretic when he came in. Patient was given IV fluids labwork obtained. Sepsis protocol initiated. Patient's white blood cell count is within normal limits. Lactic acid was negative. His x-ray shows clearing of previous pneumonia. His urinalysis does show many white blood cells and red blood cells. He'll does with a straight cath. At this time with patient's continuing coughing, decreased physical status post or rub [place], and questionable. Her x-ray films muscular the patient for observation for IV fluids and monitoring. I started the patient on Levaquin. - Lab Data Result diagrams: 02/10/18 00:20 02/10/18 00:20 Lab Results 02/10/18 02/10/18 02/10/18 Range/Units 00:20 00:20 00:20 WBC 5.6 (3.8-10.6) k/uL RBC 4.66 (4.30-5.90) m/uL Hgb 14.3 (13.0-17.5) gm/dL Hct 40.6 (39.0-53.0) % MCV 87.1 (80.0-100.0) fL MCH 30.7 (25.0-35.0) pg MCHC 35.3 (31.0-37.0) g/dL RDW 13.5 (11.5-15.5) % Plt Count 181 (150-450) k/uL Neutrophils % 73 % Lymphocytes % 12 % Monocytes % 11 % Eosinophils % 1 % Basophils % 1 % Neutrophils # 4.1 (1.3-7.7) k/uL Lymphocytes # 0.7 L (1.0-4.8) k/uL Monocytes # 0.6 (0-1.0) k/uL Eosinophils # 0.0 (0-0.7) k/uL Basophils # 0.1 (0-0.2) k/uL PT (9.0-12.0) sec INR (<1.2) APTT (22.0-30.0) sec Sodium 137 (137-145) mmol/L Potassium 3.9 (3.5-5.1) mmol/L Chloride 102 (98-107) mmol/L Carbon Dioxide 26 (22-30) mmol/L Anion Gap 9 mmol/L BUN 18 (9-20) mg/dL Creatinine 0.70 (0.66-1.25) mg/dL Est GFR (CKD-EPI)AfAm >90 (>60 ml/min/1.73 sqM) Est GFR (CKD-EPI)NonAf >90 (>60 ml/min/1.73 sqM) Glucose 110 H (74-99) mg/dL Plasma Lactic Acid Sam 0.8 (0.7-2.0) mmol/L Calcium 8.8 (8.4-10.2) mg/dL Total Bilirubin 0.3 (0.2-1.3) mg/dL AST 30 (17-59) U/L ALT 32 (21-72) U/L Alkaline Phosphatase 140 H (38-126) U/L Total Creatine Kinase (55-170) U/L CK-MB (CK-2) (0.0-2.4) ng/mL CK-MB (CK-2) Rel Index Troponin I (0.000-0.034) ng/mL Total Protein 6.9 (6.3-8.2) g/dL Albumin 3.6 (3.5-5.0) g/dL Amylase 73 (30-110) U/L Lipase 95 (23-300) U/L Urine Color Urine Appearance (Clear) Urine pH (5.0-8.0) Ur Specific [place] (1.001-1.035) Urine Protein (Negative) Urine Glucose (UA) (Negative) Urine Ketones (Negative) Urine Blood (Negative) Urine Nitrite (Negative) Urine Bilirubin (Negative) Urine Urobilinogen (<2.0) mg/dL Ur Leukocyte Esterase (Negative) Urine RBC (0-5) /hpf Urine WBC (0-5) /hpf Amorphous Sediment (None) /hpf Urine Mucus (None) /hpf 02/10/18 02/10/18 02/10/18 Range/Units 00:20 00:20 01:00 WBC (3.8-10.6) k/uL RBC (4.30-5.90) m/uL Hgb (13.0-17.5) gm/dL Hct (39.0-53.0) % MCV (80.0-100.0) fL MCH (25.0-35.0) pg MCHC (31.0-37.0) g/dL RDW (11.5-15.5) % Plt Count (150-450) k/uL Neutrophils % % Lymphocytes % % Monocytes % % Eosinophils % % Basophils % % Neutrophils # (1.3-7.7) k/uL Lymphocytes # (1.0-4.8) k/uL Monocytes # (0-1.0) k/uL Eosinophils # (0-0.7) k/uL Basophils # (0-0.2) k/uL PT 11.1 (9.0-12.0) sec INR 1.2 H (<1.2) APTT 24.5 (22.0-30.0) sec Sodium (137-145) mmol/L Potassium (3.5-5.1) mmol/L Chloride (98-107) mmol/L Carbon Dioxide (22-30) mmol/L Anion Gap mmol/L BUN (9-20) mg/dL Creatinine (0.66-1.25) mg/dL Est GFR (CKD-EPI)AfAm (>60 ml/min/1.73 sqM) Est GFR (CKD-EPI)NonAf (>60 ml/min/1.73 sqM) Glucose (74-99) mg/dL Plasma Lactic Acid Sam (0.7-2.0) mmol/L Calcium (8.4-10.2) mg/dL Total Bilirubin (0.2-1.3) mg/dL AST (17-59) U/L ALT (21-72) U/L Alkaline Phosphatase (38-126) U/L Total Creatine Kinase 75 (55-170) U/L CK-MB (CK-2) 0.3 (0.0-2.4) ng/mL CK-MB (CK-2) Rel Index 0.4 Troponin I <0.012 (0.000-0.034) ng/mL Total Protein (6.3-8.2) g/dL Albumin (3.5-5.0) g/dL Amylase (30-110) U/L Lipase (23-300) U/L Urine Color Yellow Urine Appearance Cloudy (Clear) Urine pH 7.0 (5.0-8.0) Ur Specific [place] 1.014 (1.001-1.035) Urine Protein Trace H (Negative) Urine Glucose (UA) Negative (Negative) Urine Ketones 1+ H (Negative) Urine Blood Small H (Negative) Urine Nitrite Negative (Negative) Urine Bilirubin Negative (Negative) Urine Urobilinogen <2.0 (<2.0) mg/dL Ur Leukocyte Esterase Negative (Negative) Urine RBC 28 H (0-5) /hpf Urine WBC 22 H (0-5) /hpf Amorphous Sediment Rare H (None) /hpf Urine Mucus Rare H (None) /hpf 02/10/18 02:14 EKG performed at 0 11 shows normal sinus rhythm. Cannot rule out inferior infarct. Vent rate 75 beats were minute. [place] interval 172 ms. QRS duration 80 ms. QTQTC 370/420 ms. - Radiology Data Radiology results: report reviewed Cardiomegaly. Pulmonary fibrotic changes. Clearing of the right upper lobe pneumonia. Old exam. No gross heart failure. Disposition Clinical Impression: UTI (urinary tract infection), Myoclonic jerking, Cerebral palsy, Febrile illness, acute Disposition: ADMITTED IP TO THIS HOSP Condition: Stable Referrals: Ghanshyam,Alexis, MD [Primary Care Provider] - 1-2 days Time of Disposition: 02:21
[2018-02-10] MEDS ORDERED: LEVOFLOXACIN 750MG-D5W PMX 750 MG in DEXTROSE/WATER 1 150ML.BAG IVPB STA (02:04)
[2018-02-10] MEDS ORDERED: MORPHINE SULFATE 4 MG/ML SYRINGE IV PRN (02:21)
[2018-02-10] MEDS ORDERED: ONDANSETRON 4 MG/2 ML VIAL IVP PRN (02:21)
[2018-02-10] MEDS ORDERED: NALOXONE 0.4 MG/ML 1 ML VIAL IV PRN (02:21)
[2018-02-10] MEDS ORDERED: Acetaminophen-Codeine 300-30mg TAB PO PRN (02:21)
[2018-02-10] MEDS ORDERED: IBUPROFEN 400 MG TAB PO PRN (02:21)
[2018-02-10 03:41] VITALS: BMI 20.4
[2018-02-10] MEDS: SODIUM CHLORIDE 0.9% 1,000 ML IV SCH ×2 (06:33→11:39)
[2018-02-10] MEDS: PANTOPRAZOLE 40 MG/10 ML VIAL IV SCH (09:00)
[2018-02-10] MEDS ORDERED: LACTULOSE 20 GM/30 ML CUP PO PRN (10:21)
[2018-02-10] MEDS ORDERED: guaiFENesin SYRUP 100MG/5ML 200 MG/10 ML CUP PO PRN (10:21)
[2018-02-10] MEDS ORDERED: POLYETHYLENE GLYCOL 3350 17 GM POWD.PACK PO PRN (10:21)
--- NOTE | 2018-02-10 10:38 | P.HPIM ---
History of Present Illness 62-year-old male with a history of cerebral palsy presents emergency Department chief complaint of fevers, nausea vomiting for one day. Patient reports that after he was being fed too fast he started to aspirate and choke. This fever started. He states that happen today. Patient states that he does not feel nauseated at this time upon arrival. He was given Tylenol at his assisted living facility prior to arrival. He lives at [facility] on the [address]. Patient denies any specific chest pain or shortness of breath. He reports that he has been coughing. She is found to have fever chest x-ray did not show any pneumonic process or aspiration. Patient denied any dysuria patient has baseline tremor for which patient will be restarted back on his medications except for tramadol patient has myoclonic jerks which are his baseline apparently. Patient used and was abnormal beyond that all the septic workup is negative patient had Pseudomonas in the urine in the past because of which patient was started on Zosyn which also covers aspiration pneumonia although there is no evidence of aspiration pneumonia will obtain bedside swallow evaluation. Review of Systems REVIEW OF SYSTEMS: CONSTITUTIONAL: As mentioned in HPI HEENT: No recent visual problems or hearing problems. Denied any sore throat. CARDIOVASCULAR: No chest pain, orthopnea, PND, no palpitations, no syncope. PULMONARY: No shortness of breath, no cough, no hemoptysis. GASTROINTESTINAL: No diarrhea, no nausea, no vomiting, no abdominal pain. Normoactive bowel sounds. NEUROLOGICAL: No headaches, no weakness, no numbness. HEMATOLOGICAL: Denies any bleeding or petechiae. GENITOURINARY: Denies any burning micturition, frequency, or urgency. MUSCULOSKELETAL/RHEUMATOLOGICAL: Denies any joint pain, swelling, or any muscle pain. ENDOCRINE: Denies any polyuria or polydipsia. The rest of the 14-point review of systems is negative. Past Medical History Past Medical History: Prostate Disorder Additional Past Medical History / Comment(s): Cerebral palsy, parkinsonian features, BPH, hypertension, osteoarthritis, acid reflux History of Any Multi-Drug Resistant Organisms: MRSA Date of last positivie culture/infection: 10/01/16 MDRO Source:: URINE Past Surgical History: Joint Replacement, Orthopedic Surgery, Prostate Surgery Additional Past Surgical History / Comment(s): 01/18/16 Total R hip arthroplasty. Other surgeries: LT HIP REPLACEMENT, TURP, hand tendon surg. Past Anesthesia/Blood Transfusion Reactions: No Reported Reaction Past Psychological History: Depression Additional Psychological History / Comment(s): SUICIDE ATTEMPT OCTOBER 2013. Pt resides at [facility]. He is assisted into a wheelchair. He needs assistance with ADL's. Smoking Status: Never smoker Past Alcohol Use History: None Reported Additional Past Alcohol Use History / Comment(s): Pt will drink a beer on occasion. Past Drug Use History: None Reported - Past Family History Mother Family Medical History: No Reported History Additional Family Medical History / Comment(s): Mother is healthy and is 91 yrs old. Father Family Medical History: Myocardial Infarction ([place]) Additional Family Medical History / Comment(s): Father at age 59. He had several ID's. Medications and Allergies Home Medications Medication Instructions Recorded Confirmed Type Aspirin 325 mg PO BID 09/18/16 02/10/18 History Cholecalciferol [Vitamin D3] 1,000 unit PO DAILY@0900 09/18/16 02/10/18 History Escitalopram [Lexapro] 20 mg PO DAILY@0900 09/18/16 02/10/18 History Loratadine [Claritin] 10 mg PO DAILY@0900 09/18/16 02/10/18 History Polyethylene Glycol 3350 [Miralax] 17 gm PO DAILY PRN 09/18/16 02/10/18 History Propranolol [Inderal] 20 mg PO BID@0900,1700 09/18/16 02/10/18 History Tamsulosin HCl [Flomax] 0.8 mg PO HS@2100 09/18/16 02/10/18 History Melatonin 10 mg PO HS@2100 07/02/17 02/10/18 History Primidone [Mysoline] 250 mg PO BID tab 07/13/17 02/10/18 Rx Lactulose 10 gm PO BID PRN 08/15/17 02/10/18 History traMADol HCl [Ultram] 100 mg PO Q6HR PRN #20 tab 08/18/17 02/10/18 Rx clonazePAM [KlonoPIN] 2 mg PO HS PRN 02/10/18 02/10/18 History guaiFENesin SYRUP 100MG/5ML 10 ml PO Q4HR PRN 02/10/18 02/10/18 History [Robitussin] Allergies Allergy/AdvReac Type Severity Reaction Status Date / Time No Known Allergies Allergy Verified 02/09/18 23:55 Physical Exam Vitals: Vital Signs Temp Pulse Pulse Resp BP BP Pulse Ox 02/10/18 07:00 97.4 F L 71 18 121/72 97 02/10/18 05:00 73 16 02/10/18 03:27 98.0 F 73 16 107/76 93 L 02/10/18 03:00 98.9 F 69 18 147/60 97 02/10/18 01:49 99.1 F 66 16 121/62 95 02/10/18 00:37 73 20 129/69 95 02/09/18 23:53 100.5 F H 88 20 134/99 95 Intake and Output 02/09/18 02/10/18 02/10/18 22:59 06:59 14:59 Other: Voiding Method Incontinent # Voids 1 Weight 54 kg PHYSICAL EXAMINATION: GENERAL: The patient is alert and oriented x3, not in any acute distress. Well developed, well nourished. has significant myoclonic jerks HEENT: Pupils are round and equally reacting to light. EOMI. No scleral icterus. No conjunctival pallor. Normocephalic, atraumatic. No pharyngeal erythema. No thyromegaly. CARDIOVASCULAR: S1 and S2 present. No murmurs, rubs, or gallops. Tachycardic PULMONARY: Chest is clear to auscultation, no wheezing or crackles. ABDOMEN: Soft, nontender, nondistended, normoactive bowel sounds. No palpable organomegaly. MUSCULOSKELETAL: No joint swelling or deformity. EXTREMITIES: No cyanosis, clubbing, or pedal edema. NEUROLOGICAL: Gross neurological examination did not reveal any new focal deficits. SKIN: No rashes. Results CBC & Chem 7: 02/10/18 00:20 02/10/18 00:20 Labs: Abnormal Lab Results - Last 24 Hours (Table) 02/10/18 02/10/18 02/10/18 Range/Units 00:20 00:20 00:20 Lymphocytes # 0.7 L (1.0-4.8) k/uL INR 1.2 H (<1.2) Glucose 110 H (74-99) mg/dL Alkaline Phosphatase 140 H (38-126) U/L Urine Protein (Negative) Urine Ketones (Negative) Urine Blood (Negative) Urine RBC (0-5) /hpf Urine WBC (0-5) /hpf Amorphous Sediment (None) /hpf Urine Mucus (None) /hpf 02/10/18 Range/Units 01:00 Lymphocytes # (1.0-4.8) k/uL INR (<1.2) Glucose (74-99) mg/dL Alkaline Phosphatase (38-126) U/L Urine Protein Trace H (Negative) Urine Ketones 1+ H (Negative) Urine Blood Small H (Negative) Urine RBC 28 H (0-5) /hpf Urine WBC 22 H (0-5) /hpf Amorphous Sediment Rare H (None) /hpf Urine Mucus Rare H (None) /hpf Thrombosis Risk Factor Assmnt - Choose All That Apply Any of the Below Risk Factors Present?: No Each Risk Factor Represents 2 Points: Age 61-74 years, Patient confined to bed Thrombosis Risk Factor Assessment Total Risk Factor Score: 4 Thrombosis Risk Factor Assessment Level: Moderate Risk Assessment and Plan Plan: , Possibility of urinary tract infection: We will await urine cultures patient will be started on Zosyn to cover Pseudomonas in the past and also cover for aspiration pneumonitis. -Cerebral palsy -Chronic myoclonic jerks from his cerebral palsy -Hypertension -Benign prostatic hypertrophy. Patient will be started on appropriate home medications. Tramadol will be discontinued because of significant myoclonic activity
[2018-02-10] MEDS: PIPERACILLIN-TAZOBACTAM 3.375 GM in DEXTROSE/WATER 1 50ML.BAG IVPB SCH ×2 (11:32→16:35)
[2018-02-10] MEDS: PRIMIDONE 250 MG TAB PO SCH ×2 (11:33→21:06)
[2018-02-10] MEDS: PROPRANOLOL 20 MG TAB PO SCH ×2 (11:33→18:43)
[2018-02-10] MEDS: ACETAMINOPHEN TAB 325 MG TAB PO PRN (16:54)
[2018-02-10] MEDS: TAMSULOSIN 0.4 MG CAP.ER.24H PO SCH (21:06)
[2018-02-10] MEDS: ASPIRIN 325 MG TAB PO SCH (21:06)
[2018-02-10] MEDS: MELATONIN 5 MG TABLET PO SCH (21:06)
[2018-02-10] MEDS: IBUPROFEN 400 MG TAB PO PRN (21:06)
[2018-02-10] MEDS ORDERED: MORPHINE SULFATE/PF 10MG/10ML VL IV PRN (21:21)
[2018-02-11] MEDS: PIPERACILLIN-TAZOBACTAM 3.375 GM in DEXTROSE/WATER 1 50ML.BAG IVPB SCH ×3 (00:43→16:55)
[2018-02-11] MEDS: SODIUM CHLORIDE 0.9% 1,000 ML IV SCH ×3 (05:59→12:57)
[2018-02-11] MEDS: ASPIRIN 325 MG TAB PO SCH ×2 (09:20→22:21)
[2018-02-11] MEDS: ESCITALOPRAM 10 MG TAB PO SCH (09:20)
[2018-02-11] MEDS: PRIMIDONE 250 MG TAB PO SCH ×2 (09:21→22:21)
[2018-02-11] MEDS: PANTOPRAZOLE 40 MG/10 ML VIAL IV SCH (09:21)
[2018-02-11] MEDS: LORATADINE 10 MG TAB PO SCH (09:21)
[2018-02-11] MEDS: PROPRANOLOL 20 MG TAB PO SCH ×2 (09:21→17:52)
[2018-02-11] MEDS ORDERED: MORPHINE ORAL SOLN 10 MG/5 ML CUP PO PRN (14:17)
--- NOTE | 2018-02-11 15:01 | P.PN ---
Subjective 62-year-old gentleman was admitted for urinary tract infection patient urine culture showing enterococcus finalization of cultures are pending patient had fever last night. Patient can use to have extreme resting tremors. Tramadol was discontinued yesterday. Constitutional: Denied any fatigue denied any fever. Cardio vascular: denied any chest pain, palpitations Gastrointestinal denied any nausea vomiting Pulmonary: Denied any shortness of breath cough Neurologic denied any new focal deficits Objective - Vital Signs Vital signs: Vital Signs Temp 98.4 F 02/11/18 06:54 Pulse 74 02/11/18 06:54 Resp 18 02/11/18 06:54 BP 131/92 02/11/18 06:54 Pulse Ox 97 02/11/18 06:54 Intake & Output 02/10/18 02/11/18 02/11/18 18:59 06:59 18:59 Other: Voiding Method Incontinent Incontinent Incontinent # Voids 4 2 - Exam GENERAL: The patient is alert and oriented x3, not in any acute distress. Well developed, well nourished. has significant myoclonic jerks HEENT: Pupils are round and equally reacting to light. EOMI. No scleral icterus. No conjunctival pallor. Normocephalic, atraumatic. No pharyngeal erythema. No thyromegaly. CARDIOVASCULAR: S1 and S2 present. No murmurs, rubs, or gallops. Tachycardic PULMONARY: Chest is clear to auscultation, no wheezing or crackles. ABDOMEN: Soft, nontender, nondistended, normoactive bowel sounds. No palpable organomegaly. MUSCULOSKELETAL: No joint swelling or deformity. EXTREMITIES: No cyanosis, clubbing, or pedal edema. NEUROLOGICAL: Gross neurological examination did not reveal any new focal deficits. SKIN: No rashes. - Labs CBC & Chem 7: 02/10/18 00:20 02/10/18 00:20 Labs: Microbiology - Last 24 Hours (Table) 02/10/18 01:00 Urine Culture - Preliminary Urine,Catheterized Group D Enterococcus 02/10/18 00:20 Blood Culture - Preliminary Blood No Growth after 24 hours Assessment and Plan Plan: , Possibility of urinary tract infection: We will await urine cultures patient will be started on Zosyn which should cover enterococcus finalization of cultures and studies are still pending -Cerebral palsy -Chronic myoclonic jerks from his cerebral palsy -Hypertension -Benign prostatic hypertrophy. Patient will be started on appropriate home medications. Tramadol will be discontinued because of significant myoclonic activity
[2018-02-11] MEDS: IBUPROFEN 400 MG TAB PO PRN (15:26)
[2018-02-11] MEDS: ACETAMINOPHEN TAB 325 MG TAB PO PRN (17:32)
[2018-02-11] MEDS: TAMSULOSIN 0.4 MG CAP.ER.24H PO SCH (22:21)
[2018-02-11] MEDS: MELATONIN 5 MG TABLET PO SCH (22:21)
[2018-02-12] MEDS: ACETAMINOPHEN TAB 325 MG TAB PO PRN ×3 (01:20→23:40)
[2018-02-12] MEDS: PIPERACILLIN-TAZOBACTAM 3.375 GM in DEXTROSE/WATER 1 50ML.BAG IVPB SCH ×4 (01:20→23:49)
[2018-02-12] MEDS: SODIUM CHLORIDE 0.9% 1,000 ML IV SCH ×4 (04:17→22:11)
[2018-02-12] MEDS: ASPIRIN 325 MG TAB PO SCH ×2 (08:24→22:11)
[2018-02-12] MEDS: PANTOPRAZOLE 40 MG TABLET PO SCH (08:24)
[2018-02-12] MEDS: PROPRANOLOL 20 MG TAB PO SCH ×2 (08:25→17:16)
[2018-02-12] MEDS: LORATADINE 10 MG TAB PO SCH (08:25)
[2018-02-12] MEDS: ESCITALOPRAM 10 MG TAB PO SCH (09:16)
[2018-02-12] MEDS: PRIMIDONE 250 MG TAB PO SCH ×2 (09:16→23:40)
[2018-02-12 09:18] LABS: HCT 39.1 % (39.0-53.0); HGB 13.2 gm/dL (13.0-17.5); MCH 29.8 pg (25.0-35.0); MCHC 33.6 g/dL (31.0-37.0); MCV 88.5 fL (80.0-100.0); Mean Platelet Volume 7.1; Platelet Count 153 k/uL (150-450); RBC 4.42 m/uL (4.30-5.90); RDW 13.8 % (11.5-15.5); WBC 6.1 k/uL (3.8-10.6)
[2018-02-12 09:38] LABS: Anion Gap 10 mmol/L; Blood Urea Nitrogen 9 mg/dL (9-20); Calcium 8.3 mg/dL (8.4-10.2); Carbon Dioxide 27 mmol/L (22-30); Chloride 101 mmol/L (98-107); Glucose 90 mg/dL (74-99); Potassium 3.8 mmol/L (3.5-5.1); Sodium 138 mmol/L (137-145)
--- NOTE | 2018-02-12 15:59 | P.PN ---
Subjective Progress Note Date: 02/12/18 Progress note being dictated for Dr. Barnett. Interval history: This is a 62-year-old gentleman was admitted for urinary tract infection patient urine culture showing enterococcus finalization of cultures are pending patient had fever last night. Patient can use to have extreme resting tremors. Tramadol was discontinued yesterday. Constitutional: Denied any fatigue denied any fever. Cardio vascular: denied any chest pain, palpitations Gastrointestinal denied any nausea vomiting Pulmonary: Denied any shortness of breath cough Neurologic denied any new focal deficits 02/12/2018 antibiotics changed to Zosyn yesterday as urine culture reported enterococcus group D. Today urine culture collected, reporting greater than 100 ,000 scan and/or genital sunitha. Fevers persist, T-max 101.1. Blood cultures no growth at 24 and 48 hours. Good diet intake no nausea or vomiting. No diarrhea. Denies abdominal pain, chest pain. Denies cough or shortness of breath. Objective - Vital Signs Vital signs: Vital Signs Temp 99.7 F H 02/12/18 07:00 Pulse 119 H 02/12/18 07:00 Resp 20 02/12/18 07:00 BP 130/60 02/12/18 07:00 Pulse Ox 91 L 02/12/18 07:00 Intake & Output 02/11/18 02/12/18 02/12/18 18:59 06:59 18:59 Intake Total 480 Balance 480 Intake: Oral 480 Other: Voiding Method Incontinent Incontinent Incontinent # Voids 4 2 - Exam GENERAL: The patient is alert and oriented x2, not in any acute distress. HEENT: Pupils are round and equally reacting to light. EOMI. No scleral icterus. No conjunctival pallor. Normocephalic, atraumatic. No pharyngeal erythema. No thyromegaly. CARDIOVASCULAR: S1 and S2 present. No murmurs, rubs, or gallops. Tachycardic PULMONARY: Chest is clear to auscultation, no wheezing or crackles. ABDOMEN: Soft, nontender, nondistended, normoactive bowel sounds. No palpable organomegaly. MUSCULOSKELETAL: No joint swelling or deformity. EXTREMITIES: No cyanosis, clubbing, or pedal edema. NEUROLOGICAL: Gross neurological examination did not reveal any new focal deficits. Significant myoclonic jerks SKIN: No rashes. - Labs CBC & Chem 7: 02/12/18 08:45 02/12/18 08:45 Labs: Abnormal Lab Results - Last 24 Hours (Table) 02/12/18 Range/Units 08:45 Creatinine 0.65 L (0.66-1.25) mg/dL Calcium 8.3 L (8.4-10.2) mg/dL Microbiology - Last 24 Hours (Table) 02/10/18 01:00 Urine Culture - Final Urine,Catheterized 02/10/18 00:20 Blood Culture - Preliminary Blood No Growth after 48 hours 02/10/18 20:27 Blood Culture - Preliminary Blood No Growth after 24 hours Assessment and Plan Assessment: Possibility of urinary tract infection -Cerebral palsy -Chronic myoclonic jerks from his cerebral palsy -Hypertension -Benign prostatic hypertrophy. Patient will be started on appropriate home medications. Tramadol discontinued because of significant myoclonic activity. Persistent fevers, infectious disease consulted. Follow cultures closely. The impression and plan of care has been dictated as directed. : I performed a history and examination of this patient, discussed the same with the dictator. I agree with the dictator's note ,documented as a scribe. Any additional findings or plans will be noted.
[2018-02-12] MEDS: MELATONIN 5 MG TABLET PO SCH (22:11)
[2018-02-12] MEDS: TAMSULOSIN 0.4 MG CAP.ER.24H PO SCH (22:11)
[2018-02-13] MEDS: SODIUM CHLORIDE 0.9% 1,000 ML IV SCH ×3 (05:49→23:24)
[2018-02-13] MEDS: LORATADINE 10 MG TAB PO SCH (07:52)
[2018-02-13] MEDS: PANTOPRAZOLE 40 MG TABLET PO SCH (07:52)
[2018-02-13] MEDS: ESCITALOPRAM 10 MG TAB PO SCH (07:52)
[2018-02-13] MEDS: ACETAMINOPHEN TAB 325 MG TAB PO PRN ×3 (07:52→21:56)
[2018-02-13] MEDS: PIPERACILLIN-TAZOBACTAM 3.375 GM in DEXTROSE/WATER 1 50ML.BAG IVPB SCH ×3 (07:52→23:38)
[2018-02-13] MEDS: PROPRANOLOL 20 MG TAB PO SCH ×2 (07:52→15:15)
[2018-02-13] MEDS: PRIMIDONE 250 MG TAB PO SCH ×2 (07:52→21:44)
[2018-02-13] MEDS: ASPIRIN 325 MG TAB PO SCH ×2 (07:52→21:44)
--- NOTE | 2018-02-13 19:26 | CONS ---
CONSULTATION DATE OF SERVICE: 02/13/2018. REASON FOR CONSULTATION: Persistent fever. HISTORY OF PRESENT ILLNESS: The patient is a 62-year-old male presenting to the ER at [facility] on February 09, 2018 with chief complaints of fever, nausea, vomiting of 1 day duration. Apparently the patient who did have underlying cerebral palsy and was being fed to fast started to aspirate and choke. Subsequently start having a fever. The patient was given an [facility]ylenol at [facility] prior to arrival and subsequently sent to the [facility] for further evaluation of the same. The patient did have a chest x-ray which did show right upper lobe pneumonia though it was improved compared to previous x-ray. The patient has been started on Zosyn. However, the patient does have a persistent fever with 100.5 on admission, was 102 on 02/10 and 101 on 02/12 and is 100.9 this morning. Hence, Infectious Disease was consulted for further recommendation of antibiotic therapy. The patient did mention that he is feeling slightly better compared to when he came to the hospital. The patient denies having any nausea, no vomiting. No chest pain but not specifically for any choking or coughing the RN denied and no open wounds. REVIEW OF SYSTEMS: CONSTITUTIONAL: Positive for weakness along with the fever. EYES: No complaint. ENT: No complaint. RESPIRATORY: As per HPI. CARDIOVASCULAR: No complaint. GENITOURINARY: No complaint. GASTROINTESTINAL: No complaint. MUSCULOSKELETAL: No complaint. INTEGUMENTARY: No complaint. PSYCHOLOGICAL: No complaint. ENDOCRINE: No complaint. NEUROLOGIC: No complaint. PAST MEDICAL HISTORY: Significant for a cerebral palsy, parkinsonism, BPH, hypertension, osteoarthritis, acid reflux, history of MRSA UTI. PAST SURGICAL HISTORY: Total right hip arthroplasty, left hip arthroplasty, TURP. SOCIAL HISTORY: No history of smoking, drinking or drug use. Currently residing at the [facility]. FAMILY HISTORY: Father with history of [place] at age of 59. ALLERGIES: No known drug allergies. MEDICATIONS: His medications include the patient is currently on Tylenol, aspirin, Klonopin, Lexapro, Robitussin, Motrin, lactulose, Claritin, melatonin, morphine sulfate, Narcan, Zofran, Protonix, pip-tazobactam, MiraLAX, Mysoline, Inderal, Flomax. EXAMINATION: Blood pressure is 124/59 with a pulse of 72. Temperature of 100.9 axilla. He is 94% on 3 L nasal cannula. General description is a middle-aged male lying in bed in no distress. No tachypnea or accessory muscle respiration use. HEENT: Shows no pallor or scleral icterus. Oral mucosa is dry. No significant erythema or thrush. NECK: Trachea central. No thyromegaly. LUNGS: Unlabored breathing, decreased breath sounds in the bases. No wheeze. HEART: S1, S2. Regular rate and rhythm. ABDOMEN: Soft, no tenderness, no guarding or rigidity. EXTREMITIES: No edema of the feet. SKIN EXAMINATION: No rash or mass palpable. NEUROLOGICAL: Patient is awake, alert, oriented x2. Mood and affect normal. LABS: Hemoglobin is 13.2, white count 6.1 with a BUN of 9, creatinine 0.65. UA did show leukocyte esterase negative with white count only 22. The patient did have blood cultures negative so far. Urine cultures have been negative. Chest report as mentioned above. DIAGNOSTIC IMPRESSION AND PLAN: Patient admitted to the hospital with a fever. The patient apparently did choke while being fed quickly at the [facility] with question of possible aspiration to be the likely etiology. However, the patient has been on good antibiotic therapy in the form of Zosyn still running a fever with a question of other etiologies such as acute influenza versus recurrent aspiration with likely reason for recurrent fevers. PLAN: 1. We will check a bedside swallow evaluation. 2. Check a influenza A and B is followed by PCR. 3. Repeat chest x-ray PA and lateral. 4. Blood culture has been repeated. 5. Zosyn 3.375 g IV piggyback to continue. 6. Depending upon his clinical response as well the rest of his investigation, will adjust medication further if needed. Thank you for this consultation. Will follow this patient along with you. MMODL / IJN: [id number] /
--- NOTE | 2018-02-13 21:23 | XR ---
EXAMINATION TYPE: XR chest 1V DATE OF EXAM: 02/13/2018 COMPARISON: 02/10/2018 HISTORY: History of pneumonia. Follow-up exam. TECHNIQUE: Single frontal view of the chest is obtained. FINDINGS: The right upper lobe opacity has resolved in the interim. Right infrahilar opacities simil ar to the prior exam. Remainder the lungs are clear. Cardiac silhouette is enlarged. Osseous structur es are grossly intact. No sizable pleural effusion or pneumothorax. IMPRESSION: Right infrahilar opacity that may represent confluence of prominent pulmonary vasculatur e or additional site of pneumonia. Right upper lobe opacity has resolved.
[2018-02-13] MEDS: TAMSULOSIN 0.4 MG CAP.ER.24H PO SCH (21:44)
[2018-02-13] MEDS: MELATONIN 5 MG TABLET PO SCH (21:44)
[2018-02-13] MEDS: OSELTAMIVIR 75 MG CAP PO SCH (21:44)
[2018-02-13] MEDS: clonazePAM 1 MG TAB PO PRN (21:49)
[2018-02-14] MEDS: SODIUM CHLORIDE 0.9% 1,000 ML IV SCH ×3 (05:46→23:25)
[2018-02-14] MEDS: LORATADINE 10 MG TAB PO SCH (08:30)
[2018-02-14] MEDS: OSELTAMIVIR 75 MG CAP PO SCH ×2 (08:30→22:46)
[2018-02-14] MEDS: ASPIRIN 325 MG TAB PO SCH ×2 (08:30→21:58)
[2018-02-14] MEDS: PRIMIDONE 250 MG TAB PO SCH ×2 (08:30→21:59)
[2018-02-14] MEDS: PANTOPRAZOLE 40 MG TABLET PO SCH (08:30)
[2018-02-14] MEDS: ESCITALOPRAM 10 MG TAB PO SCH (08:30)
[2018-02-14] MEDS: PROPRANOLOL 20 MG TAB PO SCH ×2 (08:31→15:10)
[2018-02-14] MEDS: PIPERACILLIN-TAZOBACTAM 3.375 GM in DEXTROSE/WATER 1 50ML.BAG IVPB SCH ×3 (08:47→23:25)
--- NOTE | 2018-02-14 13:23 | P.PN ---
Subjective Progress Note Date: 02/13/18 Progress note being dictated for Dr. Barnett. Interval history: This is a 62-year-old gentleman was admitted for urinary tract infection patient urine culture showing enterococcus finalization of cultures are pending patient had fever last night. Patient can use to have extreme resting tremors. Tramadol was discontinued yesterday. Constitutional: Denied any fatigue denied any fever. Cardio vascular: denied any chest pain, palpitations Gastrointestinal denied any nausea vomiting Pulmonary: Denied any shortness of breath cough Neurologic denied any new focal deficits 02/12/2018 antibiotics changed to Zosyn yesterday as urine culture reported enterococcus group D. Today urine culture collected, reporting greater than 100 ,000 scan and/or genital sunitha. Fevers persist, T-max 101.1. Blood cultures no growth at 24 and 48 hours. Good diet intake no nausea or vomiting. No diarrhea. Denies abdominal pain, chest pain. Denies cough or shortness of breath. 02/13/2018 Maintained on Zosyn. fevers persist, T-max 101.1. Repeated BC pending.Repeat CXR reporting right infrahilar opacity, right upper lobe opacity resolved. Evaluated by infectious disease, recommendations noted.Positive for Influenza B, tamiflu initiated. Objective - Vital Signs Vital signs: Vital Signs Temp 101.1 F H 02/13/18 15:00 Pulse 86 02/13/18 15:00 Resp 16 02/13/18 15:00 BP 116/64 02/13/18 15:00 Pulse Ox 94 L 02/13/18 15:00 Intake & Output 02/13/18 02/13/18 02/14/18 06:59 18:59 06:59 Intake Total 550 200 Balance 550 200 Intake: Oral 550 200 Other: Voiding Method Diaper Diaper Incontinent Incontinent # Voids 3 2 # Bowel Movements 2 - Exam GENERAL: The patient is alert and oriented x2, not in any acute distress. HEENT: Pupils are round and equally reacting to light. EOMI. No scleral icterus. No conjunctival pallor. Normocephalic, atraumatic. CARDIOVASCULAR: S1 and S2 present. No murmurs, rubs, or gallops. Tachycardic PULMONARY: Chest is clear to auscultation, no wheezing or crackles. ABDOMEN: Soft, nontender, nondistended, normoactive bowel sounds. No palpable organomegaly. MUSCULOSKELETAL: No joint swelling or deformity. EXTREMITIES: No cyanosis, clubbing, or pedal edema. NEUROLOGICAL: Gross neurological examination did not reveal any new focal deficits. Significant myoclonic jerks SKIN: No rashes. 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 - Acute Influenza B with possible right sided pneumonia Patient will be started on appropriate home medications. Maintain Antibiotics, Tamiflu. Follow cultures closely.Swallow evaluation as per speech therapy, significant myoclonic jerks, Diet modified with 1;1 assist with all meals. The impression and plan of care has been dictated as directed. : I performed a history and examination of this patient, discussed the same with the dictator. I agree with the dictator's note ,documented as a scribe. Any additional findings or plans will be noted.
[2018-02-14 14:31] LABS: Anion Gap 9 mmol/L; Blood Urea Nitrogen 18 mg/dL (9-20); Calcium 8.2 mg/dL (8.4-10.2); Carbon Dioxide 29 mmol/L (22-30); Chloride 104 mmol/L (98-107); Glucose 96 mg/dL (74-99); Potassium 3.8 mmol/L (3.5-5.1); Sodium 142 mmol/L (137-145)
[2018-02-14 14:38] LABS: HCT 37.3 % (39.0-53.0); HGB 12.7 gm/dL (13.0-17.5); MCH 29.7 pg (25.0-35.0); MCV 87.4 fL (80.0-100.0); Mean Platelet Volume 7.2; Platelet Count 162 k/uL (150-450); RBC 4.26 m/uL (4.30-5.90); RDW 13.9 % (11.5-15.5)
[2018-02-14 15:15] LABS: Anisocytosis (M) Present; Eosinophils # (M) 0.12 k/uL (0-0.7); Lymphocytes # (M) 1.44 k/uL (1.0-4.8); Monocytes # (M) 0.56 k/uL (0-1.0); Neutrophils # (M) 1.88 k/uL (1.3-7.7); Neutrophils % (M) 47 %; Nucleated Red Blood Cells 0 /100 WBC (0-0); Total Cells Counted 100
--- NOTE | 2018-02-14 16:12 | PN ---
PROGRESS NOTE DATE OF SERVICE: 02/14/2018. REASON FOR FOLLOWUP: 1. Acute influenza A. 2. Patient with possible aspiration pneumonia. INTERVAL HISTORY: The patient overall feels better and has improved. She is breathing comfortably, being fed by the nurse's aide without any choking on food. No nausea or vomiting has been noticed or any diarrhea. PHYSICAL EXAMINATION: Blood pressure 105/76 with a pulse of 74, temperature 97.7. He is 96% on 3 L nasal cannula. General description is a middle-aged male lying in bed in no distress. RESPIRATORY SYSTEM: Unlabored breathing. Clear to auscultation anteriorly. HEART: S1, S2. Regular rate and rhythm. ABDOMEN: Soft. No tenderness. EXTREMITIES: No edema of the feet. LABS: Hemoglobin 13.2, white count 6.1, BUN of 9, creatinine 0.65. DIAGNOSTIC IMPRESSION AND PLAN: 1. Patient with a fever. Source is likely acute influenza. Started on Tamiflu and he will continue with a 5-day course of therapy. 2. Patient with possible pneumonia. Currently on Zosyn. Switch to oral Augmentin for about a week to finish a course of therapy. MMODL / IJN: [id number] /
--- NOTE | 2018-02-14 19:06 | P.PN ---
Subjective Progress Note Date: 02/14/18 Progress note being dictated for Dr. Barnett. Interval history: This is a 62-year-old gentleman was admitted for urinary tract infection patient urine culture showing enterococcus finalization of cultures are pending patient had fever last night. Patient can use to have extreme resting tremors. Tramadol was discontinued yesterday. Constitutional: Denied any fatigue denied any fever. Cardio vascular: denied any chest pain, palpitations Gastrointestinal denied any nausea vomiting Pulmonary: Denied any shortness of breath cough Neurologic denied any new focal deficits 02/12/2018 antibiotics changed to Zosyn yesterday as urine culture reported enterococcus group D. Today urine culture collected, reporting greater than 100 ,000 scan and/or genital sunitha. Fevers persist, T-max 101.1. Blood cultures no growth at 24 and 48 hours. Good diet intake no nausea or vomiting. No diarrhea. Denies abdominal pain, chest pain. Denies cough or shortness of breath. 02/13/2018 Maintained on Zosyn. fevers persist, T-max 101.1. Repeated BC pending.Repeat CXR reporting right infrahilar opacity, right upper lobe opacity resolved. Evaluated by infectious disease, recommendations noted.Positive for Influenza B, tamiflu initiated. 02/14/2018 maintained on Tamiflu, Zosyn with significant clinical improvement. T-max 101.1. Normal WBC. Good diet intake. No nausea, vomiting, diarrhea. Denies any abdominal pain. Objective - Vital Signs Vital signs: Vital Signs Temp 97.7 F 02/14/18 07:00 Pulse 74 02/14/18 07:00 Resp 16 02/14/18 07:00 BP 105/76 02/14/18 07:00 Pulse Ox 97 02/14/18 07:00 Intake & Output 02/13/18 02/14/18 02/14/18 18:59 06:59 18:59 Intake Total 200 200 Balance 200 200 Intake: Oral 200 200 Other: Voiding Method Diaper Diaper Diaper Incontinent Incontinent Incontinent # Voids 2 3 1 # Bowel Movements 3 - Exam GENERAL: The patient is alert and oriented x2, sitting up in bed, not in any acute distress. HEENT: Pupils are round and equal,No scleral icterus. No conjunctival pallor. Normocephalic, atraumatic. CARDIOVASCULAR: Regular S1 and S2 . No murmurs, rubs, or gallops. PULMONARY: Chest is clear to auscultation, no wheezing or crackles. ABDOMEN: Soft, nontender, nondistended, normoactive bowel sounds. No palpable organomegaly. MUSCULOSKELETAL: No joint swelling or deformity. EXTREMITIES: No cyanosis, clubbing, or pedal edema. NEUROLOGICAL: Gross neurological examination did not reveal any new focal deficits. Significant myoclonic jerks SKIN: No rashes. 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 - Acute Influenza B with possible right sided pneumonia Patient will be started on appropriate home medications. Maintain Zosyn, Tamiflu. Blood cultures negative at 72 hours. Discharge planning in progress for return to [facility]. The impression and plan of care has been dictated as directed. : I performed a history and examination of this patient, discussed the same with the dictator. I agree with the dictator's note ,documented as a scribe. Any additional findings or plans will be noted.
[2018-02-14] MEDS: MELATONIN 5 MG TABLET PO SCH (21:59)
[2018-02-14] MEDS: clonazePAM 1 MG TAB PO PRN (21:59)
[2018-02-14] MEDS: TAMSULOSIN 0.4 MG CAP.ER.24H PO SCH (21:59)
[2018-02-14] MEDS: ACETAMINOPHEN TAB 325 MG TAB PO PRN (21:59)
[2018-02-15] MEDS: PRIMIDONE 250 MG TAB PO SCH ×2 (08:28→21:42)
[2018-02-15] MEDS: PIPERACILLIN-TAZOBACTAM 3.375 GM in DEXTROSE/WATER 1 50ML.BAG IVPB SCH ×2 (08:28→17:01)
[2018-02-15] MEDS: PANTOPRAZOLE 40 MG TABLET PO SCH (08:28)
[2018-02-15] MEDS: LORATADINE 10 MG TAB PO SCH (08:28)
[2018-02-15] MEDS: ASPIRIN 325 MG TAB PO SCH ×2 (08:28→21:42)
[2018-02-15] MEDS: PROPRANOLOL 20 MG TAB PO SCH ×2 (08:28→17:56)
[2018-02-15] MEDS: ESCITALOPRAM 10 MG TAB PO SCH (08:28)
[2018-02-15] MEDS: OSELTAMIVIR 75 MG CAP PO SCH ×2 (08:28→21:42)
[2018-02-15] MEDS: ACETAMINOPHEN TAB 325 MG TAB PO PRN ×2 (08:38→21:41)
[2018-02-15 08:49] LABS: Blood Urea Nitrogen 18 mg/dL (9-20); Calcium 8.3 mg/dL (8.4-10.2); Carbon Dioxide 31 mmol/L (22-30); Glucose 82 mg/dL (74-99); Potassium 3.7 mmol/L (3.5-5.1); Sodium 144 mmol/L (137-145)
[2018-02-15 08:52] LABS: Anion Gap 8 mmol/L; Chloride 105 mmol/L (98-107)
[2018-02-15 09:09] LABS: HCT 38.9 % (39.0-53.0); HGB 13.3 gm/dL (13.0-17.5); MCHC 34.3 g/dL (31.0-37.0); MCV 87.5 fL (80.0-100.0); Mean Platelet Volume 6.9; Platelet Count 172 k/uL (150-450); RBC 4.45 m/uL (4.30-5.90); RDW 13.9 % (11.5-15.5); WBC 4.9 k/uL (3.8-10.6)
[2018-02-15 09:54] LABS: Eosinophils # (M) 0.44 k/uL (0-0.7); Lymphocytes # (M) 1.57 k/uL (1.0-4.8); Monocytes # (M) 0.34 k/uL (0-1.0); Neutrophils # (M) 2.55 k/uL (1.3-7.7); Neutrophils % (M) 52 %; Nucleated Red Blood Cells 0 /100 WBC (0-0); Total Cells Counted 100
--- NOTE | 2018-02-15 12:55 | PN ---
PROGRESS NOTE DATE OF SERVICE: 02/15/2018 REASON FOR FOLLOWUP: 1. Acute influenza B. 2. Possible aspiration pneumonia. INTERVAL HISTORY: Patient did have a low-grade fever last night of 100.4. The patient is afebrile since then. He is breathing comfortably. Denies having any chest pain. No cough, no nausea, no vomiting. No abdominal pain or any diarrhea. PHYSICAL EXAMINATION: Blood pressure 110/52 with a pulse of 70, temperature 97.6, he is 98% on 4 L nasal cannula. General description is a middle-aged male, lying in bed in no distress. RESPIRATORY SYSTEM: Unlabored breathing, clear to auscultation anteriorly. No wheeze or crackle. HEART: S1, S2. Regular rate and rhythm. ABDOMEN: Soft, no tenderness. LABS: Hemoglobin 13.2, white count of 4.8 with a BUN of 18, creatinine 0.62. DIAGNOSTIC IMPRESSION AND PLAN: Patient with fever, source likely acute influenza B with a question of possible aspiration pneumonia. Patient at this time will continue on Tamiflu to finish a 5-day course of therapy and also addition to oral Augmentin for about a week. Continue supportive care. MMODL / IJN: [id number] /
[2018-02-15] MEDS: SODIUM CHLORIDE 0.9% 1,000 ML IV SCH ×2 (14:02→17:01)
--- NOTE | 2018-02-15 21:01 | PN ---
PROGRESS NOTE DATE OF SERVICE: 02/15/2018. PRESENTING COMPLAINT: Cough. INTERVAL HISTORY: Patient admitted with pneumonia, felt to be combination of influenza B and aspiration pneumonia. The patient is on IV Zosyn and Tamiflu. I spoke to the nurse. Patient did tolerate his diet. Got a slight cough, had a low-grade fever yesterday evening. Lying in bed. REVIEW OF SYSTEMS: Done for constitutional, cardiovascular, GI, pulmonary, relevant findings as above. CURRENT MEDICATIONS: Reviewed that include IV Zosyn and Tamiflu. PHYSICAL EXAMINATION: On examination T-max 100.2 last night and this morning, afebrile, pulse 70, respiration 18, blood pressure 110/52, pulse ox 98% on 4 L. General appearance: Lying in bed, awake. Eyes: Pupils are equal. Conjunctivae normal. HEENT: External appearance of nose and ears normal. Oral cavity normal. Neck JVD unable to assess. Mass not palpable. Respiratory effort normal. Lungs decreased breath sounds. Cardiovascular 1st and 2nd sounds normal. No edema. ABDOMEN: Soft nontender. Liver and spleen not palpable. Psychiatry: Awake, answering questions. Neurological: Patient has got baseline dysarthria and has generalized abnormal body movements, which is chronic for him. ASSESSMENT: 1. Probably aspiration pneumonia causing sepsis present on admission. 2. Influenza B, present on admission. 3. Cerebral palsy with associated myoclonic jerks at baseline. 4. Gastroesophageal reflux disease. 5. Essential hypertension. 6. Primary osteoarthritis multiple joints. 7. Benign prostatic hypertrophy. 8. Chronic medical debility. PLAN: Patient overall seems to be getting better. Continue current medication and treatment plan. If remains afebrile today, we will discharge the patient tomorrow. This was discussed with the patient and the nurse. MMODL / IJN: [id number] /
[2018-02-15] MEDS: clonazePAM 1 MG TAB PO PRN (21:42)
[2018-02-15] MEDS: TAMSULOSIN 0.4 MG CAP.ER.24H PO SCH (21:42)
[2018-02-15] MEDS: MELATONIN 5 MG TABLET PO SCH (21:42)
[2018-02-15] MEDS: CALCIUM CARBONATE LIQUID 500 MG/5 ML CUP PO SCH (21:44)
[2018-02-16] MEDS: SODIUM CHLORIDE 0.9% 1,000 ML IV SCH ×2 (00:17→08:16)
[2018-02-16] MEDS: PIPERACILLIN-TAZOBACTAM 3.375 GM in DEXTROSE/WATER 1 50ML.BAG IVPB SCH ×2 (00:29→08:15)
[2018-02-16 07:43] LABS: HCT 36.3 % (39.0-53.0); HGB 12.4 gm/dL (13.0-17.5); MCH 29.8 pg (25.0-35.0); MCHC 34.3 g/dL (31.0-37.0); Mean Platelet Volume 6.6; Platelet Count 183 k/uL (150-450); RBC 4.17 m/uL (4.30-5.90); RDW 13.8 % (11.5-15.5)
[2018-02-16 07:53] LABS: Anion Gap 8 mmol/L; Blood Urea Nitrogen 13 mg/dL (9-20); Carbon Dioxide 30 mmol/L (22-30); Chloride 105 mmol/L (98-107); Glucose 79 mg/dL (74-99); Potassium 3.7 mmol/L (3.5-5.1); Sodium 143 mmol/L (137-145)
[2018-02-16] MEDS: OSELTAMIVIR 75 MG CAP PO SCH (08:15)
[2018-02-16] MEDS: LORATADINE 10 MG TAB PO SCH (08:15)
[2018-02-16] MEDS: CALCIUM CARBONATE LIQUID 500 MG/5 ML CUP PO SCH ×2 (08:15→12:42)
[2018-02-16] MEDS: ASPIRIN 325 MG TAB PO SCH (08:15)
[2018-02-16] MEDS: ESCITALOPRAM 10 MG TAB PO SCH (08:15)
[2018-02-16] MEDS: PROPRANOLOL 20 MG TAB PO SCH (08:15)
[2018-02-16] MEDS: PANTOPRAZOLE 40 MG TABLET PO SCH (08:15)
[2018-02-16] MEDS: PRIMIDONE 250 MG TAB PO SCH (08:16)
[2018-02-16 09:44] LABS: Eosinophils # (M) 0.28 k/uL (0-0.7); Lymphocytes # (M) 1.76 k/uL (1.0-4.8); Monocytes # (M) 0.36 k/uL (0-1.0); Neutrophils % (M) 40 %; Nucleated Red Blood Cells 0 /100 WBC (0-0); Total Cells Counted 100
--- NOTE | 2018-02-16 14:05 | PN ---
PROGRESS NOTE DATE OF SERVICE: 02/16/2018 REASON FOR FOLLOWUP: 1. Acute Influenza B. 2. Possible aspiration pneumonia. INTERVAL HISTORY: The patient is afebrile. He is breathing comfortably. Denies having any chest pain, minimal cough. No nausea, vomiting. No abdominal pain or any diarrhea. PHYSICAL EXAMINATION: Blood pressure 119/52 with a pulse of 62, temperature 98.6. He is 96% on 3 L nasal cannula. General description is a middle-aged male, lying in bed in no distress. RESPIRATORY SYSTEM: Unlabored breathing, clear to auscultation anteriorly. HEART: S1, S2. Regular rate and rhythm. ABDOMEN: Soft, no tenderness. LABS: Hemoglobin 12.4, white count of 4.0, BUN of 13, creatinine 0.64. DIAGNOSTIC IMPRESSION AND PLAN: 1. Patient with acute influenza B, for which the patient will continue on Tamiflu to finish course of therapy. 2. Patient possible aspiration pneumonia. Antibiotic was switched over to Augmentin for about a week to finish a course of therapy. Continue supportive care. ROB / COURT: [id number] /
--- NOTE | 2018-02-16 14:47 | DS ---
DISCHARGE SUMMARY DATE OF ADMISSION: 02/10/18. DATE OF DISCHARGE: 02/16/18. FINAL DIAGNOSES: 1. Probably aspiration pneumonia causing sepsis present on admission. 2. Influenza B infection present on admission. 3. Cerebral palsy with associated myoclonic jerks at baseline. 4. Gastroesophageal reflux disease. 5. Essential hypertension. 6. Primary osteoarthritis multiple joints. 7. Benign prostatic hypertrophy. 8. Chronic medical debility. 9. Chronic dysarthria from cerebral palsy. HOSPITAL COURSE: This patient with baseline cerebral palsy, who has baseline myoclonic jerks with dysarthria, presented with aspiration pneumonia and influenza B. Doing much better by the time of discharge afebrile. White count was normal. Tolerating a diet. Seen by Dr. Wu from Infectious Disease. The patient is being discharged. Patient is tolerating a diet. EXAM: LUNGS: Fair entry. CARDIOVASCULAR: 1st and 2nd sounds normal. Talking at baseline. HOME GO MEDICATIONS: 1. Aspirin 325 p.o. b.i.d. 2. Vitamin D3 1000 units p.o. daily. 3. Lexapro 20 mg p.o. daily. 4. Claritin 10 mg p.o. daily. 5. MiraLAX 17 g p.o. daily p.r.n. 6. Inderal 20 mg p.o. b.i.d. 7. Flomax 0.8 mg p.o. q.h.s. 8. Melatonin 10 mg p.o. q.h.s. 9. Mysoline 250 mg p.o. b.i.d. 10.Lactulose 10 grams p.o. b.i.d. p.r.n. 11.Tylenol 650 mg q.6h p.r.n. 12.Calmoseptine ointment topical q.12. 13.Robitussin 10 mL q.4h p.r.n. 14.Augmentin 875 1 tablet p.o. q.12; 10 tablets. 15.Tamiflu 75 mg p.o. q.12. 16.Klonopin 1 mg p.o. b.i.d. and Klonopin 2 mg p.o. q.h.s. p.r.n. 17.Ultram 100 mg p.o. q.6 p.r.n. DISPOSITION: April. FOLLOW: Follow with Dr. Morrissey at [facility]. Diet assisted with aspiration precautions including head of the bed elevated. MMODL / IJN: [id number] /
[2018-02-16 14:53] VITALS: BP 128/55; PULSE 65; RESP 26; TEMP 98.7
== END 2018-02-16 17:40 | DRG 871 ==
LOC: EC 23:45 → 4MS4W 02-10 02:49 → OBSVTOIN 02-13 08:04 → 4MS4W 02-13 16:41
PROVIDERS: ADMIT Hospitalist; ATTEND Hospitalist
DX: A41.9 Sepsis, unspecified organism (principal); J69.0 Pneumonitis due to inhalation of food and vomit; G20 Parkinson's disease; N39.0 Urinary tract infection, site not specified; F32.9 Major depressive disorder, single episode, unspecified; G25.3 Myoclonus; G80.9 Cerebral palsy, unspecified; I10 Essential (primary) hypertension; J10.1 Influenza due to other identified influenza virus with other respiratory manifestations; K21.9 Gastro-esophageal reflux disease without esophagitis; M15.9 Polyosteoarthritis, unspecified; N40.0 Benign prostatic hyperplasia without lower urinary tract symptoms; Z79.82 Long term (current) use of aspirin; Z79.899 Other long term (current) drug therapy; Z82.49 Family history of ischemic heart disease and other diseases of the circulatory system; Z86.14 Personal history of Methicillin resistant Staphylococcus aureus infection; Z87.01 Personal history of pneumonia (recurrent); Z96.643 Presence of artificial hip joint, bilateral; Z91.5 Personal history of self-harm; B95.2 Enterococcus as the cause of diseases classified elsewhere
CPT/HCPCS: 36415; 71045; 71046; 80048; 80053; 81001; 82150; 82550; 82553; 83605; 83690; 84484; 85025; 85027; 85610; 85730; 87040; 87086; 87502; 93005; 96365; 96368; 99285

== ENCOUNTER → 2019-11-29 | Outpatient (CLI) | payer MEDICARE, OTHER | END | disposition home or self-care (01) | LOC: EEVIPCON 11-14 11:00 → RADNMMAIN 10:42 | PROVIDERS: ATTEND Psychiatry & Neurology Pain Medicine | DX: Z53.9 Procedure and treatment not carried out, unspecified reason (principal) ==